=== PATIENT | female | born 1935 | race Caucasian/White ===

== ENCOUNTER → 2016-04-30 | Outpatient (CLI) | payer MEDICARE, BC, OTHER ==
--- NOTE | 2016-04-30 10:22 | REP ---
Chest PA and lateral views: There are no comparison studies. There is a 5.3 cm mass projected over the right lung inferiorly. I would recommend follow-up CT for further evaluation of this finding. The left lung is clear. Cardiac size is normal. The right hilus appears enlarged. The left hilus as are. The mediastinum and bony thorax unremarkable. Impression: There is a 5.3 cm mass projected over the right lung inferiorly. The right hilus is enlarged. I would recommend CT for follow-up. Signed by Brandon Cui MD 04/30/2016 10:13 A
== END ==
LOC: M ADAMS 09:51
PROVIDERS: ATTEND Physician Assistant
DX: R91.8 Other nonspecific abnormal finding of lung field (principal); R05 Cough
CPT/HCPCS: 71020; G0463

== ENCOUNTER → 2016-05-08 | Outpatient (REF) | payer MEDICARE, OTHER ==
[~2016-05-08] MED LIST: ALEV220T26 PO; AMBI5TAB PO; BUPR100T3 PO; CALC600T10 PO; DRIS50002 PO; LEVO75TA4 PO; OCUVTAB PO; RANI150T PO; XARE20TA PO
[2016-05-08 18:06] LABS: ANION GAP 8 MEQ/L (8-16); BLOOD UREA NITROGEN 13 MG/DL (7-18); CARBON DIOXIDE LEVEL 26 MEQ/L (21-32); CHLORIDE LEVEL 105 MEQ/L (98-107); CREATININE FOR GFR 0.88 MG/DL (0.55-1.02); GLOMERULAR FILTRATION RATE > 60.0 (>32); GLUCOSE, FASTING 116 MG/DL (83-110); POTASSIUM SERUM 4.9 MEQ/L (3.5-5.1); SODIUM LEVEL 139 MEQ/L (136-145)
== END ==
LOC: M SFHCADAM 09:25
PROVIDERS: ATTEND Family Medicine
DX: R91.8 Other nonspecific abnormal finding of lung field (principal)

== ENCOUNTER → 2016-05-12 | Outpatient (CLI) | payer MEDICARE, BC, OTHER ==
[~2016-05-12] MED LIST changes: -ALEV220T26 PO; -AMBI5TAB PO; -BUPR100T3 PO; -CALC600T10 PO; -DRIS50002 PO; +ISOVUE-370 76% 100ML VIAL (Q9967) As Ordered ONE; -LEVO75TA4 PO; -OCUVTAB PO; -RANI150T PO; -XARE20TA PO
--- NOTE | 2016-05-12 09:20 | REP ---
CT CHEST WITH CONTRAST: 05/12/2016. COMPARISON: x-ray 04/30/2016. CLINICAL HISTORY: Abnormal chest x-ray, right lower lobe mass. TECHNIQUE: 75 ml as Isovue 370 given with scanning through the chest in both coronal and sagittal reconstructions. FINDINGS: In the lateral basal segment of the right lower lobe abutting the pleura is a lobulated solid mass 5.5 x 5.2 x 3.8 cm medial basal segment. Also abutting the pleura is another mass 5.5 x 4 x 2.8 cm. Some hypodense areas within this mass which may reflect some necrosis. There is only one or two small calcifications evident. There is no pleural effusion. I see no other lung masses. There are a few peripheral bullae evident and there is bilateral cylindrical bronchiectasis. There is hilar, subcarinal, precarinal, AP window and prevascular space adenopathy. The left hilum does not appear to have adenopathy. The largest nodes are 18 mm in the right hilum, 23 mm subcarinal, 23 mm precarinal, 13 mm in the AP window, 13 mm in prevascular space, and other sub-centimeter nodes throughout the mediastinum. No axillary or supraclavicular mass. There are a few scattered bullae in the chest with hyperinflation. The aorta is without aneurysm or dissection and has atherosclerotic calcifications arch and descending portion. The main right and left pulmonary arteries and mediastinum are without filling defects. Bone windows show the sternum, manubrium, clavicles, humeral heads and scapula without destructive lesion. There are degenerative changes of the AC and glenohumeral joints. Visualized ribs are without fracture or destructive lesion. Spine shows some degenerative disc changes without acute compression deformity. In the upper abdomen, multiple small cysts scattered in both lobes of the liver, the largest in the lateral segment on the left up to 14 mm. No solid hepatic mass or biliary dilatation. No ascites. That portion of gallbladder and pancreas included were unremarkable. No adrenal mass is identified. Upper poles kidneys intact. Upper poles of kidneys intact. That portion of the pancreas seen was intact. No hiatal hernia. IMPRESSION: 1. There are two masses in the right lower lobe, one in the lateral basal segment 5.5 cm subpleural and the other in the medial basal segment also posteriorly lower lobe on the right with maximum diameter of 5.5 x 4 cm. No effusions. No satellite nodules. Some underlying cylindrical bronchiectasis and right hilar, subcarinal, precarinal, AP window and prevascular space pathologic sized adenopathy. No visible bony metastatic disease or other significant finding. Upper abdomen intact. Signed by Shalom Willson MD 05/12/2016 10:20 A
== END ==
LOC: M RAD 07:18
PROVIDERS: ATTEND Family Medicine
DX: R91.8 Other nonspecific abnormal finding of lung field (principal); J47.9 Bronchiectasis, uncomplicated
CPT/HCPCS: 71260; Q9967

== ENCOUNTER 2016-05-24 12:24 | Emergency (ER) | payer MEDICARE, BC, OTHER ==
[2016-05-24] MEDS ORDERED: ONDANSETRON 4MG/2ML VIAL (J2405) As Ordered ONE ×2 (14:06→15:33)
[2016-05-24 14:32] LABS: MEAN CORPUSCULAR HGB CONC 34.5 g/dl (32.0-36.5); MEAN CORPUSCULAR VOLUME 89.9 fl (80.0-96.0); WHITE BLOOD COUNT 9.5 K/mm3 (4.0-10.0)
[2016-05-24 14:33] LABS: LYMPH % 7.9 % (24.0-44.0); NEUTROPHILS % 84.8 % (36.0-66.0); PLATELET COUNT, AUTOMATED 365 k/mm3 (150-450); RED CELL DISTRIBUTION WIDTH 12.5 % (11.5-14.5)
[2016-05-24 14:34] LABS: BASO % 0.2 % (0.0-1.0); DIFF SLIDE NUMBER 150; EOS # 0.1 K/mm3 (0.0-0.50); EOS % 1.2 % (0.0-3.0); LARGE UNSTAINED CELL # 0.1 K/mm3 (0.0-0.4); LARGE UNSTAINED CELL % 0.6 % (0.0-4.0); LYMPH # 0.8 K/mm3 (1.5-4.5); MONO # 0.5 K/mm3 (0.0-0.8); MONO % 5.2 % (0.0-5.0); NEUTROPHILS # 8.1 K/mm3 (1.8-7.7)
[2016-05-24 14:36] LABS: CONTROL LINE MONO INT CTR LINE PRESENT
[2016-05-24 14:44] LABS: ALBUMIN 3.3 GM/DL (3.2-5.2); ALBUMIN/GLOBULIN RATIO 0.89 (1.00-1.93); ALKALINE PHOSPHATASE 94 U/L (45-117); ALT/SGPT 14 U/L (12-78); ANION GAP 10 MEQ/L (8-16); AST/SGOT 18 U/L (15-37); BILIRUBIN,TOTAL 0.6 MG/DL (0.2-1.0); BLOOD UREA NITROGEN 20 MG/DL (7-18); CALCIUM LEVEL 9.1 MG/DL (8.8-10.2); CARBON DIOXIDE LEVEL 25 MEQ/L (21-32); CHLORIDE LEVEL 102 MEQ/L (98-107); CREATININE FOR GFR 0.71 MG/DL (0.55-1.02); GLOMERULAR FILTRATION RATE > 60.0 (>32); GLUCOSE, FASTING 107 MG/DL (83-110); POTASSIUM SERUM 4.2 MEQ/L (3.5-5.1); SODIUM LEVEL 137 MEQ/L (136-145)
--- NOTE | 2016-05-24 14:49 | REP ---
Clinical: Chest pain and cough. Technique: PA and lateral. Comparison: 04/30/2016. Findings: 5 cm right lower lobe mass lesion and bilateral hilar adenopathy (right greater than left) is again appreciated. Underlying chronic interstitial changes noted. No effusion. No pneumothorax. Cardiac silhouette is normal. Skeletal structures demonstrate age-related changes. Impression: 5 cm right lower lobe mass and hilar adenopathy. Signed by Bhavesh Dillard MD 05/24/2016 02:40 P
[2016-05-24] MEDS ORDERED: MORPHINE 4 MG/ML 1ML SYRINGE As Ordered ONE (15:33)
[2016-05-24] MEDS ORDERED: ISOVUE-370 76% 100ML VIAL (Q9967) As Ordered ONE (15:35)
--- NOTE | 2016-05-24 16:53 | REP ---
Clinical: Acute chest pain. Comparison: 05/12/2016. Technique: Axial contrast enhanced images from the thoracic inlet to the upper abdomen using 100 ml Isovue 370 intravenous contrast material with coronal and sagittal re-formations. Findings: Satisfactory enhancement of the pulmonary vasculature is achieved and no filling defects are identified to suggest pulmonary embolus. Marked mediastinal and right hilar adenopathy with conglomerate lymph nodes at the level of the subcarinal space measuring greater than 4.5 cm AP diameter appears to have increased since the prior examination. Heterogeneous multilobulated right lower lobe neoplasm is essentially unchanged. Diffuse interstitial thickening involving the right lower lobe and right perihilar region may reflect associated lymphangitic metastatic disease. Chronic interstitial changes including scattered bullae and bronchiectasis noted bilaterally. Heart and pericardium are stable. Atherosclerotic changes to the coronary arteries and thoracic aorta noted without aneurysm. No obvious pericardial effusion. Limited evaluation of the upper abdomen demonstrates innumerable hepatic hypodensities which are otherwise nonspecific and similar to prior examination. The bilateral adrenal glands are grossly unremarkable. Osseous structures demonstrate degenerative changes. Impression: No evidence for pulmonary embolus. Severe mediastinal and right hilar adenopathy with multinodular right lower lobe lung mass. Chronic emphysematous and interstitial changes with bronchiectasis. Nonspecific hepatic hypodensities. Signed by Bhavesh Dillard MD 05/24/2016 04:45 P
[2016-05-24] MEDS ORDERED: AUGMENTIN 875 MG TAB As Ordered ONE (17:54)
--- NOTE | 2016-05-24 18:02 | EDDOCDS ---
Physician Documentation [facility] Name: Kasia Sandoval Age: 81 yrs Sex: Female : 1935 Arrival Date: 05/24/2016 Time: 12:24 Bed I4 / M4 Private MD: Warren Marx MD Disposition: 05/24/16 17:48 Discharged to Home/Self Care. Impression: Acute sinusitis, Other disorders of lung - Right Lower Lobe Lung Mass on CT and CXR, Bronchiectasis, Atherosclerosis - Coronary arteries and thoracic aorta on CT, Nausea and vomiting, Emphysema - Chronic. - Condition is Stable. - Discharge Instructions: Sinusitis, Adult, Bronchiectasis. - Prescriptions for Augmentin 875- 125 mg Oral Tablet - take 1 tablet by ORAL route every 12 hours for 10 days; 20 tablet. ZOFRAN ODT 4 mg - dissolve 1 tablet by ORAL route 4 times per day As needed do not chew, do not swallow whole; 10 tablet. - Medication Reconciliation, Local Pharmacy Hours form. - Follow up: Warren Marx; When: 1 - 2 days; Reason: Recheck today's complaints, Continuance of care. Follow up: Emergency Department; Reason: Worsening of conditions. Follow up: Keo Villavicencio; When: Call to arrange an appointment; Reason: Further diagnostic work-up, Recheck today's complaints, Continuance of care. Follow up: Nat Marin; When: Call to arrange an appointment; Reason: Further diagnostic work-up, Recheck today's complaints, Continuance of care. - Problem is new. - Symptoms have improved. Historical: - Allergies: Levaquin (Hives); - Home Meds: 1. levothyroxine 75 mcg Oral cap 1 cap once daily (Last dose: 05/24/2016 09:00) 2. bupropion HCl 100 mg Oral TbER 1 tab once daily (Last dose: 05/24/2016 09:00) 3. Vitamin D Oral 50,000 unit every other week 4. Ambien 5 mg Oral tab 1 tab once daily (Last dose: 05/23/2016) - PMHx: Hypothyroidism; - PSHx: none; - Social history: Smoking status: Patient states former smoker of tobacco. No barriers to communication noted, The patient speaks fluent [place], Speaks appropriately for age. - Family history: Not pertinent. - : The pt / caregiver states he / she is not on anticoagulants. Home medication list is obtained from the patient. - Exposure Risk Screening:: None identified. Vital Signs: 05/24 12:26 BP 142 / 73; Pulse 99; Resp 18 S; Temp 97.8(O); Pulse Ox 98% on R/A; Weight 65.77 kg / gr2 145 lbs (R); Height 5 ft. 6 in. (167.64 cm) (R); Pain 5/10; 15:30 BP 160 / 88 LA (man/); Pulse 98; Resp 18; Temp 97.8(O); Pulse Ox 98% on R/A; ld5 17:04 Pulse 102; Pulse Ox 97% on R/A; mb9 17:33 BP 167 / 82; Pulse 126; Resp 18; Temp 98.3(O); Pulse Ox 95% on R/A; Pain 0/10; nb2 12:26 Body Mass Index 23.40 (65.77 kg, 167.64 cm) gr2 MDM: 12:56 [facility] Payment Agreement was scanned into [employer] and attached to record. [id number] 13:45 Financial registration complete. ks16 13:46 Obtain sample by nasopharyngeal swab ordered. ef1 13:47 Monoscreen Ordered. EDMS 13:47 BNP Ordered. EDMS 13:47 CBC with Diff Ordered. EDMS 13:47 Complete Comphrensive Metabolic Ordered. EDMS 13:47 Cardiac Injury Profile Ordered. EDMS 13:47 Troponin Ordered. EDMS 13:47 Strep Screen-in lab Ordered. EDMS 13:48 -Influenza A&B Rapid Antigen - Nose Ordered. EDMS 13:48 Chest, 2 View (pa\E\lat) Ordered. EDMS 13:48 ECG WITH READING ER PHYS+CARDIAG ordered. EDMS 13:49 IV Saline Lock ordered. ef1 13:49 Ondansetron 4 mg IVP once ordered. ef1 14:03 NS 0.9% 500 ml IV at bolus once ordered. ef1 14:19 Pulse ox continuous ordered. ef1 14:23 GATS(NEG STREP SCREEN) ED ONLY Ordered. EDMS 14:51 BNP Reviewed. ef1 14:51 CBC with Diff Reviewed. ef1 14:51 Complete Comphrensive Metabolic Reviewed. ef1 14:51 Strep Screen-in lab Reviewed. ef1 14:51 -Influenza A&B Rapid Antigen - Nose Reviewed. ef1 14:51 Monoscreen Reviewed. ef1 14:51 Cardiac Injury Profile Reviewed. ef1 14:51 Troponin Reviewed. ef1 14:53 Recheck Vital Signs, perform reassessment and enter into [employer] ordered. ef1 14:54 CT Chest Angio R/O PE Ordered. EDMS 15:31 morphine 4 mg IVP once ordered. ef1 15:32 Ondansetron 2 mg IVP once ordered. ef1 17:44 Amoxicillin-Clavulanate 875 mg 1 tabs PO once ordered. ef1 Administered Medications: 14:17 Drug: Ondansetron 4 mg [ondansetron HCl 2 mg/mL intravenous solution (2 mL)] Route: mb9 IVP; Site: right antecubital; 14:17 Drug: NS 0.9% 500 ml [sodium chloride 0.9 % intravenous solution] Route: IV; Rate: mb9 bolus; Site: right antecubital; 15:31 Follow up: IV Status: Completed infusion; IV Intake: 500ml ld5 15:42 Drug: Ondansetron 2 mg [ondansetron HCl 2 mg/mL intravenous solution (1 mL)] Route: ld5 IVP; Site: right antecubital; 15:43 Drug: morphine 4 mg [morphine 4 mg/mL intravenous cartridge (1 mL)] Route: IVP; Site: ld5 right antecubital; 17:59 Drug: Amoxicillin-Clavulanate 1 tabs [amoxicillin 875 mg-potassium clavulanate 125 mg dls tablet (1 tabs)] Route: PO; Signatures: Dispatcher [employer] EDMS Cathie Cm, RN RN dls Kelle Lockhart PA-C PA-C ef1 Larissa Chavez RN RN dsf Melissa Morales, Reg Reg ks16 Kiana Almanzar RN ld5 Iam Thompson RN mb9 The chart was reviewed and I authenticate all verbal orders and agree with the evaluation and treatment provided.Attachments: 12:56 [facility] Payment Agreement [email or web address]
--- NOTE | 2016-05-24 18:02 | EDDOCDS ---
Nurse's Notes [facility] Name: Kasia Sandoval Age: 81 yrs Sex: Female : 1935 Arrival Date: 05/24/2016 Time: 12:24 Bed I4 / M4 Private MD: Warren Marx MD Diagnosis: Acute sinusitis;Other disorders of lung-Right Lower Lobe Lung Mass on CT and CXR;Bronchiectasis;Atherosclerosis-Coronary arteries and thoracic aorta on CT;Nausea and vomiting;Emphysema-Chronic Presentation: 05/24 12:33 Presenting complaint: Patient states: sick for a week. pt reports not eating or dsf drinking. pt c/o nausea, and CHISHOLM. pt denies abdominal pain. Adult Sepsis Screening: The patient does not have new or worsening altered mentation. Patient's respiratory rate is less than 22. Systolic blood pressure is greater than 100. Patient has a qSOFA score of 0- Negative Sepsis Screen. Suicide/Homicide risk assessment- the patient denies having any suicidal and/or homicidal ideations and does not present with any other emotional, behavioral or mental health complaints. Status: Patient is not a field service coordinator or dependent. Transition of care: patient was not received from another setting of care. 12:33 Acuity: ILDA Level 3 dsf 12:33 Method Of Arrival: Walkin/Carried/Asstd dsf Triage Assessment: 12:35 General: Appears in no apparent distress, Behavior is appropriate for age, cooperative. dsf Pain: Location: forehead Pain currently is 4 out of 10 on a pain scale. Quality of pain is described as aching. GI: Reports nausea. Historical: - Allergies: Levaquin (Hives); - Home Meds: 1. levothyroxine 75 mcg Oral cap 1 cap once daily (Last dose: 05/24/2016 09:00) 2. bupropion HCl 100 mg Oral TbER 1 tab once daily (Last dose: 05/24/2016 09:00) 3. Vitamin D Oral 50,000 unit every other week 4. Ambien 5 mg Oral tab 1 tab once daily (Last dose: 05/23/2016) - PMHx: Hypothyroidism; - PSHx: none; - Social history: Smoking status: Patient states former smoker of tobacco. No barriers to communication noted, The patient speaks fluent Danish, Speaks appropriately for age. - Family history: Not pertinent. - : The pt / caregiver states he / she is not on anticoagulants. Home medication list is obtained from the patient. - Exposure Risk Screening:: None identified. Screenin:00 Screening information is obtained from the patient. Fall risk: No risks identified. dls Assistance ADL's: requires no assistance with activities of daily living. Abuse/DV Screen: The patient / caregiver reports he/she is: not in a situation that causes fear, pain or injury. Nutritional screening: No deficits noted. Advance Directives: Currently, there is no health care proxy. There is no active DNR order. There is no living will. There is no Power of [employer]. Advance directive information has not previously been placed in an [facility] medical record. home support is adequate. Assessment: 14:18 General: Appears uncomfortable, Behavior is appropriate for age, cooperative. Pain: mb9 Location: abdomen Pain currently is 0 out of 10 on a pain scale. Aggravated by coughing and deep inspiration. Respiratory: Airway is patent Respiratory effort is even, unlabored, Breath sounds are clear bilaterally. 15:30 General: Pt laying quietly in bed. BP noted to be higher than ER arrival. Pt reports ld5 headache but states it is unchanged since arrival. Provider made aware of vitals. 15:45 General: Behavior is anxious, cooperative, Pt medicated per orders. SO at bedside. Will ld5 continue to monitor. 17:04 General: Appears in no apparent distress, Behavior is appropriate for age, cooperative. mb9 Respiratory: Airway is patent Respiratory effort is even, unlabored. Vital Signs: 12:26 BP 142 / 73; Pulse 99; Resp 18 S; Temp 97.8(O); Pulse Ox 98% on R/A; Weight 65.77 kg gr2 (R); Height 5 ft. 6 in. (167.64 cm) (R); Pain 5/10; 15:30 BP 160 / 88 LA (man/); Pulse 98; Resp 18; Temp 97.8(O); Pulse Ox 98% on R/A; ld5 17:04 Pulse 102; Pulse Ox 97% on R/A; mb9 17:33 BP 167 / 82; Pulse 126; Resp 18; Temp 98.3(O); Pulse Ox 95% on R/A; Pain 0/10; nb2 12:26 Body Mass Index 23.40 (65.77 kg, 167.64 cm) gr2 Vitals: 12:26 Log In Time: May 24, 2016 at 12:26. gr2 ED Course: 12:26 Patient visited by Codi Boucher. gr2 12:26 Warren Marx is Private Physician. gr2 12:26 Patient moved to Waiting gr2 12:27 Patient visited by Codi Boucher. gr2 12:27 Patient moved to Pre RCE gr2 12:33 Triage Initiated dsf 12:56 [facility] Payment Agreement was scanned into [employer] and attached to record. ks16 13:12 Patient moved to Triage 3 kr3 13:45 Kelle Lockhart PA-C is PHCP. ef1 13:45 Hilda Flanagan MD is Attending Physician. ef1 13:45 Patient visited by Kelle Lockhart PA-C. ef1 13:52 Patient moved to I4 / M4 ct3 13:59 Accompanied by Family Member, Patient has correct armband on for positive ct3 identification. Placed in gown. Bed in low position. Call light in reach. Side rails up X 1. Cardiac monitoring not applicable on this patient. 13:59 EKG done. (by ED staff). Reviewed by Kelle Lockhart PA-C. ct3 14:01 Patient visited by Sara Rodas PCA. ct3 14:17 Troponin Sent. mb9 14:17 Cardiac Injury Profile Sent. mb9 14:17 Complete Comphrensive Metabolic Sent. mb9 14:17 CBC with Diff Sent. mb9 14:17 BNP Sent. mb9 14:18 Monoscreen Sent. mb9 14:19 Patient visited by Kelle Lockhart PA-C. ef1 14:23 Inserted saline lock: 18 gauge in right antecubital area and blood collected. The mb9 patient tolerated the procedure well. 14:50 Patient visited by Kelle Lockhart PA-C. ef1 14:58 Chest, 2 View (pa\E\lat) Returned. EDMS 15:21 Patient visited by Kelle Lockhart PA-C. ef1 15:45 Patient visited by Kiana Almanzar RN. ld5 16:10 Patient visited by Kelle Lockhart PA-C. ef1 16:33 GATS(NEG STREP SCREEN) ED ONLY Sent. mb9 16:42 Patient visited by Kelle Lockhart PA-C. ef1 17:09 Patient visited by Kelle Lockhart PA-C. ef1 17:31 CT Chest Angio R/O PE Returned. EDMS 17:34 Patient visited by Brittany Esquivel. nb2 17:45 Warren Marx is Referral Physician. ef1 17:45 Keo Villavicencio is Referral Physician. ef1 17:45 Nat Marin is Referral Physician. ef1 17:59 Discontinued IV lock intact, bleeding controlled, pressure dressing applied, No dls redness/swelling at site. No procedures done that require assistance. 18:00 The patient / caregiver is instructed regarding the plan of care and ED course. dls Administered Medications: 14:17 Drug: Ondansetron 4 mg [ondansetron HCl 2 mg/mL intravenous solution (2 mL)] Route: mb9 IVP; Site: right antecubital; 14:17 Drug: NS 0.9% 500 ml [sodium chloride 0.9 % intravenous solution] Route: IV; Rate: mb9 bolus; Site: right antecubital; 15:31 Follow up: IV Status: Completed infusion; IV Intake: 500ml ld5 15:42 Drug: Ondansetron 2 mg [ondansetron HCl 2 mg/mL intravenous solution (1 mL)] Route: ld5 IVP; Site: right antecubital; 15:43 Drug: morphine 4 mg [morphine 4 mg/mL intravenous cartridge (1 mL)] Route: IVP; Site: ld5 right antecubital; 17:59 Drug: Amoxicillin-Clavulanate 1 tabs [amoxicillin 875 mg-potassium clavulanate 125 mg dls tablet (1 tabs)] Route: PO; Intake: 15:31 IV: 500.00ml; Total: 500.00ml. ld5 Order Results: Lab Order: Strep Screen-in lab; SPEC'M 05/24/16 13:51 Test: STREP SCREEN by ICA; Value: STREP SCREEN RESULT NEGATIVE; Status: F Lab Order: -Influenza A&B Rapid Antigen - Nose; SPEC'M 05/24/16 13:51 Test: INFLUENZA A RAPID SCR by ICA; Value: INFLUENZA A RESULTS NEGATIVE; Status: F Test: INFLUENZA A RAPID SCR by ICA; Value: Comments:; Status: F Test: INFLUENZA B RAPID SCR by ICA; Value: INFLUENZA B RESULTS NEGATIVE; Status: F Test Note: ; The Influenza test is a direct rapid immunoassay for the qualitative detection of Influenza viral antigen. Cell culture (Viral Culture) testing should be considered to confirm NEGATIVE results and to assist in detecting other viruses that can provide similar clinical symptoms. Please contact the lab within 24 hours ([phone]) if confirmatory testing is desired. Lab Order: Monoscreen; SPEC'M 05/24/16 14:14 Test: MONO SCRN; Value: NEGATIVE; Range: NEGATIVE; Status: F Lab Order: BNP; SPEC'M 05/24/16 14:14 Test: BRAIN NATRIURETIC PEPTIDE; Value: 112; Range: <100; Abnormal: Above high normal; Units: PG/ML; Status: F Lab Order: CBC with Diff; SPEC'M 05/24/16 14:14 Test: WHITE BLOOD COUNT; Value: 9.5; Range: 4.0-10.0; Units: K/mm3; Status: F Test: RED BLOOD COUNT; Value: 3.96; Range: 4.00-5.40; Abnormal: Below low normal; Units: M/mm3; Status: F Test: HEMOGLOBIN; Value: 12.3; Range: 12.0-16.0; Units: g/dl; Status: F Test: HEMATOCRIT; Value: 35.6; Range: 36.0-47.0; Abnormal: Below low normal; Units: %; Status: F Test: MEAN CORPUSCULAR VOLUME; Value: 89.9; Range: 80.0-96.0; Units: fl; Status: F Test: MEAN CORPUSCULAR HEMOGLOBIN; Value: 31.0; Range: 27.0-33.0; Units: pg; Status: F Test: MEAN CORPUSCULAR HGB CONC; Value: 34.5; Range: 32.0-36.5; Units: g/dl; Status: F Test: RED CELL DISTRIBUTION WIDTH; Value: 12.5; Range: 11.5-14.5; Units: %; Status: F Test: PLATELET COUNT, AUTOMATED; Value: 365; Range: 150-450; Units: k/mm3; Status: F Test: NEUTROPHILS %; Value: 84.8; Range: 36.0-66.0; Abnormal: Above high normal; Units: %; Status: F Test: LYMPH %; Value: 7.9; Range: 24.0-44.0; Abnormal: Below low normal; Units: %; Status: F Test: MONO %; Value: 5.2; Range: 0.0-5.0; Abnormal: Above high normal; Units: %; Status: F Test: EOS %; Value: 1.2; Range: 0.0-3.0; Units: %; Status: F Test: BASO %; Value: 0.2; Range: 0.0-1.0; Units: %; Status: F Test: LARGE UNSTAINED CELL %; Value: 0.6; Range: 0.0-4.0; Units: %; Status: F Test: NEUTROPHILS #; Value: 8.1; Range: 1.8-7.7; Abnormal: Above high normal; Units: K/mm3; Status: F Test: LYMPH #; Value: 0.8; Range: 1.5-4.5; Abnormal: Below low normal; Units: K/mm3; Status: F Test: MONO #; Value: 0.5; Range: 0.0-0.8; Units: K/mm3; Status: F Test: EOS #; Value: 0.1; Range: 0.0-0.50; Units: K/mm3; Status: F Test: BASO #; Value: 0.0; Range: 0.0-0.2; Units: K/mm3; Status: F Test: LARGE UNSTAINED CELL #; Value: 0.1; Range: 0.0-0.4; Units: K/mm3; Status: F Lab Order: Complete Comphrensive Metabolic; SPEC'M 05/24/16 14:14 Test: GLUCOSE, FASTING; Value: 107; Range: 83-110; Units: MG/DL; Status: F Test: BLOOD UREA NITROGEN; Value: 20; Range: 7-18; Abnormal: Above high normal; Units: MG/DL; Status: F Test: CREATININE FOR GFR; Value: 0.71; Range: 0.55-1.02; Units: MG/DL; Status: F Test: SODIUM LEVEL; Range: 136-145; Units: MEQ/L; Status: I Test: POTASSIUM SERUM; Range: 3.5-5.1; Units: MEQ/L; Status: I Test: CHLORIDE LEVEL; Range: 98-107; Units: MEQ/L; Status: I Test: CARBON DIOXIDE LEVEL; Range: 21-32; Units: MEQ/L; Status: I Test: ANION GAP; Range: 8-16; Units: MEQ/L; Status: I Test: CALCIUM LEVEL; Range: 8.8-10.2; Units: MG/DL; Status: I Test: AST/SGOT; Range: 15-37; Units: U/L; Status: I Test: ALT/SGPT; Range: 12-78; Units: U/L; Status: I Test: ALKALINE PHOSPHATASE; Range: 45-117; Units: U/L; Status: I Test: BILIRUBIN,TOTAL; Range: 0.2-1.0; Units: MG/DL; Status: I Test: TOTAL PROTEIN; Range: 6.4-8.2; Units: GM/DL; Status: I Test: ALBUMIN; Range: 3.2-5.2; Units: GM/DL; Status: I Test: ALBUMIN/GLOBULIN RATIO; Range: 1.00-1.93; Status: I Test: GLOMERULAR FILTRATION RATE; Value: > 60.0; Range: >32; Status: F Test: SODIUM LEVEL; Value: 137; Range: 136-145; Units: MEQ/L; Status: F Test: POTASSIUM SERUM; Value: 4.2; Range: 3.5-5.1; Units: MEQ/L; Status: F Test: CHLORIDE LEVEL; Value: 102; Range: 98-107; Units: MEQ/L; Status: F Test: CARBON DIOXIDE LEVEL; Value: 25; Range: 21-32; Units: MEQ/L; Status: F Test: ANION GAP; Value: 10; Range: 8-16; Units: MEQ/L; Status: F Test: CALCIUM LEVEL; Value: 9.1; Range: 8.8-10.2; Units: MG/DL; Status: F Test: AST/SGOT; Value: 18; Range: 15-37; Units: U/L; Status: F Test: ALT/SGPT; Value: 14; Range: 12-78; Units: U/L; Status: F Test: ALKALINE PHOSPHATASE; Value: 94; Range: 45-117; Units: U/L; Status: F Test: BILIRUBIN,TOTAL; Value: 0.6; Range: 0.2-1.0; Units: MG/DL; Status: F Test: TOTAL PROTEIN; Value: 7.0; Range: 6.4-8.2; Units: GM/DL; Status: F Test: ALBUMIN; Value: 3.3; Range: 3.2-5.2; Units: GM/DL; Status: F Test: ALBUMIN/GLOBULIN RATIO; Value: 0.89; Range: 1.00-1.93; Abnormal: Below low normal; Status: F Test Note: ; Units are mL/min/1.73 m2 Chronic Kidney Disease Staging per NKF: Stage I & II GFR >=60 Normal to Mildly Decreased Stage III GFR 30-59 Moderately Decreased Stage IV GFR 15-29 Severely Decreased Stage V GFR <15 Very Little GFR Left ESRD GFR <15 on CLINICAL TRIALS ASSISTANT Lab Order: Cardiac Injury Profile; SPEC'M 05/24/16 14:14 Test: CPK CREATINE PHOSPHOKINASE; Value: 35; Range: 26-192; Units: U/L; Status: F Test: CK-MB VALUE MASS; Value: 1.0; Range: 0.0-3.6; Units: NG/ML; Status: F Test: MB/CK RELATIVE INDEX; Value: 2.85; Range: < OR =4; Status: F Test Note: ; DIAGNOSIS CRITERIA MMB ng/ml Relative Index (RI) NON-AMI < or = 5 N/A LANZA ZONE > 5 < or = 4 AMI > 5 > 4 Lab Order: Troponin; SPEC'M 05/24/16 14:14 Test: TROPONIN I; Value: < 0.02; Range: < 0.10; Units: NG/ML; Status: F Test Note: ; Troponin I Reference Interval for [employer] LOCI: 99th Percentile= 0.00-0.045 ng/ml Risk Stratification: <= 0.10 ng/ml Decreased Risk for Adverse Clinical Events. 0.10-1.50 ng/ml Increased Risk for Adverse Clinical Events. Evaluation of additional criterion and/or repeat testing in 2-6 hours is suggested to rule out myocardial damage. >= 1.50 ng/ml Indicative of Myocardial Injury. Radiology Order: Chest, 2 View (pa\E\lat) Test: Chest, 2 View (pa\E\lat) REASON FOR EXAMINATION: Cough;Chest Pain; Clinical: Chest pain and cough.; ; Technique: PA and lateral.; ; Comparison: 04/30/2016.; ; Findings:; 5 cm right lower lobe mass lesion and bilateral hilar adenopathy (right greater; than left) is again appreciated. Underlying chronic interstitial changes noted.; No effusion. No pneumothorax. Cardiac silhouette is normal. Skeletal; structures demonstrate age-related changes.; ; Impression:; 5 cm right lower lobe mass and hilar adenopathy.; ; ; Signed by; Bhavesh Dillard MD 05/24/2016 02:40 P; Radiology Order: CT Chest Angio R/O PE Test: CT Chest Angio R/O PE REASON FOR EXAMINATION: Chest Pain; Clinical: Acute chest pain.; ; Comparison: 05/12/2016.; ; Technique: Axial contrast enhanced images from the thoracic inlet to the upper; abdomen using 100 ml Isovue 370 intravenous contrast material with coronal and; sagittal re-formations.; ; Findings:; Satisfactory enhancement of the pulmonary vasculature is achieved and no filling; defects are identified to suggest pulmonary embolus.; ; Marked mediastinal and right hilar adenopathy with conglomerate lymph nodes at; the level of the subcarinal space measuring greater than 4.5 cm AP diameter; appears to have increased since the prior examination. Heterogeneous; multilobulated right lower lobe neoplasm is essentially unchanged. 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 Chronic interstitial; changes including scattered bullae and bronchiectasis noted bilaterally. Heart; and pericardium are stable. Atherosclerotic changes to the coronary arteries and; thoracic aorta noted without aneurysm. No obvious pericardial effusion.; ; Limited evaluation of the upper abdomen demonstrates innumerable hepatic; hypodensities which are otherwise nonspecific and similar to prior examination.; The bilateral adrenal glands are grossly unremarkable. Osseous structures; demonstrate degenerative changes.; ; ; Impression:; No evidence for pulmonary embolus.; Severe mediastinal and right hilar adenopathy with multinodular right lower lobe; lung mass.; Chronic emphysematous and interstitial changes with bronchiectasis.; Nonspecific hepatic hypodensities.; ; ; Signed by; Bhavesh Dillard MD 05/24/2016 04:45 P; Outcome: 17:48 Discharge ordered by Provider. ef1 17:59 Discharge Assessment: Patient awake, alert and oriented x 3. No cognitive and/or dls functional deficits noted. Patient verbalized understanding of disposition instructions. patient administered narcotics - no. The following High Risk Discharge criteria are identified: None. Discharged to home ambulatory, with significant other. Condition: stable. Discharge instructions given to patient, Instructed on discharge instructions, follow up and referral plans. medication usage, Demonstrated understanding of instructions, medications, Pt was receptive of discharge instructions/ teaching. Prescriptions given X 2. CT Study completed. Property sent home with patient. 18:01 Patient left the ED. dls Signatures: Dispatcher [employer] EDMS Cathie Cm, RN RN dls Megan Hamilton,RN RN kr3 Kelle Lockhart, PA-C PA-C ef1 Kiana AlmanzarRN RN ld5 Sara Rodas, EXECUTIVE OFFICER EXECUTIVE OFFICER ct3 Larissa ChavezRN RN dsf Codi Boucher gr2 Iam ThompsonRN RN mb9 Melissa Morales, Reg Reg ks16 Brittany Esquivel2 MTDRobert
--- NOTE | 2016-05-24 19:49 | ECGEPIP ---
Stationary ECG Study [facility] ED Test Date: 2016-05-24 Pat Name: TAWNY CARDOZA Department: Room: - Gender: F Pest Technician: ct : 1935 Requested By: Kelle Lockhart PA-C Order Number: [id number] Reading MD: Janice Garcia Measurements Intervals [place] Rate: 122 P: 57 HI: 161 QRS: 23 QRSD: 85 T: 60 QT: 306 QTc: 437 Interpretive Statements SINUS TACHYCARDIA WITH FREQUENT VENTRICULAR PREMATURE COMPLEXES POSSIBLE RIGHT VENTRICULAR CONDUCTION DELAY ABNORMAL RHYTHM ECG NO PRIOR FOR COMPARISON Electronically Signed On 05-24-2016 19:49:11 EST by Janice Garcia
--- NOTE | 2016-05-26 19:02 | EDDOCDS ---
Physician Documentation [facility] Name: Kasia Sandoval Age: 81 yrs Sex: Female : 1935 Arrival Date: 05/24/2016 Time: 12:24 Bed I4 / M4 Private MD: Warren Marx MD Disposition: 05/24/16 17:48 Discharged to Home/Self Care. Impression: Acute sinusitis, Other disorders of lung - Right Lower Lobe Lung Mass on CT and CXR, Bronchiectasis, Atherosclerosis - Coronary arteries and thoracic aorta on CT, Nausea and vomiting, Emphysema - Chronic. - Condition is Stable. - Discharge Instructions: Sinusitis, Adult, Bronchiectasis. - Prescriptions for Augmentin 875- 125 mg Oral Tablet - take 1 tablet by ORAL route every 12 hours for 10 days; 20 tablet. ZOFRAN ODT 4 mg - dissolve 1 tablet by ORAL route 4 times per day As needed do not chew, do not swallow whole; 10 tablet. - Medication Reconciliation, Local Pharmacy Hours form. - Follow up: Warren Marx; When: 1 - 2 days; Reason: Recheck today's complaints, Continuance of care. Follow up: Emergency Department; Reason: Worsening of conditions. Follow up: Keo Villavicencio; When: Call to arrange an appointment; Reason: Further diagnostic work-up, Recheck today's complaints, Continuance of care. Follow up: Nat Marin; When: Call to arrange an appointment; Reason: Further diagnostic work-up, Recheck today's complaints, Continuance of care. - Problem is new. - Symptoms have improved. Historical: - Allergies: Levaquin (Hives); - Home Meds: 1. levothyroxine 75 mcg Oral cap 1 cap once daily (Last dose: 05/24/2016 09:00) 2. bupropion HCl 100 mg Oral TbER 1 tab once daily (Last dose: 05/24/2016 09:00) 3. Vitamin D Oral 50,000 unit every other week 4. Ambien 5 mg Oral tab 1 tab once daily (Last dose: 05/23/2016) - PMHx: Hypothyroidism; - PSHx: none; - Social history: Smoking status: Patient states former smoker of tobacco. No barriers to communication noted, The patient speaks fluent Bermudian, Speaks appropriately for age. - Family history: Not pertinent. - : The pt / caregiver states he / she is not on anticoagulants. Home medication list is obtained from the patient. - Exposure Risk Screening:: None identified. Vital Signs: 05/24 12:26 BP 142 / 73; Pulse 99; Resp 18 S; Temp 97.8(O); Pulse Ox 98% on R/A; Weight 65.77 kg / gr2 145 lbs (R); Height 5 ft. 6 in. (167.64 cm) (R); Pain 5/10; 15:30 BP 160 / 88 LA (man/); Pulse 98; Resp 18; Temp 97.8(O); Pulse Ox 98% on R/A; ld5 17:04 Pulse 102; Pulse Ox 97% on R/A; mb9 17:33 BP 167 / 82; Pulse 126; Resp 18; Temp 98.3(O); Pulse Ox 95% on R/A; Pain 0/10; nb2 12:26 Body Mass Index 23.40 (65.77 kg, 167.64 cm) gr2 MDM: 12:56 [facility] Payment Agreement was scanned into [employer] and attached to record. ks16 13:45 Financial registration complete. ks16 13:46 Obtain sample by nasopharyngeal swab ordered. ef1 13:47 Monoscreen Ordered. EDMS 13:47 BNP Ordered. EDMS 13:47 CBC with Diff Ordered. EDMS 13:47 Complete Comphrensive Metabolic Ordered. EDMS 13:47 Cardiac Injury Profile Ordered. EDMS 13:47 Troponin Ordered. EDMS 13:47 Strep Screen-in lab Ordered. EDMS 13:48 -Influenza A&B Rapid Antigen - Nose Ordered. EDMS 13:48 Chest, 2 View (pa\E\lat) Ordered. EDMS 13:48 ECG WITH READING ER PHYS+CARDIAG ordered. EDMS 13:49 IV Saline Lock ordered. ef1 13:49 Ondansetron 4 mg IVP once ordered. ef1 14:03 NS 0.9% 500 ml IV at bolus once ordered. ef1 14:19 Pulse ox continuous ordered. ef1 14:23 GATS(NEG STREP SCREEN) ED ONLY Ordered. EDMS 14:51 BNP Reviewed. ef1 14:51 CBC with Diff Reviewed. ef1 14:51 Complete Comphrensive Metabolic Reviewed. ef1 14:51 Strep Screen-in lab Reviewed. ef1 14:51 -Influenza A&B Rapid Antigen - Nose Reviewed. ef1 14:51 Monoscreen Reviewed. ef1 14:51 Cardiac Injury Profile Reviewed. ef1 14:51 Troponin Reviewed. ef1 14:53 Recheck Vital Signs, perform reassessment and enter into [employer] ordered. ef1 14:54 CT Chest Angio R/O PE Ordered. EDMS 15:31 morphine 4 mg IVP once ordered. ef1 15:32 Ondansetron 2 mg IVP once ordered. ef1 17:44 Amoxicillin-Clavulanate 875 mg 1 tabs PO once ordered. ef1 20:25 T-Sheet-- Draft Copy was scanned into [employer] and attached to record. klr 05/26 11:17 ECG/EKG was scanned into [employer] and attached to record. lg 11:18 Radiology Report was scanned into [employer] and attached to record. lg Administered Medications: 05/24 14:17 Drug: Ondansetron 4 mg [ondansetron HCl 2 mg/mL intravenous solution (2 mL)] Route: mb9 IVP; Site: right antecubital; 14:17 Drug: NS 0.9% 500 ml [sodium chloride 0.9 % intravenous solution] Route: IV; Rate: mb9 bolus; Site: right antecubital; 15:31 Follow up: IV Status: Completed infusion; IV Intake: 500ml ld5 15:42 Drug: Ondansetron 2 mg [ondansetron HCl 2 mg/mL intravenous solution (1 mL)] Route: ld5 IVP; Site: right antecubital; 15:43 Drug: morphine 4 mg [morphine 4 mg/mL intravenous cartridge (1 mL)] Route: IVP; Site: ld5 right antecubital; 17:59 Drug: Amoxicillin-Clavulanate 1 tabs [amoxicillin 875 mg-potassium clavulanate 125 mg dls tablet (1 tabs)] Route: PO; Signatures: Dispatcher MedHost EDMS Cathie Cm, HONEY MÉNDEZ dls Willie Grier, Reg Reg lg Kelle Lockhart, PABogdanC PABogdanC ef1 Larissa Chavez RN RN dsf Sorenson, Kimberly, Reg Reg ks16 Carolyn Alcala Laura RN ld5 Iam Thompson RN mb9 The chart was reviewed and I authenticate all verbal orders and agree with the evaluation and treatment provided.Attachments: 12:56 [facility] Payment Agreement ks16 20:25 T-Sheet-- Draft Copy r 05/26 11:17 ECG/EKG lg Chart Complete MTDD
--- NOTE | 2016-05-26 19:02 | EDDOCDS ---
Nurse's Notes [facility] Name: Tawny Sandoval Age: 81 yrs Sex: Female : 1935 Arrival Date: 05/24/2016 Time: 12:24 Bed I4 / M4 Private MD: Warren Marx MD Diagnosis: Acute sinusitis;Other disorders of lung-Right Lower Lobe Lung Mass on CT and CXR;Bronchiectasis;Atherosclerosis-Coronary arteries and thoracic aorta on CT;Nausea and vomiting;Emphysema-Chronic Presentation: 05/24 12:33 Presenting complaint: Patient states: sick for a week. pt reports not eating or dsf drinking. pt c/o nausea, and CHISHOLM. pt denies abdominal pain. Adult Sepsis Screening: The patient does not have new or worsening altered mentation. Patient's respiratory rate is less than 22. Systolic blood pressure is greater than 100. Patient has a qSOFA score of 0- Negative Sepsis Screen. Suicide/Homicide risk assessment- the patient denies having any suicidal and/or homicidal ideations and does not present with any other emotional, behavioral or mental health complaints. 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 Transition of care: patient was not received from another setting of care. 12:33 Acuity: ILDA Level 3 dsf 12:33 Method Of Arrival: Walkin/Carried/Asstd dsf Triage Assessment: 12:35 General: Appears in no apparent distress, Behavior is appropriate for age, cooperative. dsf Pain: Location: forehead Pain currently is 4 out of 10 on a pain scale. Quality of pain is described as aching. GI: Reports nausea. Historical: - Allergies: Levaquin (Hives); - Home Meds: 1. levothyroxine 75 mcg Oral cap 1 cap once daily (Last dose: 05/24/2016 09:00) 2. bupropion HCl 100 mg Oral TbER 1 tab once daily (Last dose: 05/24/2016 09:00) 3. Vitamin D Oral 50,000 unit every other week 4. Ambien 5 mg Oral tab 1 tab once daily (Last dose: 05/23/2016) - PMHx: Hypothyroidism; - PSHx: none; - Social history: Smoking status: Patient states former smoker of tobacco. No barriers to communication noted, The patient speaks fluent Mongolian, Speaks appropriately for age. - Family history: Not pertinent. - : The pt / caregiver states he / she is not on anticoagulants. Home medication list is obtained from the patient. - Exposure Risk Screening:: None identified. Screenin:00 Screening information is obtained from the patient. Fall risk: No risks identified. dls Assistance ADL's: requires no assistance with activities of daily living. Abuse/DV Screen: The patient / caregiver reports he/she is: not in a situation that causes fear, pain or injury. Nutritional screening: No deficits noted. Advance Directives: Currently, there is no health care proxy. There is no active DNR order. There is no living will. There is no Power of Cops. Advance directive information has not previously been placed in an [facility] medical record. home support is adequate. Assessment: 14:18 General: Appears uncomfortable, Behavior is appropriate for age, cooperative. Pain: mb9 Location: abdomen Pain currently is 0 out of 10 on a pain scale. Aggravated by coughing and deep inspiration. Respiratory: Airway is patent Respiratory effort is even, unlabored, Breath sounds are clear bilaterally. 15:30 General: Pt laying quietly in bed. BP noted to be higher than ER arrival. Pt reports ld5 headache but states it is unchanged since arrival. Provider made aware of vitals. 15:45 General: Behavior is anxious, cooperative, Pt medicated per orders. SO at bedside. Will ld5 continue to monitor. 17:04 General: Appears in no apparent distress, Behavior is appropriate for age, cooperative. mb9 Respiratory: Airway is patent Respiratory effort is even, unlabored. Vital Signs: 12:26 BP 142 / 73; Pulse 99; Resp 18 S; Temp 97.8(O); Pulse Ox 98% on R/A; Weight 65.77 kg gr2 (R); Height 5 ft. 6 in. (167.64 cm) (R); Pain 5/10; 15:30 BP 160 / 88 LA (man/); Pulse 98; Resp 18; Temp 97.8(O); Pulse Ox 98% on R/A; ld5 17:04 Pulse 102; Pulse Ox 97% on R/A; mb9 17:33 BP 167 / 82; Pulse 126; Resp 18; Temp 98.3(O); Pulse Ox 95% on R/A; Pain 0/10; nb2 12:26 Body Mass Index 23.40 (65.77 kg, 167.64 cm) gr2 Vitals: 12:26 Log In Time: May 24, 2016 at 12:26. gr2 ED Course: 12:26 Patient visited by Codi Boucher. gr2 12:26 Warren Marx is Private Physician. gr2 12:26 Patient moved to Waiting gr2 12:27 Patient visited by Codi Boucher. gr2 12:27 Patient moved to Pre RCE gr2 12:33 Triage Initiated dsf 12:56 [facility] Payment Agreement was scanned into [email or web address] and attached to record. ks16 13:12 Patient moved to Triage 3 kr3 13:45 Kelle Lockhart PA-C is PHCP. ef1 13:45 Hilda Flanagan MD is Attending Physician. ef1 13:45 Patient visited by Kelle Lockhart PA-C. ef1 13:52 Patient moved to I4 / M4 ct3 13:59 Accompanied by Family Member, Patient has correct armband on for positive ct3 identification. Placed in gown. Bed in low position. Call light in reach. Side rails up X 1. Cardiac monitoring not applicable on this patient. 13:59 EKG done. (by ED staff). Reviewed by Kelle Lockhart PA-C. ct3 14:01 Patient visited by Sara Rodas PCA. ct3 14:17 Troponin Sent. mb9 14:17 Cardiac Injury Profile Sent. mb9 14:17 Complete Comphrensive Metabolic Sent. mb9 14:17 CBC with Diff Sent. mb9 14:17 BNP Sent. mb9 14:18 Monoscreen Sent. mb9 14:19 Patient visited by Kelle Lockhart PA-C. ef1 14:23 Inserted saline lock: 18 gauge in right antecubital area and blood collected. The mb9 patient tolerated the procedure well. 14:50 Patient visited by Kelle Lockhart PA-C. ef1 14:58 Chest, 2 View (pa\E\lat) Returned. EDMS 15:21 Patient visited by Kelle Lockhart PA-C. ef1 15:45 Patient visited by Kiana Almanzar RN. ld5 16:10 Patient visited by Kelle Lockhart PA-C. ef1 16:33 GATS(NEG STREP SCREEN) ED ONLY Sent. mb9 16:42 Patient visited by Kelle Lockhart PA-C. ef1 17:09 Patient visited by Kelle Lockhart PA-C. ef1 17:31 CT Chest Angio R/O PE Returned. EDMS 17:34 Patient visited by Brittany Esquivel. nb2 17:45 Warren Marx is Referral Physician. ef1 17:45 Keo Villavicencio is Referral Physician. ef1 17:45 Nat Marin is Referral Physician. ef1 17:59 Discontinued IV lock intact, bleeding controlled, pressure dressing applied, No dls redness/swelling at site. No procedures done that require assistance. 18:00 The patient / caregiver is instructed regarding the plan of care and ED course. dls 20:06 EKG-ADULT Returned. EDMS 20:25 T-Sheet-- Draft Copy was scanned into [email or web address] and attached to record. klr 05/26 11:17 ECG/EKG was scanned into [email or web address] and attached to record. lg 11:18 Radiology Report was scanned into [email or web address] and attached to record. lg Administered Medications: 05/24 14:17 Drug: Ondansetron 4 mg [ondansetron HCl 2 mg/mL intravenous solution (2 mL)] Route: mb9 IVP; Site: right antecubital; 14:17 Drug: NS 0.9% 500 ml [sodium chloride 0.9 % intravenous solution] Route: IV; Rate: mb9 bolus; Site: right antecubital; 15:31 Follow up: IV Status: Completed infusion; IV Intake: 500ml ld5 15:42 Drug: Ondansetron 2 mg [ondansetron HCl 2 mg/mL intravenous solution (1 mL)] Route: ld5 IVP; Site: right antecubital; 15:43 Drug: morphine 4 mg [morphine 4 mg/mL intravenous cartridge (1 mL)] Route: IVP; Site: ld5 right antecubital; 17:59 Drug: Amoxicillin-Clavulanate 1 tabs [amoxicillin 875 mg-potassium clavulanate 125 mg dls tablet (1 tabs)] Route: PO; Intake: 15:31 IV: 500.00ml; Total: 500.00ml. ld5 Order Results: Lab Order: Strep Screen-in lab; SPEC'M 05/24/16 13:51 Test: STREP SCREEN by ICA; Value: STREP SCREEN RESULT NEGATIVE; Status: F Lab Order: -Influenza A&B Rapid Antigen - Nose; SPEC'M 05/24/16 13:51 Test: INFLUENZA A RAPID SCR by ICA; Value: INFLUENZA A RESULTS NEGATIVE; Status: F Test: INFLUENZA A RAPID SCR by ICA; Value: Comments:; Status: F Test: INFLUENZA B RAPID SCR by ICA; Value: INFLUENZA B RESULTS NEGATIVE; Status: F Test Note: ; The Influenza test is a direct rapid immunoassay for the qualitative detection of Influenza viral antigen. Cell culture (Viral Culture) testing should be considered to confirm NEGATIVE results and to assist in detecting other viruses that can provide similar clinical symptoms. Please contact the lab within 24 hours ([phone]) if confirmatory testing is desired. Lab Order: Monoscreen; SPEC'M 05/24/16 14:14 Test: MONO SCRN; Value: NEGATIVE; Range: NEGATIVE; Status: F Lab Order: BNP; SPEC'M 05/24/16 14:14 Test: BRAIN NATRIURETIC PEPTIDE; Value: 112; Range: <100; Abnormal: Above high normal; Units: PG/ML; Status: F Lab Order: CBC with Diff; SPEC'M 05/24/16 14:14 Test: WHITE BLOOD COUNT; Value: 9.5; Range: 4.0-10.0; Units: K/mm3; Status: F Test: RED BLOOD COUNT; Value: 3.96; Range: 4.00-5.40; Abnormal: Below low normal; Units: M/mm3; Status: F Test: HEMOGLOBIN; Value: 12.3; Range: 12.0-16.0; Units: g/dl; Status: F Test: HEMATOCRIT; Value: 35.6; Range: 36.0-47.0; Abnormal: Below low normal; Units: %; Status: F Test: MEAN CORPUSCULAR VOLUME; Value: 89.9; Range: 80.0-96.0; Units: fl; Status: F Test: MEAN CORPUSCULAR HEMOGLOBIN; Value: 31.0; Range: 27.0-33.0; Units: pg; Status: F Test: MEAN CORPUSCULAR HGB CONC; Value: 34.5; Range: 32.0-36.5; Units: g/dl; Status: F Test: RED CELL DISTRIBUTION WIDTH; Value: 12.5; Range: 11.5-14.5; Units: %; Status: F Test: PLATELET COUNT, AUTOMATED; Value: 365; Range: 150-450; Units: k/mm3; Status: F Test: NEUTROPHILS %; Value: 84.8; Range: 36.0-66.0; Abnormal: Above high normal; Units: %; Status: F Test: LYMPH %; Value: 7.9; Range: 24.0-44.0; Abnormal: Below low normal; Units: %; Status: F Test: MONO %; Value: 5.2; Range: 0.0-5.0; Abnormal: Above high normal; Units: %; Status: F Test: EOS %; Value: 1.2; Range: 0.0-3.0; Units: %; Status: F Test: BASO %; Value: 0.2; Range: 0.0-1.0; Units: %; Status: F Test: LARGE UNSTAINED CELL %; Value: 0.6; Range: 0.0-4.0; Units: %; Status: F Test: NEUTROPHILS #; Value: 8.1; Range: 1.8-7.7; Abnormal: Above high normal; Units: K/mm3; Status: F Test: LYMPH #; Value: 0.8; Range: 1.5-4.5; Abnormal: Below low normal; Units: K/mm3; Status: F Test: MONO #; Value: 0.5; Range: 0.0-0.8; Units: K/mm3; Status: F Test: EOS #; Value: 0.1; Range: 0.0-0.50; Units: K/mm3; Status: F Test: BASO #; Value: 0.0; Range: 0.0-0.2; Units: K/mm3; Status: F Test: LARGE UNSTAINED CELL #; Value: 0.1; Range: 0.0-0.4; Units: K/mm3; Status: F Lab Order: Complete Comphrensive Metabolic; SPEC'M 05/24/16 14:14 Test: GLUCOSE, FASTING; Value: 107; Range: 83-110; Units: MG/DL; Status: F Test: BLOOD UREA NITROGEN; Value: 20; Range: 7-18; Abnormal: Above high normal; Units: MG/DL; Status: F Test: CREATININE FOR GFR; Value: 0.71; Range: 0.55-1.02; Units: MG/DL; Status: F Test: SODIUM LEVEL; Range: 136-145; Units: MEQ/L; Status: I Test: POTASSIUM SERUM; Range: 3.5-5.1; Units: MEQ/L; Status: I Test: CHLORIDE LEVEL; Range: 98-107; Units: MEQ/L; Status: I Test: CARBON DIOXIDE LEVEL; Range: 21-32; Units: MEQ/L; Status: I Test: ANION GAP; Range: 8-16; Units: MEQ/L; Status: I Test: CALCIUM LEVEL; Range: 8.8-10.2; Units: MG/DL; Status: I Test: AST/SGOT; Range: 15-37; Units: U/L; Status: I Test: ALT/SGPT; Range: 12-78; Units: U/L; Status: I Test: ALKALINE PHOSPHATASE; Range: 45-117; Units: U/L; Status: I Test: BILIRUBIN,TOTAL; Range: 0.2-1.0; Units: MG/DL; Status: I Test: TOTAL PROTEIN; Range: 6.4-8.2; Units: GM/DL; Status: I Test: ALBUMIN; Range: 3.2-5.2; Units: GM/DL; Status: I Test: ALBUMIN/GLOBULIN RATIO; Range: 1.00-1.93; Status: I Test: GLOMERULAR FILTRATION RATE; Value: > 60.0; Range: >32; Status: F Test: SODIUM LEVEL; Value: 137; Range: 136-145; Units: MEQ/L; Status: F Test: POTASSIUM SERUM; Value: 4.2; Range: 3.5-5.1; Units: MEQ/L; Status: F Test: CHLORIDE LEVEL; Value: 102; Range: 98-107; Units: MEQ/L; Status: F Test: CARBON DIOXIDE LEVEL; Value: 25; Range: 21-32; Units: MEQ/L; Status: F Test: ANION GAP; Value: 10; Range: 8-16; Units: MEQ/L; Status: F Test: CALCIUM LEVEL; Value: 9.1; Range: 8.8-10.2; Units: MG/DL; Status: F Test: AST/SGOT; Value: 18; Range: 15-37; Units: U/L; Status: F Test: ALT/SGPT; Value: 14; Range: 12-78; Units: U/L; Status: F Test: ALKALINE PHOSPHATASE; Value: 94; Range: 45-117; Units: U/L; Status: F Test: BILIRUBIN,TOTAL; Value: 0.6; Range: 0.2-1.0; Units: MG/DL; Status: F Test: TOTAL PROTEIN; Value: 7.0; Range: 6.4-8.2; Units: GM/DL; Status: F Test: ALBUMIN; Value: 3.3; Range: 3.2-5.2; Units: GM/DL; Status: F Test: ALBUMIN/GLOBULIN RATIO; Value: 0.89; Range: 1.00-1.93; Abnormal: Below low normal; Status: F Test Note: ; Units are mL/min/1.73 m2 Chronic Kidney Disease Staging per NKF: Stage I & II GFR >=60 Normal to Mildly Decreased Stage III GFR 30-59 Moderately Decreased Stage IV GFR 15-29 Severely Decreased Stage V GFR <15 Very Little GFR Left ESRD GFR <15 on TURNER MACHINE Lab Order: Cardiac Injury Profile; SPEC'05/24/16 14:14 Test: CPK CREATINE PHOSPHOKINASE; Value: 35; Range: 26-192; Units: U/L; Status: F Test: CK-MB VALUE MASS; Value: 1.0; Range: 0.0-3.6; Units: NG/ML; Status: F Test: MB/CK RELATIVE INDEX; Value: 2.85; Range: < OR =4; Status: F Test Note: ; DIAGNOSIS CRITERIA MMB ng/ml Relative Index (RI) NON-AMI < or = 5 N/A LANZA ZONE > 5 < or = 4 AMI > 5 > 4 Lab Order: Troponin; SPEC'M 05/24/16 14:14 Test: TROPONIN I; Value: < 0.02; Range: < 0.10; Units: NG/ML; Status: F Test Note: ; Troponin I Reference Interval for [employer] LOCI: 99th Percentile= 0.00-0.045 ng/ml Risk Stratification: <= 0.10 ng/ml Decreased Risk for Adverse Clinical Events. 0.10-1.50 ng/ml Increased Risk for Adverse Clinical Events. Evaluation of additional criterion and/or repeat testing in 2-6 hours is suggested to rule out myocardial damage. >= 1.50 ng/ml Indicative of Myocardial Injury. Lab Order: GATS(NEG STREP SCREEN) ED ONLY; SPEC'M 05/24/16 13:51 Test: GATS CULTURE (NEG STREP SCR); Value: GATS RESULT NEGATIVE FOR STREP PYOGENES (GROUP A); Status: F Test: GATS CULTURE (NEG STREP SCR); Value: <EXTERNAL COMMENT eCWMed> FULL REPORT IN LAB NOTES (eCW and Medent).; Status: F Radiology Order: Chest, 2 View (pa\E\lat) Test: Chest, 2 View (pa\E\lat) REASON FOR EXAMINATION: Cough;Chest Pain; Clinical: Chest pain and cough.; ; Technique: PA and lateral.; ; Comparison: 04/30/2016.; ; Findings:; 5 cm right lower lobe mass lesion and bilateral hilar adenopathy (right greater; than left) is again appreciated. Underlying chronic interstitial changes noted.; No effusion. No pneumothorax. Cardiac silhouette is normal. Skeletal; structures demonstrate age-related changes.; ; Impression:; 5 cm right lower lobe mass and hilar adenopathy.; ; ; Signed by; Bhavesh Dillard MD 05/24/2016 02:40 P; Radiology Order: EKG-ADULT Test: EKG-ADULT REASON FOR EXAMINATION: Chest Pain; Stationary ECG Study; [facility] - ED; ; Test Date: 2016-05-24; Pat Name: TAWNY SANDOVAL Department:; Room: -; Gender: F Eyelet Maker: ct; : 1935 Requested By: Kelle Lockhart PA-C; Order Number: [id number] Reading MD: Janice Garcia; Measurements; Intervals [place]; Rate: 122 P: 57; TN: 161 QRS: 23; QRSD: 85 T: 60; QT: 306; QTc: 437; Interpretive Statements; SINUS TACHYCARDIA WITH FREQUENT VENTRICULAR PREMATURE COMPLEXES; POSSIBLE RIGHT VENTRICULAR CONDUCTION DELAY; ABNORMAL RHYTHM ECG; NO PRIOR FOR COMPARISON; Electronically Signed On 05-24-2016 19:49:11 EST by Janice Garcia; Radiology Order: CT Chest Angio R/O PE Test: CT Chest Angio R/O PE REASON FOR EXAMINATION: Chest Pain; Clinical: Acute chest pain.; ; Comparison: 05/12/2016.; ; Technique: Axial contrast enhanced images from the thoracic inlet to the upper; abdomen using 100 ml Isovue 370 intravenous contrast material with coronal and; sagittal re-formations.; ; Findings:; Satisfactory enhancement of the pulmonary vasculature is achieved and no filling; defects are identified to suggest pulmonary embolus.; ; Marked mediastinal and right hilar adenopathy with conglomerate lymph nodes at; the level of the subcarinal space measuring greater than 4.5 cm AP diameter; appears to have increased since the prior examination. Heterogeneous; multilobulated right lower lobe neoplasm is essentially unchanged. 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 Chronic interstitial; changes including scattered bullae and bronchiectasis noted bilaterally. Heart; and pericardium are stable. Atherosclerotic changes to the coronary arteries and; thoracic aorta noted without aneurysm. No obvious pericardial effusion.; ; Limited evaluation of the upper abdomen demonstrates innumerable hepatic; hypodensities which are otherwise nonspecific and similar to prior examination.; The bilateral adrenal glands are grossly unremarkable. Osseous structures; demonstrate degenerative changes.; ; ; Impression:; No evidence for pulmonary embolus.; Severe mediastinal and right hilar adenopathy with multinodular right lower lobe; lung mass.; Chronic emphysematous and interstitial changes with bronchiectasis.; Nonspecific hepatic hypodensities.; ; ; Signed by; Bhavesh Dillard MD 05/24/2016 04:45 P; Outcome: 17:48 Discharge ordered by Provider. ef1 17:59 Discharge Assessment: Patient awake, alert and oriented x 3. No cognitive and/or dls functional deficits noted. Patient verbalized understanding of disposition instructions. patient administered narcotics - no. The following High Risk Discharge criteria are identified: None. Discharged to home ambulatory, with significant other. Condition: stable. Discharge instructions given to patient, Instructed on discharge instructions, follow up and referral plans. medication usage, Demonstrated understanding of instructions, medications, Pt was receptive of discharge instructions/ teaching. Prescriptions given X 2. CT Study completed. Property sent home with patient. 18:01 Patient left the ED. dls Signatures: Dispatcher [employer] EDMS Cathie Cm, RN RN dls Willie Grier, Reg Reg lg Megan Hamilton,RN RN kr3 Kelle Lockhart, PA-C PA-C ef1 Kiana AlmanzarRN RN ld5 Rodas, Sara, COTTON BROKER COTTON BROKER ct3 Larissa ChavezRN RN dsf Codi Boucher gr2 Iam ThompsonRN RN mb9 Melissa Morales, Reg Reg ks16 Carolyn Alcala Nicole nb2 Chart Complete MTDD
--- NOTE | 2016-05-26 19:02 | EDDOCDS ---
Physician Documentation [facility] Name: Kasia Snadoval Age: 81 yrs Sex: Female : 1935 Arrival Date: 05/24/2016 Time: 12:24 Bed I4 / M4 Private MD: Warren Marx MD Disposition: 05/24/16 17:48 Discharged to Home/Self Care. Impression: Acute sinusitis, Other disorders of lung - Right Lower Lobe Lung Mass on CT and CXR, Bronchiectasis, Atherosclerosis - Coronary arteries and thoracic aorta on CT, Nausea and vomiting, Emphysema - Chronic. - Condition is Stable. - Discharge Instructions: Sinusitis, Adult, Bronchiectasis. - Prescriptions for Augmentin 875- 125 mg Oral Tablet - take 1 tablet by ORAL route every 12 hours for 10 days; 20 tablet. ZOFRAN ODT 4 mg - dissolve 1 tablet by ORAL route 4 times per day As needed do not chew, do not swallow whole; 10 tablet. - Medication Reconciliation, Local Pharmacy Hours form. - Follow up: Warren Marx; When: 1 - 2 days; Reason: Recheck today's complaints, Continuance of care. Follow up: Emergency Department; Reason: Worsening of conditions. Follow up: Keo Villavicencio; When: Call to arrange an appointment; Reason: Further diagnostic work-up, Recheck today's complaints, Continuance of care. Follow up: Nat Marin; When: Call to arrange an appointment; Reason: Further diagnostic work-up, Recheck today's complaints, Continuance of care. - Problem is new. - Symptoms have improved. Historical: - Allergies: Levaquin (Hives); - Home Meds: 1. levothyroxine 75 mcg Oral cap 1 cap once daily (Last dose: 05/24/2016 09:00) 2. bupropion HCl 100 mg Oral TbER 1 tab once daily (Last dose: 05/24/2016 09:00) 3. Vitamin D Oral 50,000 unit every other week 4. Ambien 5 mg Oral tab 1 tab once daily (Last dose: 05/23/2016) - PMHx: Hypothyroidism; - PSHx: none; - Social history: Smoking status: Patient states former smoker of tobacco. No barriers to communication noted, The patient speaks fluent Omani, Speaks appropriately for age. - Family history: Not pertinent. - : The pt / caregiver states he / she is not on anticoagulants. Home medication list is obtained from the patient. - Exposure Risk Screening:: None identified. Vital Signs: 05/24 12:26 BP 142 / 73; Pulse 99; Resp 18 S; Temp 97.8(O); Pulse Ox 98% on R/A; Weight 65.77 kg / gr2 145 lbs (R); Height 5 ft. 6 in. (167.64 cm) (R); Pain 5/10; 15:30 BP 160 / 88 LA (man/); Pulse 98; Resp 18; Temp 97.8(O); Pulse Ox 98% on R/A; ld5 17:04 Pulse 102; Pulse Ox 97% on R/A; mb9 17:33 BP 167 / 82; Pulse 126; Resp 18; Temp 98.3(O); Pulse Ox 95% on R/A; Pain 0/10; nb2 12:26 Body Mass Index 23.40 (65.77 kg, 167.64 cm) gr2 MDM: 12:56 [facility] Payment Agreement was scanned into [employer] and attached to record. ks16 13:45 Financial registration complete. ks16 13:46 Obtain sample by nasopharyngeal swab ordered. ef1 13:47 Monoscreen Ordered. EDMS 13:47 BNP Ordered. EDMS 13:47 CBC with Diff Ordered. EDMS 13:47 Complete Comphrensive Metabolic Ordered. EDMS 13:47 Cardiac Injury Profile Ordered. EDMS 13:47 Troponin Ordered. EDMS 13:47 Strep Screen-in lab Ordered. EDMS 13:48 -Influenza A&B Rapid Antigen - Nose Ordered. EDMS 13:48 Chest, 2 View (pa\E\lat) Ordered. EDMS 13:48 ECG WITH READING ER PHYS+CARDIAG ordered. EDMS 13:49 IV Saline Lock ordered. ef1 13:49 Ondansetron 4 mg IVP once ordered. ef1 14:03 NS 0.9% 500 ml IV at bolus once ordered. ef1 14:19 Pulse ox continuous ordered. ef1 14:23 GATS(NEG STREP SCREEN) ED ONLY Ordered. EDMS 14:51 BNP Reviewed. ef1 14:51 CBC with Diff Reviewed. ef1 14:51 Complete Comphrensive Metabolic Reviewed. ef1 14:51 Strep Screen-in lab Reviewed. ef1 14:51 -Influenza A&B Rapid Antigen - Nose Reviewed. ef1 14:51 Monoscreen Reviewed. ef1 14:51 Cardiac Injury Profile Reviewed. ef1 14:51 Troponin Reviewed. ef1 14:53 Recheck Vital Signs, perform reassessment and enter into [employer] ordered. ef1 14:54 CT Chest Angio R/O PE Ordered. EDMS 15:31 morphine 4 mg IVP once ordered. ef1 15:32 Ondansetron 2 mg IVP once ordered. ef1 17:44 Amoxicillin-Clavulanate 875 mg 1 tabs PO once ordered. ef1 20:25 T-Sheet-- Draft Copy was scanned into [employer] and attached to record. klr 05/26 11:17 ECG/EKG was scanned into [employer] and attached to record. lg 11:18 Radiology Report was scanned into [employer] and attached to record. lg Administered Medications: 05/24 14:17 Drug: Ondansetron 4 mg [ondansetron HCl 2 mg/mL intravenous solution (2 mL)] Route: mb9 IVP; Site: right antecubital; 14:17 Drug: NS 0.9% 500 ml [sodium chloride 0.9 % intravenous solution] Route: IV; Rate: mb9 bolus; Site: right antecubital; 15:31 Follow up: IV Status: Completed infusion; IV Intake: 500ml ld5 15:42 Drug: Ondansetron 2 mg [ondansetron HCl 2 mg/mL intravenous solution (1 mL)] Route: ld5 IVP; Site: right antecubital; 15:43 Drug: morphine 4 mg [morphine 4 mg/mL intravenous cartridge (1 mL)] Route: IVP; Site: ld5 right antecubital; 17:59 Drug: Amoxicillin-Clavulanate 1 tabs [amoxicillin 875 mg-potassium clavulanate 125 mg dls tablet (1 tabs)] Route: PO; Signatures: Dispatcher [employer] EDMS Cathie Cm, HONEY MÉNDEZ dls Willie Grier, Reg Reg lg Kelle Lockhart, PABogdanC PABogdanC ef1 Larissa Chavez RN RN dsf Sorenson, Kimberly, Reg Reg ks16 Carolyn Alcala Laura RN ld5 Iam Thompson RN mb9 The chart was reviewed and I authenticate all verbal orders and agree with the evaluation and treatment provided.Attachments: 12:56 [facility] Payment Agreement ks16 20:25 T-Sheet-- Draft Copy r 05/26 11:17 ECG/EKG lg Chart Complete MTDD
== END 2016-05-24 18:01 | disposition home or self-care (01) ==
LOC: M ED 12:24
DX: J01.90 Acute sinusitis, unspecified (principal); J43.9 Emphysema, unspecified; J47.9 Bronchiectasis, uncomplicated; I70.90 Unspecified atherosclerosis; R91.8 Other nonspecific abnormal finding of lung field; E03.9 Hypothyroidism, unspecified; Z79.899 Other long term (current) drug therapy; Z88.1 Allergy status to other antibiotic agents; Z87.891 Personal history of nicotine dependence

== ENCOUNTER 2016-05-26 11:20 | Inpatient (IN) | payer MEDICARE, BC, OTHER ==
[~2016-05-26] VITALS: Ht 167.6 cm; Wt 61.5 kg
[2016-05-26] MEDS ORDERED: METOPROLOL 5 MG/5 ML VIAL As Ordered ONE (11:52)
[2016-05-26 12:05] LABS: BASO % 0.1 % (0.0-1.0); EOS # 0.1 K/mm3 (0.0-0.50); EOS % 0.8 % (0.0-3.0); LARGE UNSTAINED CELL # 0.1 K/mm3 (0.0-0.4); LARGE UNSTAINED CELL % 0.9 % (0.0-4.0); LYMPH # 0.9 K/mm3 (1.5-4.5); LYMPH % 6.1 % (24.0-44.0); MEAN CORPUSCULAR HEMOGLOBIN 30.8 pg (27.0-33.0); MEAN CORPUSCULAR HGB CONC 33.8 g/dl (32.0-36.5); MEAN CORPUSCULAR VOLUME 91.2 fl (80.0-96.0); MONO # 0.7 K/mm3 (0.0-0.8); MONO % 5.5 % (0.0-5.0); NEUTROPHILS % 86.6 % (36.0-66.0); PLATELET COUNT, AUTOMATED 463 k/mm3 (150-450); RED CELL DISTRIBUTION WIDTH 12.6 % (11.5-14.5); WHITE BLOOD COUNT 12.7 K/mm3 (4.0-10.0)
[2016-05-26] MEDS ORDERED: ONDANSETRON 4MG/2ML VIAL (J2405) As Ordered ONE (12:09)
[2016-05-26] MEDS ORDERED: DRIS50002 PO (12:10)
[2016-05-26] MEDS ORDERED: ALEV220T26 PO (12:10)
[2016-05-26] MEDS ORDERED: OCUVTAB PO (12:10)
[2016-05-26] MEDS ORDERED: RANI150T PO (12:10)
[2016-05-26] MEDS ORDERED: BUPR100T3 PO (12:10)
[2016-05-26] MEDS ORDERED: LEVO75TA4 PO (12:10)
[2016-05-26] MEDS ORDERED: CALC600T10 PO (12:10)
[2016-05-26] MEDS ORDERED: AMBI5TAB PO (12:10)
--- NOTE | 2016-05-26 12:13 | REP ---
Clinical: Tachycardia. Technique: Portable examination. Comparison: 05/24/2016. Findings: Hilar adenopathy and right lower lobe mass with associated right lower lobe infiltrates similar to prior examination. Mediastinum and cardiac silhouette stable with mild cardiomegaly again suggested. No pneumothorax. Skeletal structures intact. Impression: Hilar adenopathy and right lower lobe mass with right lower lobe consolidation. Signed by Bhavesh Dillard MD 05/26/2016 12:05 P
[2016-05-26 12:28] LABS: ANION GAP 11 MEQ/L (8-16); BLOOD UREA NITROGEN 29 MG/DL (7-18); CALCIUM LEVEL 9.7 MG/DL (8.8-10.2); CARBON DIOXIDE LEVEL 25 MEQ/L (21-32); CHLORIDE LEVEL 99 MEQ/L (98-107); CREATININE FOR GFR 0.78 MG/DL (0.55-1.02); GLOMERULAR FILTRATION RATE > 60.0 (>32); GLUCOSE, FASTING 141 MG/DL (83-110); MAGNESIUM LEVEL 2.1 MG/DL (1.8-2.4); POTASSIUM SERUM 4.1 MEQ/L (3.5-5.1); SODIUM LEVEL 135 MEQ/L (136-145); T UPTAKE 37 % (30-39); THYROXINE (T4) 9.2 UG/DL (4.5-12.0)
[2016-05-26] MEDS ORDERED: METOPROLOL TART 25 MG TABLET As Ordered ONE (12:35)
[2016-05-26] MEDS ORDERED: cefTRIAXone SOD 1 GM VIAL (J0696) As Ordered ONE (12:46)
--- NOTE | 2016-05-26 14:21 | HPEPDOC ---
Medical History and Physical Date of Admission 05/26/16 History and Physical PRIMARY CARE PROVIDER: Dr. Roland ATTENDING: Speedy Renteria MD CHIEF COMPLAINT: Cough/generalized weakness HISTORY OF PRESENT ILLNESS: This is a 52-year-old female past history of hypothyroidism, GERD, anxiety or presents complaining of shortness of breath, cough, generalized weakness. Patient presented to the ED on May 24, found to have a lung mass and postobstructive pneumonia, given Augmentin however the patient has not started antibiotics yet. Patient wanted to go home at the time and follow-up for this lung mass. The patient presents now with generalized weakness, shortness of breath, productive cough, that is blood-tinged. Patient was also found to be in atrial flutter with a heart rate in the 170s. She's received a few doses of metoprolol in the ED. PAST MEDICAL HISTORY:As per HPI PAST SURGICAL HISTORY:Tubal Ligation SOCIAL HISTORY: History of 1 pack per day 58 years however quit a few years ago , drinks 2-3 times a week, last drink 2 weeks ago, no illicit drug use. Lives with . FAMILY HISTORY: Both parents with TB ALLERGIES: Please see below. REVIEW OF SYSTEMS: HEENT: Denies sore throat/headache CARDIOVASCULAR: Denies chest pain/palpitations RESPIRATORY: + shortness of breath/cough GASTROINTESTINAL: denies nausea/vomiting GENITOURINARY: Denies dysuria/urinary urgency. MUSCULOSKELETAL: Denies myalgias/arthralgias NEUROLOGICAL: Denies any focal weakness Rest of ROS negative. HOME MEDICATIONS: Please see below. PHYSICAL EXAMINATION: VITAL SIGNS: (see Below) Vitals: (see below) General: No acute distress, laying comfortably in bed. HEENT: Moist mucous membranes. Neck: No JVD. Left supraclavicular 1/2cm tender lymphadenopathy. Cardiac: RRR, No murmurs Pulm: Coarse crackle rightr base. Minimal exp. wheezing. No rhonchi Abd: NT/ND + BS Ext: No edema or cyanosis LABORATORY DATA: See below. IMAGING: CXR 05/26/16 Impression: Hilar adenopathy and right lower lobe mass with right lower lobe consolidation. CTA Chest 05/24/16 Impression: No evidence for pulmonary embolus. Severe mediastinal and right hilar adenopathy with multinodular right lower lobe lung mass. Chronic emphysematous and interstitial changes with bronchiectasis. Nonspecific hepatic hypodensities. CT Chest 05/12/16 IMPRESSION: 1. There are two masses in the right lower lobe, one in the lateral basal segment 5.5 cm subpleural and the other in the medial basal segment also posteriorly lower lobe on the right with maximum diameter of 5.5 x 4 cm. No effusions. No satellite nodules. Some underlying cylindrical bronchiectasis and right hilar, subcarinal, precarinal, AP window and prevascular space pathologic sized adenopathy. No visible bony metastatic disease or other significant finding. Upper abdomen intact. MICROBIOLOGY: Please see below. ASSESSMENT/PLAN: 1. New onset atrial flutter with rapid ventricular response- may be related to underlying lung function. status post metoprolol in the ED; given underlying COPD will start patient on cardizem po and IV. We'll also start Lovenox pending insurance coverage of novel anticoagulant. Trend cardiac enzymes, check TSH, echocardiogram. 2. Postobstructive pneumonia- we'll start patient on vancomycin and Zosyn pending cultures. IV fluids. 3. Large lung mass- all need an inpatient versus outpatient biopsy after patient 's heart rate is more stable. 4. Hypothyroidism- continue levothyroxine 5. Anxiety- continue bupropion 6. History of diverticulosis and diverticulitis DVT prophy: Enoxaparin DNR/DNI Pt will be followed by Dr. Benny Mandujano's group starting 05/27/16 at 7am. Vital Signs BP 112/79, HR 164, RR 16, O2 sat 98% RA, Afebrile. Laboratory Data Labs 24H Laboratory Tests 2 05/26/16 11:43: Anion Gap 11, B-Type Natriuretic Peptide 431H, White Blood Count 12.7H, Red Blood Count 4.16, Hemoglobin 12.8, Hematocrit 37.9, Mean Corpuscular Volume 91.2 , Mean Corpuscular Hemoglobin 30.8, Mean Corpuscular Hemoglobin Concent 33.8, Red Cell Distribution Width 12.6, Platelet Count 463H, Neutrophils (%) (Auto) 86.6H, Lymphocytes (%) (Auto) 6.1L, Monocytes (%) (Auto) 5.5H, Eosinophils (%) ( Auto) 0.8, Basophils (%) (Auto) 0.1, Neutrophils # (Auto) 11.0H, Lymphocytes # ( Auto) 0.9L, Monocytes # (Auto) 0.7, Eosinophils # (Auto) 0.1, Basophils # (Auto ) 0.0, Blood Urea Nitrogen 29H, Creatinine 0.78, Sodium Level 135L, Potassium Level 4.1, Chloride Level 99, Carbon Dioxide Level 25, Calcium Level 9.7, Total Creatine Kinase 28, Creatine Kinase MB 1.0, Creatine Kinase MB Relative Index 3.57, Free Thyroxine Index 3.4, Glomerular Filtration Rate > 60.0, Lactic Acid ( Sepsis) 2.1*H, Large Unclassified Cells # 0.1, Large Unclassified Cells % 0.9, Magnesium Level 2.1, Thyroid Stimulating Hormone (TSH) 1.640, Thyroxine (T4) 9.2 , Triiodothyronine (T3) Uptake 37, Troponin I 0.02 CBC/BMP Laboratory Tests 05/26/16 11:43 Calcium Level 9.7, Total Creatine Kinase 28, Red Blood Count 4.16, Mean Corpuscular Volume 91.2, Mean Corpuscular Hemoglobin 30.8, Mean Corpuscular Hemoglobin Concent 33.8, Red Cell Distribution Width 12.6, Neutrophils (%) (Auto ) 86.6 H, Lymphocytes (%) (Auto) 6.1 L, Monocytes (%) (Auto) 5.5 H, Eosinophils (%) (Auto) 0.8, Basophils (%) (Auto) 0.1, Neutrophils # (Auto) 11.0 H, Lymphocytes # (Auto) 0.9 L, Monocytes # (Auto) 0.7, Eosinophils # (Auto) 0.1, Basophils # (Auto) 0.0 Microbiology Microbiology 05/26/16 Blood Culture, Received Pending 05/26/16 Blood Culture, Received Pending 05/26/16 Respiratory Virus Panel (PCR) (ISELA) - Final, Complete Home Medications Scheduled (Bupropion HCl Sr) 100 Mg Tab 100 MG PO DAILY Calcium (Calcium) 600 Mg Tab 600 MG PO DAILY Levothyroxine Sodium (Synthroid) 75 Mcg Tab 75 MCG PO QAM Multivitamins (Ocuvite) 1 Tab Tab 1 TAB PO Q2WK Ranitidine HCl (Ranitidine HCl) 150 Mg Tab 1 TAB PO BID Vitamin D (Drisdol) 50,000 Unit Cap 50,000 UNIT PO Q2WK EVERY OTHER THURSDAY Zolpidem Tartrate (Ambien) 5 Mg Tab 5 MG PO QHS Scheduled PRN Naproxen Sodium (Aleve) 220 Mg Tab 220 MG PO DAILY PRN PRN PAIN Allergies Coded Allergies: Quinolones (Unverified Allergy, Unknown, HIVES, 07/12/12) SPEEDY RENTERIA MD May 26, 2016 14:21
--- NOTE | 2016-05-26 15:46 | PHACANCOPD ---
PHARMACY VANCOMYCIN DOSING Pt Demographics Demographics Patient Age:81 , Weight: , Gender: female Adjusted Body Weight Date: 05/26/16, Adjusted Body Weight: [68.04] Kg Events Past 24 Hours Events Past 24 Hours: NO: Change in CrCl, Dialysis, Diuretic Therapy, Elevation in WBC, Fever, Other, Pending Diagnostics, Pending Procedures Vancomycin Vancomycin indication: POST-OBSTRUCTIVE PNA Vancomycin Target Ranges: 15-20 mcg/ml Vancomycin Load Y/N: Yes Load Dose Date Time Vancomycin Load Dose: 1.5g Date: 05/26/16 Time: 1600 Vancomycin Dose Date: 05/26/16. Current Vancomycin Dose: [1g q12h] Intermittent Dosing?: No Labs Labs Item Value Date Time White Blood Count 12.7 K/mm3 H 05/26/16 1143 Creatinine 0.78 MG/DL 05/26/16 1143 Micro Microbiology 05/26/16 Blood Culture, Received Pending 05/26/16 Blood Culture, Received Pending 05/26/16 Respiratory Virus Panel (PCR) (ISELA) - Final, Complete Creatinine Clearance Date:05/26/16. Creatinine Clearance: [54.61ml/min.]. Pending Labs Blood Culture Assessment and Plan Maintaining Current Dose?: Yes Reason for dose change: No Dose Change Pharmacist Note Pharmacist Note Date: 05/26/16. Pharmacist note: PT is an 81 year old female who is presenting with post-obstructive pna to be treated with vanco pending microbiology, target trough 15-20mcg/ml. Pt has not been treated with vancomycin at [facility] in the past. To achieve her target trough a loading dose of 1.5g was given at 6pm maintenance therapy will consist of 1g q12h. We will continue to monitor and adjust dose as needed. SAUL MURPHY PHARMAC[facility] May 26, 2016 15:46
[2016-05-26] MEDS ORDERED: VANCOMYCIN 1000 MG/20 ML VIAL (J3370) As Ordered ONE (16:47)
[2016-05-26] MEDS ORDERED: VANCOMYCIN HCL 500 MG in D5W MINI-BAG PLUS 100 ML IV ONE (17:00)
[2016-05-26 17:40] VITALS: BP 127/74
[2016-05-26] MEDS ORDERED: PIPERACILLIN/TAZOBACTAM SOD 3.375 GM in D5W MINI-BAG PLUS 50 ML IV SCH (18:00)
[2016-05-26] MEDS ORDERED: VANCOMYCIN HCL 500 MG/10 ML VIAL (J3370) As Ordered ONE (18:00)
--- NOTE | 2016-05-26 18:33 | EDDOCDS ---
Physician Documentation [facility] Name: Kasia Sandoval Age: 81 yrs Sex: Female : 1935 Arrival Date: 05/26/2016 Time: 11:20 Bed 2 Private MD: Warren Marx MD Disposition: 05/26/16 13:26 Hospitalization ordered by Speedy Renteria for Inpatient Admission. 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 - Bed requested for PCU. - Status is Inpatient Admission. jmk - Condition is Stable. - Problem is new. - Symptoms are unchanged. Historical: - Allergies: Levaquin (Hives); - Home Meds: 1. Ambien 5 mg Oral tab 1 tab once daily (Last dose: Unknown) 2. bupropion HCl 100 mg Oral TbER 1 tab once daily (Last dose: Unknown) 3. levothyroxine 75 mcg Oral cap 1 cap once daily (Last dose: Unknown) 4. Vitamin D Oral 90512 unit every other week (Last dose: Unknown) - PMHx: Hypothyroidism; - PSHx: Tubal ligation; - Social history: Smoking status: Patient states was never smoker of tobacco. No barriers to communication noted, Speaks appropriately for age. - Family history: Not pertinent. - : The pt / caregiver states he / she is not on anticoagulants. Home medication list is obtained from the patient. - Exposure Risk Screening:: None identified. Vital Signs: 05/26 11:22 BP 139 / 80 RA Sitting (auto/reg); Pulse 176; Resp 20; Temp 97.2(O); Pulse Ox 97% ; jrd Weight 68.04 kg / 150 lbs; Height 5 ft. 6 in. (167.64 cm) (R); Pain 6/10; 12:00 BP 135 / 94 (auto/); jmk 12:00 Pulse 175 MON; Pulse Ox 99% ; jmk 12:07 BP 127 / 85 (auto/); jmk 12:07 Pulse 170 MON; Pulse Ox 98% ; jmk 12:12 BP 103 / 73 (auto/); jmk 12:12 Pulse 168 MON; Pulse Ox 98% ; jmk 12:15 BP 112 / 79 (auto/); jmk 12:15 Pulse 165 MON; Pulse Ox 98% ; jmk 14:15 BP 111 / 81 (auto/); jmk 14:15 Pulse 165 MON; Pulse Ox 98% ; jmk 14:30 BP 141 / 63 (auto/); jmk 14:30 Pulse 122 MON; Pulse Ox 99% ; jmk 14:45 BP 140 / 66 (auto/); jmk 14:45 Pulse 112 MON; Pulse Ox 99% ; jmk 15:00 BP 140 / 65 (auto/); jmk 15:00 Pulse 123 MON; Pulse Ox 99% ; jmk 15:14 Pulse 134 MON; Pulse Ox 99% ; jmk 15:15 BP 151 / 74 (auto/); Resp 16; jmk 15:29 Pulse 135 MON; Pulse Ox 98% ; jmk 15:30 BP 148 / 96 (auto/); jmk 15:45 BP 150 / 108 (auto/); jmk 15:45 Pulse 134 MON; Pulse Ox 99% ; jmk 17:25 BP 127 / 74 (auto/); jmk 17:25 Pulse 165 MON; Resp 16; jmk 18:30 BP 127 / 74; Pulse 118; Resp 18; Temp 98.5; Pulse Ox 98% on 3 lpm NC; jmk 11:22 Body Mass Index 24.21 (68.04 kg, 167.64 cm) jrd MDM: 11:34 Stone Sawyer/Pulse Ox/q 30 min VS ordered. ml6 11:34 Oxygen at 2L/min via NC ordered. ml6 11:34 IV Saline Lock ordered. ml6 11:34 Undress patient appropriately for examination ordered. ml6 11:34 ECG WITH READING ER PHYS+CARDIAG ordered. EDMS 11:35 BMP Ordered. EDMS 11:35 CBC with Diff Ordered. EDMS 11:35 CIP Ordered. EDMS 11:35 Troponin Ordered. EDMS 11:35 Chest, 1 View Ordered. EDMS 11:39 -Blood Culture (Adults Only), peripheral from different site, or from device/port/PICC sd1 etc. if present ordered. 11:39 Lactic Acid (Hooper tube on ice) Ordered. EDMS 11:39 Misc. Nursing Order ordered. sd1 11:39 Metoprolol 5 mg IVP every 5 minutes; Hold for SBP < 100 or HR < 60. x3 ordered. sd1 11:39 -Blood Culture Ordered. EDMS 11:41 BNP Ordered. EDMS 11:41 BED REQUEST+ADM ordered. EDMS 11:53 RESPIRATORY PANEL Ordered. EDMS 11:54 -Blood Culture (Adults Only), peripheral from different site, or from device/port/PICC mt4 etc. if present complete. 11:54 Metoprolol (Tartrate) 25 mg PO once ordered. sd1 11:55 BLOOD CULTURES Ordered. EDMS 12:00 MAGNESIUM LEVEL Ordered. EDMS 12:00 THYROID PROFILE Ordered. EDMS 12:06 Financial registration complete. lg 12:09 Ondansetron 4 mg IVP once ordered. sd1 12:20 [facility] Payment Agreement was scanned into [employer] and attached to record. lg 12:35 BMP Reviewed. sd1 12:35 CBC with Diff Reviewed. sd1 12:35 BNP Reviewed. sd1 12:35 Troponin Reviewed. sd1 12:35 MAGNESIUM LEVEL Reviewed. sd1 12:35 Chest, 1 View Reviewed. sd1 12:36 cefTRIAXone 1 grams IVPB once over 30 mins; dilute in 50mL of NS or D5W ordered. sd1 12:48 BMP Reviewed. sd1 12:48 Lactic Acid (Hooper tube on ice) Reviewed. sd1 12:48 CIP Reviewed. sd1 12:48 Troponin Reviewed. sd1 12:48 MAGNESIUM LEVEL Reviewed. sd1 12:48 THYROID PROFILE Reviewed. sd1 12:48 NS 0.9% 1000 ml IV at 150 mL/hr continuous ordered. sd1 13:56 Admission Orders was scanned into [employer] and attached to record. mt4 14:12 Admission / Observation Status ordered. EDMS 14:12 ECHOCARD,DOPPLER/COLOR FLOW ordered. EDMS 14:12 REGULAR DIET ordered. EDMS 14:12 CARDIAC INJURY PROFILE Ordered. EDMS 14:12 TROPONIN Ordered. EDMS 14:13 VENOUS BLOOD GAS Ordered. EDMS 14:20 Admission / Observation Status ordered. EDMS 15:31 URINE STREP PNEUMONIAE ANTIGEN Ordered. EDMS 15:31 LEGIONELLA ANTIGEN URINE Ordered. EDMS 15:31 SPUTUM CULTURE AND GRAM STAIN Ordered. EDMS 15:46 T-Sheet-- Draft Copy was scanned into [employer] and attached to record. gb 17:40 Diltiazem 10 mg IVP once; administer over 2 minutes ordered. jmk 17:42 NS 0.9% 500 ml IV at bolus once ordered. jmk 17:42 NS 0.9% 500 ml IV at bolus once ordered. [facility] Administered Medications: 12:00 Drug: Metoprolol 5 mg [metoprolol 5 mg/5 mL intravenous solution (5 mL)] Route: IVP; [facility] Site: left antecubital; 12:02 Drug: Metoprolol 5 mg [metoprolol 5 mg/5 mL intravenous solution (5 mL)] Route: IVP; [facility] Site: left antecubital; 12:11 Drug: Ondansetron 4 mg Route: IVP; Site: left antecubital; [facility] 12:17 Drug: Metoprolol 5 mg [metoprolol 5 mg/5 mL intravenous solution (5 mL)] Route: IVP; [facility] Site: left antecubital; 12:40 Drug: Metoprolol (Tartrate) 25 mg Route: PO; [facility] 12:56 Drug: cefTRIAXone 1 grams Route: IVPB; Infused Over: 30 mins; Site: left antecubital; [facility] 13:00 Drug: NS 0.9% 1000 ml Route: IV; Rate: 150 mL/hr; Site: left antecubital; [facility] 14:22 Drug: NS 0.9% 500 ml Route: IV; Rate: bolus; Site: left antecubital; [facility] 17:40 Drug: Diltiazem 10 mg [diltiazem 5 mg/mL intravenous solution (2 mL)] Route: IVP; Site: [facility] left antecubital; 17:42 Drug: NS 0.9% 500 ml Route: IV; Rate: bolus; Site: left antecubital; [facility] Signatures: Dispatcher [employer] EDMN Janice Garcia MD MD sd1 Brian Hooker,RN RN k Reena Moise, Reg Reg gb Marvel, Willie, Reg Reg lg Moi, Cami mt4 Anibal Heredia, RN RN ml6 Derek Duque RN RN mts The chart was reviewed and I authenticate all verbal orders and agree with the evaluation and treatment provided.Corrections: (The following items were deleted from the chart) 12:00 11:39 MAGNESIUM LEVEL+LAB ordered. EDMN EDMS 12:00 11:39 THYROID PROFILE+LAB ordered. EDMN EDMS 12:46 12:20 Misc Fixing Carpenter Order ordered. sd1 mt4 16:28 14:12 LACTIC ACID LEVEL, LACTATE ordered. EDMS EDMS Attachments: 12:20 [place] Payment Agreement lg 13:56 Admission Orders mt4 15:46 T-Sheet-- Draft Copy gb MTDD
--- NOTE | 2016-05-26 18:33 | EDDOCDS ---
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 Adult Sepsis ml6 Screening: The patient does not have new or worsening altered mentation. Patient's respiratory rate is less than 22. Systolic blood pressure is greater than 100. Patient has a qSOFA score of 0- Negative Sepsis Screen. Suicide/Homicide risk assessment- the patient denies having any suicidal and/or homicidal ideations and does not present with any other emotional, behavioral or mental health complaints. Status: Patient is not a health services rn or dependent. Transition of care: patient was not received from another setting of care. Red Flag criteria, patient assessed and taken directly to a bed. 11:22 Method Of Arrival: Walkin/Carried/Asstd ml6 11:22 Acuity: ILDA Level 2 ml6 Triage Assessment: 11:47 General: Appears in no apparent distress, Behavior is appropriate for age, cooperative. ml6 Pain: Denies pain. Neurological: No deficits noted. Level of Consciousness is awake, alert, Oriented to person, place, time. Cardiovascular: No deficits noted. Capillary refill < 3 seconds is brisk in bilateral fingers toes. Respiratory: No deficits noted. Airway is patent Respiratory effort is even, unlabored, Respiratory pattern is regular, symmetrical, Breath sounds are clear bilaterally. GI: Reports nausea, vomiting. Historical: - Allergies: Levaquin (Hives); - Home Meds: 1. Ambien 5 mg Oral tab 1 tab once daily (Last dose: Unknown) 2. bupropion HCl 100 mg Oral TbER 1 tab once daily (Last dose: Unknown) 3. levothyroxine 75 mcg Oral cap 1 cap once daily (Last dose: Unknown) 4. Vitamin D Oral 86032 unit every other week (Last dose: Unknown) - PMHx: Hypothyroidism; - PSHx: Tubal ligation; - Social history: Smoking status: Patient states was never smoker of tobacco. No barriers to communication noted, Speaks appropriately for age. - Family history: Not pertinent. - : The pt / caregiver states he / she is not on anticoagulants. Home medication list is obtained from the patient. - Exposure Risk Screening:: None identified. Screenin:00 Screening information is obtained from the patient. Fall risk: No risks identified. jmk Assistance ADL's: requires no assistance with activities of daily living. Abuse/DV Screen: The patient / caregiver reports he/she is: not in a situation that causes fear, pain or injury. Nutritional screening: No deficits noted. Advance Directives: Currently, there is a health care proxy, spouse, adriana. There is an active DNR order There is a living will, There is an active Power of Can Sterilizer, spouse, adriana. home support is adequate. Assessment: 12:27 General: Appears skin warm and dry color sliglty pale. conversing lengthy sentences jmk without resp interruption. chest CTA, no work of breathing noted. denies pain. reports sensation of fatigue with slightly full sensation to chest. Monitor is aflutter with RVR. lopressor administered with complaint of slight nausea with process. medicated as per order. . Cardiovascular: Capillary refill < 3 seconds Clubbing of nail beds is absent Heart tones S1 S2 present Edema is absent. Rhythm is atrial flutter Chest pain is denied. Respiratory: Airway is patent Respiratory effort is even, unlabored, Respiratory pattern is regular, Breath sounds are clear bilaterally. GI: Abdomen is flat, non- distended Bowel sounds present X 4 quads. 15:05 General: Appears monitor is a flutter with rate of 118. without pain. nausea is jmk resolved. + overall fatigue. No observed resp distress. 17:42 General: Appears without pain. fatigue is major concern. Monitor is sfib. rate 133. sl jmk intact. Vancomycin infusing. Vital Signs: 11:22 BP 139 / 80 RA Sitting (auto/reg); Pulse 176; Resp 20; Temp 97.2(O); Pulse Ox 97% ; jrd Weight 68.04 kg; Height 5 ft. 6 in. (167.64 cm) (R); Pain 6/10; 12:00 BP 135 / 94 (auto/); jmk 12:00 Pulse 175 MON; Pulse Ox 99% ; jmk 12:07 BP 127 / 85 (auto/); jmk 12:07 Pulse 170 MON; Pulse Ox 98% ; jmk 12:12 BP 103 / 73 (auto/); jmk 12:12 Pulse 168 MON; Pulse Ox 98% ; jmk 12:15 BP 112 / 79 (auto/); jmk 12:15 Pulse 165 MON; Pulse Ox 98% ; jmk 14:15 BP 111 / 81 (auto/); jmk 14:15 Pulse 165 MON; Pulse Ox 98% ; jmk 14:30 BP 141 / 63 (auto/); jmk 14:30 Pulse 122 MON; Pulse Ox 99% ; jmk 14:45 BP 140 / 66 (auto/); jmk 14:45 Pulse 112 MON; Pulse Ox 99% ; jmk 15:00 BP 140 / 65 (auto/); jmk 15:00 Pulse 123 MON; Pulse Ox 99% ; jmk 15:14 Pulse 134 MON; Pulse Ox 99% ; jmk 15:15 BP 151 / 74 (auto/); Resp 16; jmk 15:29 Pulse 135 MON; Pulse Ox 98% ; jmk 15:30 BP 148 / 96 (auto/); jmk 15:45 BP 150 / 108 (auto/); jmk 15:45 Pulse 134 MON; Pulse Ox 99% ; jmk 17:25 BP 127 / 74 (auto/); jmk 17:25 Pulse 165 MON; Resp 16; jmk 18:30 BP 127 / 74; Pulse 118; Resp 18; Temp 98.5; Pulse Ox 98% on 3 lpm NC; jmk 11:22 Body Mass Index 24.21 (68.04 kg, 167.64 cm) [facility] Vitals: 11:22 Log In Time: May 26, 2016 at 11:02. jrd 11:22 RN notified that patient meets Red Flag criteria. jrd ED Course: 11:22 Patient visited by Warren Mayes PCA. jrd 11:22 Warren Marx is Private Physician. jrd 11:22 Patient moved to Waiting jrd 11:24 Patient visited by Warren Mayes PCA. jrd 11:27 Patient moved to 2 jrd 11:30 Janice Garcia MD is Attending Physician. sd1 11:30 Patient visited by Janice Garcia MD. sd1 11:36 EKG done. (by ED staff). Reviewed by Janice Garcia MD. jml1 11:37 Patient visited by Andrew Sargent. jml1 11:44 Triage Initiated ml6 11:47 BNP Sent. jmk 11:47 Lactic Acid (Hooper tube on ice) Sent. jmk 11:47 -Blood Culture Sent. jmk 11:47 BMP Sent. jmk 11:47 CBC with Diff Sent. jmk 11:47 Troponin Sent. jmk 11:47 CIP Sent. jmk 12:00 The patient / caregiver is instructed regarding the plan of care and ED course. Cardiac jmk monitor on. Pulse ox on. 12:00 Inserted saline lock: 20 gauge in left antecubital area. jmk 12:20 [facility] Payment Agreement was scanned into [employer] and attached to record. lg 12:26 THYROID PROFILE Sent. jmk 12:26 MAGNESIUM LEVEL Sent. jmk 12:27 Chest, 1 View Returned. EDMS 13:18 Patient visited by Andrew Sargent. jml1 13:25 Speedy Renteria is Hospitalizing Provider. sd1 13:56 Admission Orders was scanned into [employer] and attached to record. mt4 15:46 T-Sheet-- Draft Copy was scanned into [employer] and attached to record. gb 17:02 Patient visited by Warren Mayes PCA. jrsteffen 17:43 Patient visited by Brian Hooker,HONEY. liz Administered Medications: 12:00 Drug: Metoprolol 5 mg [metoprolol 5 mg/5 mL intravenous solution (5 mL)] Route: IVP; dionicio Site: left antecubital; 12:02 Drug: Metoprolol 5 mg [metoprolol 5 mg/5 mL intravenous solution (5 mL)] Route: IVP; liz Site: left antecubital; 12:11 Drug: Ondansetron 4 mg Route: IVP; Site: left antecubital; k 12:17 Drug: Metoprolol 5 mg [metoprolol 5 mg/5 mL intravenous solution (5 mL)] Route: IVP; liz Site: left antecubital; 12:40 Drug: Metoprolol (Tartrate) 25 mg Route: PO; jmk 12:56 Drug: cefTRIAXone 1 grams Route: IVPB; Infused Over: 30 mins; Site: left antecubital; k 13:00 Drug: NS 0.9% 1000 ml Route: IV; Rate: 150 mL/hr; Site: left antecubital; k 14:22 Drug: NS 0.9% 500 ml Route: IV; Rate: bolus; Site: left antecubital; k 17:40 Drug: Diltiazem 10 mg [diltiazem 5 mg/mL intravenous solution (2 mL)] Route: IVP; Site: [facility] left antecubital; 17:42 Drug: NS 0.9% 500 ml Route: IV; Rate: bolus; Site: left antecubital; [facility] Intake: 17:49 IV: 1000.00ml (NS); Total: 1000.00ml. k 18:31 IV: 250.00ml (NS); Total: 1250.00ml. [facility] Order Results: Lab Order: [facility]; SPEC'M 05/26/16 11:43 Test: GLUCOSE, FASTING; Value: 141; Range: 83-110; Abnormal: Above high normal; Units: MG/DL; Status: F Test: BLOOD UREA NITROGEN; Value: 29; Range: 7-18; Abnormal: Above high normal; Units: MG/DL; Status: F Test: CREATININE FOR GFR; Value: 0.78; Range: 0.55-1.02; Units: MG/DL; Status: F Test: GLOMERULAR FILTRATION RATE; Value: > 60.0; Range: >32; Status: F Test: SODIUM LEVEL; Value: 135; Range: 136-145; Abnormal: Below low normal; Units: MEQ/L; Status: F Test: POTASSIUM SERUM; Value: 4.1; Range: 3.5-5.1; Units: MEQ/L; Status: F Test: CHLORIDE LEVEL; Value: 99; Range: 98-107; Units: MEQ/L; Status: F Test: CARBON DIOXIDE LEVEL; Value: 25; Range: 21-32; Units: MEQ/L; Status: F Test: ANION GAP; Value: 11; Range: 8-16; Units: MEQ/L; Status: F Test: CALCIUM LEVEL; Value: 9.7; Range: 8.8-10.2; Units: MG/DL; Status: F Test Note: ; Units are mL/min/1.73 m2 Chronic Kidney Disease Staging per NKF: Stage I & II GFR >=60 Normal to Mildly Decreased Stage III GFR 30-59 Moderately Decreased Stage IV GFR 15-29 Severely Decreased Stage V GFR <15 Very Little GFR Left ESRD GFR <15 on HAND EXPANSION ENVELOPE MAKER Lab Order: CBC with Diff; [facility] 05/26/16 11:43 Test: WHITE BLOOD COUNT; Value: 12.7; Range: 4.0-10.0; Abnormal: Above high normal; Units: K/mm3; Status: F Test: RED BLOOD COUNT; Value: 4.16; Range: 4.00-5.40; Units: M/mm3; Status: F Test: HEMOGLOBIN; Value: 12.8; Range: 12.0-16.0; Units: g/dl; Status: F Test: HEMATOCRIT; Value: 37.9; Range: 36.0-47.0; Units: %; Status: F Test: MEAN CORPUSCULAR VOLUME; Value: 91.2; Range: 80.0-96.0; Units: fl; Status: F Test: MEAN CORPUSCULAR HEMOGLOBIN; Value: 30.8; Range: 27.0-33.0; Units: pg; Status: F Test: MEAN CORPUSCULAR HGB CONC; Value: 33.8; Range: 32.0-36.5; Units: g/dl; Status: F Test: RED CELL DISTRIBUTION WIDTH; Value: 12.6; Range: 11.5-14.5; Units: %; Status: F Test: PLATELET COUNT, AUTOMATED; Value: 463; Range: 150-450; Abnormal: Above high normal; Units: k/mm3; Status: F Test: NEUTROPHILS %; Value: 86.6; Range: 36.0-66.0; Abnormal: Above high normal; Units: %; Status: F Test: LYMPH %; Value: 6.1; Range: 24.0-44.0; Abnormal: Below low normal; Units: %; Status: F Test: MONO %; Value: 5.5; Range: 0.0-5.0; Abnormal: Above high normal; Units: %; Status: F Test: EOS %; Value: 0.8; Range: 0.0-3.0; Units: %; Status: F Test: BASO %; Value: 0.1; Range: 0.0-1.0; Units: %; Status: F Test: LARGE UNSTAINED CELL %; Value: 0.9; Range: 0.0-4.0; Units: %; Status: F Test: NEUTROPHILS #; Value: 11.0; Range: 1.8-7.7; Abnormal: Above high normal; Units: K/mm3; Status: F Test: LYMPH #; Value: 0.9; Range: 1.5-4.5; Abnormal: Below low normal; Units: K/mm3; Status: F Test: MONO #; Value: 0.7; Range: 0.0-0.8; Units: K/mm3; Status: F Test: EOS #; Value: 0.1; Range: 0.0-0.50; Units: K/mm3; Status: F Test: BASO #; Value: 0.0; Range: 0.0-0.2; Units: K/mm3; Status: F Test: LARGE UNSTAINED CELL #; Value: 0.1; Range: 0.0-0.4; Units: K/mm3; Status: F Lab Order: CIP; SPEC'M 05/26/16 11:43 Test: CPK CREATINE PHOSPHOKINASE; Value: 28; Range: 26-192; Units: U/L; Status: F Test: CK-MB VALUE MASS; Value: 1.0; Range: 0.0-3.6; Units: NG/ML; Status: F Test: MB/CK RELATIVE INDEX; Value: 3.57; Range: < OR =4; Status: F Test Note: ; DIAGNOSIS CRITERIA MMB ng/ml Relative Index (RI) NON-AMI < or = 5 N/A HOOPER ZONE > 5 < or = 4 AMI > 5 > 4 Lab Order: Troponin; SPEC'M 05/26/16 11:43 Test: TROPONIN I; Value: 0.02; Range: < 0.10; Units: NG/ML; Status: F Test Note: ; Troponin I Reference Interval for [employer] LOCI: 99th Percentile= 0.00-0.045 ng/ml Risk Stratification: <= 0.10 ng/ml Decreased Risk for Adverse Clinical Events. 0.10-1.50 ng/ml Increased Risk for Adverse Clinical Events. Evaluation of additional criterion and/or repeat testing in 2-6 hours is suggested to rule out myocardial damage. >= 1.50 ng/ml Indicative of Myocardial Injury. Lab Order: Lactic Acid (Hooper tube on ice); [facility] 05/26/16 11:43 Test: LACTIC ACID SEPSIS PROTOCOL; Value: 2.1; Range: 0.4-2.0; Abnormal: Above upper panic limits; Units: MMOL/L; Status: F Lab Order: BNP; [facility] 11:43 Test: BRAIN NATRIURETIC PEPTIDE; Value: 431; Range: <100; Abnormal: Above high normal; Units: PG/ML; Status: F Lab Order: RESPIRATORY PANEL; [facility] 05/26/16 12:03 Test: RESPIRATORY PANEL; Value: RP PANEL RESULT NEGATIVE by PCR; Status: F Test: RESPIRATORY PANEL; Value: Comments:; Status: F Test Note: ; This respiratory PCR panel detects Influenza A H1, H3 and 2009 H1 viruses, Influenza B virus, Respiratory syncytial virus, Human metapneumovirus, Parainfluenza virus 1, 2, 3 and 4, Adenovirus, Rhinovirus/Enterovirus, Coronavirus HKU1, NL63, OC43 and 229E, Bordetella pertussis, Mycoplasma pneumoniae and Chlamydia pneumoniae. Lab Order: MAGNESIUM LEVEL; [facility] 05/26/16 11:43 Test: MAGNESIUM LEVEL; Value: 2.1; Range: 1.8-2.4; Units: MG/DL; Status: F Lab Order: THYROID PROFILE; [facility] 05/26/16 11:43 Test: T UPTAKE; Value: 37; Range: 30-39; Units: %; Status: F Test: THYROXINE (T4); Value: 9.2; Range: 4.5-12.0; Units: UG/DL; Status: F Test: FREE THYROXINE INDEX; Value: 3.4; Range: 1.3-4.8; Units: %; Status: F Test: THYROID STIMULATING HORMONE; Value: 1.640; Range: 0.358-3.740; Units: uIU/ML; Status: F Radiology Order: Chest, 1 View Test: Chest, 1 View REASON FOR EXAMINATION: tachycardia; Clinical: Tachycardia.; ; Technique: Portable examination.; ; Comparison: 05/24/2016.; ; Findings:; Hilar adenopathy and right lower lobe mass with associated right lower lobe; infiltrates similar to prior examination. Mediastinum and cardiac silhouette; stable with mild cardiomegaly again suggested. No pneumothorax. Skeletal; structures intact.; ; Impression:; Hilar adenopathy and right lower lobe mass with right lower lobe consolidation.; ; ; Signed by; Bhavesh Dillard MD 05/26/2016 12:05 P; Outcome: 13:26 Decision to Hospitalize by Provider. sd1 18:28 Discharge Assessment: Patient awake, alert and oriented x 3. No cognitive and/or k functional deficits noted. Patient verbalized understanding of disposition instructions. patient administered narcotics - no. The following High Risk Discharge criteria are identified: None. Admitted to PCU accompanied by nurse, accompanied by tech, via stretcher, on monitor, with chart. Condition: improved. No special radiology studies were completed. Admission hand-off: Report called to jossy whitehead. Property :Personal belongings accompany Pt. 18:32 Patient left the ED. liz Signatures: Dispatcher [employer] EDMS Janice Garcia MD MD sd1 Brian Hooker,RN RN Reena Woodard, Reg Reg gb Willie Grier, Reg Reg lg Cami Prater mt4 Anibal Heredia, RN RN ml6 Andrew Sargent jml1 Warren Mayes, HELEN ASIC ENGINEER jrd Corrections: (The following items were deleted from the chart) 12:00 11:47 THYROID PROFILE+LAB sent. [facility] EDMO 12:00 11:47 MAGNESIUM LEVEL+LAB sent. [facility] EDMO MTDD
[2016-05-26] MEDS: VANCOMYCIN HCL 1,000 MG, VIAL MATE ADAPTER 1 EACH in D5W 250 ML IV SCH (18:55)
[2016-05-26 18:59] VITALS: BP 140/68
--- NOTE | 2016-05-26 20:14 | ECGEPIP ---
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
[2016-05-26 20:15] LABS: VENOUS BASE EXCESS -2.2 (-2.0-2.0); VENOUS O2 SATURATION 81.4 % (60.0-80.0); VENOUS PARTIAL PRESSURE CO2 39.8 mmHg (38.0-50.0); VENOUS PARTIAL PRESSURE O2 46.9 mmHg (30.0-50.0); VENOUS STANDARD HCO3 22.3 MEQ/L
[2016-05-26 21:00] VITALS: BP 140/58
[2016-05-26] MEDS: PIPERACILLIN/TAZOBACTAM SOD 3.375 GM in D5W MINI-BAG PLUS 50 ML IV SCH (21:01)
[2016-05-26 23:00] VITALS: BP 128/60
[2016-05-26] MEDS: zolPIDEM TARTRATE 5 MG TAB PO SCH (23:28)
[2016-05-27] VITALS (8 sets, daily range): BP systolic 130–178; BP diastolic 40–87
[2016-05-27] MEDS: PIPERACILLIN/TAZOBACTAM SOD 3.375 GM in D5W MINI-BAG PLUS 50 ML IV SCH ×4 (02:12→19:56)
[2016-05-27] MEDS: VANCOMYCIN HCL 1,000 MG, VIAL MATE ADAPTER 1 EACH in D5W 250 ML IV SCH ×2 (04:11→16:15)
[2016-05-27] MEDS: LEVOTHYROXINE 0.075 MG TAB (75 MCG) PO SCH (05:07)
[2016-05-27 05:34] LABS: BASO % 0.1 % (0.0-1.0); EOS # 0.1 K/mm3 (0.0-0.50); LARGE UNSTAINED CELL # 0.1 K/mm3 (0.0-0.4); LARGE UNSTAINED CELL % 0.9 % (0.0-4.0); LYMPH # 0.9 K/mm3 (1.5-4.5); MEAN CORPUSCULAR HEMOGLOBIN 30.5 pg (27.0-33.0); MEAN CORPUSCULAR VOLUME 89.7 fl (80.0-96.0); MONO # 0.7 K/mm3 (0.0-0.8); NEUTROPHILS # 9.3 K/mm3 (1.8-7.7); PLATELET COUNT, AUTOMATED 414 k/mm3 (150-450); RED CELL DISTRIBUTION WIDTH 12.5 % (11.5-14.5)
[2016-05-27 05:55] LABS: ALBUMIN 2.7 GM/DL (3.2-5.2); ALBUMIN/GLOBULIN RATIO 0.79 (1.00-1.93); ALKALINE PHOSPHATASE 81 U/L (45-117); ALT/SGPT 13 U/L (12-78); ANION GAP 10 MEQ/L (8-16); AST/SGOT 16 U/L (15-37); BILIRUBIN,TOTAL 0.8 MG/DL (0.2-1.0); BLOOD UREA NITROGEN 26 MG/DL (7-18); CALCIUM LEVEL 8.5 MG/DL (8.8-10.2); CARBON DIOXIDE LEVEL 25 MEQ/L (21-32); CHLORIDE LEVEL 101 MEQ/L (98-107); CREATININE FOR GFR 0.71 MG/DL (0.55-1.02); GLOMERULAR FILTRATION RATE > 60.0 (>32); GLUCOSE, FASTING 162 MG/DL (83-110); MAGNESIUM LEVEL 1.9 MG/DL (1.8-2.4); POTASSIUM SERUM 3.9 MEQ/L (3.5-5.1); SODIUM LEVEL 136 MEQ/L (136-145); TOTAL PROTEIN 6.1 GM/DL (6.4-8.2)
[2016-05-27] MEDS ORDERED: buPROPion (WELLBUTRIN SR) 100 MG SR TAB PO SCH (09:00)
--- NOTE | 2016-05-27 09:23 | IPNPDOC ---
Subjective Date Seen The patient was seen on 05/27/16. Subjective Chief Complaint/HPI The patient is a 81-year-old female admitted with a reason for visit of Atrial Flutter With Rapid Ventricular Resp. Events since last encounter She continues to feel nauseated and remains in a-flutter c RVR on telemetry. She 's required intermittent IV dosing of cardizem to maintain pulse <110 General: Reports: Normal Appetite, Denies: Chills, Fatigue, Malaise, Night Sweats ENT: Denies: Dysphagia, Ear Pain, Head Aches Skin: Denies: Breakdown, Lesions, Rash Cardiovascular: Denies: Chest Pain, Lt Headedness, Orthopnea, Palpitations, Paroxysmal Noc. Dyspnea Gastrointestinal: Reports: Nausea, Denies: Abdominal Pain, Constipation, Diarrhea, Vomiting Genitourinary: Denies: Dysuria, Frequency, Incontinence, Retention Neurological: Denies: Change in speech, Confusion, Numbness, Weakness Objective Physical Examination General Exam: Positive: Alert, No Acute Distress Eye Exam: Positive: Conjunctiva & lids normal, EOMI, PERRLA, Negative: Sclera icteric ENT Exam: Positive: Atraumatic, Mucous membr. moist/pink, Pharynx Normal Neck Exam: Positive: Supple, Negative: JVD Chest Exam: Positive: Clear to auscultation, Normal air movement Heart Exam: Positive: Irregular Rhythm, Tachycardic, Negative: Murmurs Telemetry: Positive: Atrial fibrillation Abdomen Exam: Positive: Normal bowel sounds, Soft, Negative: Hepatospenomegaly, Tenderness Extremity Exam: Positive: Normal pulses, Negative: Clubbing, Cyanosis, Edema Skin Exam: Positive: Nl turgor and temperature, Negative: Breakdown, Rash Assessment /Plan Problems (1) Atrial flutter with rapid ventricular response Status: Acute Discussed With: Other Discussed With: (Dr. Roa) Problem Specific Plan: Consult Specialist Problem Text: -Cardiac enzymes cycled, neg -Echo ordered -Oral diltiazem q6 c IV PRN HR>120 -TSH WNL -Consult cardiology- Dr. Roa -On subq heparin (2) Postobstructive pneumonia Status: Acute Problem Text: RVP neg On Zosyn/Vanco, narrow spectrum if cx become available Not requiring O2. Blood cx pending (3) Mass of lung Status: Acute Problem Text: Two masses noted in right lower lobe: one in the lateral basal segment 5.5 cm subpleural; other in medial basal segment also posteriorly lower of 5.5 x 4 cm These will both need to be bx; she has 60 yr h/o smoking. Yennifer consulted c Pulmonology who personally reviewed the CT from 05/12 and suggested that he undergo CT guided bx once stable and prior to initiation of coumadin. Will hold heparin once cardiac status stabilized. (4) Hypothyroid Status: Chronic Problem Text: Thyroid studies WNL upon admission. Continue synthroid (5) Anxiety Status: Chronic Problem Text: Controlled at home on Wellbutrin. Plan/VTE VTE Prophylaxis Ordered?: Yes (heparin) Plan Attending attestation: I saw and evaluated the patient, and I agree with the plan of care as discussed and documented by the resident. Celia Mandujano MD VS, I&O, 24H, [facility] Vital Signs/I&O Vital Signs Date Time Temp Pulse Resp B/P Pulse Ox O2 Delivery O2 Flow Rate FiO2 05/27/16 07:20 97.9 100 18 130/60 95 Room Air 05/27/16 04:00 2.0 I&O- Last 24 Hours up to 6 AM 05/27/16 05:59 Intake Total 1230 ml Output Total 400 ml Balance 830 ml Laboratory Data 24H LABS Laboratory Tests 2 05/26/16 11:43: Anion Gap 11, B-Type Natriuretic Peptide 431H, White Blood Count 12.7H, Red Blood Count 4.16, Hemoglobin 12.8, Hematocrit 37.9, Mean Corpuscular Volume 91.2 , Mean Corpuscular Hemoglobin 30.8, Mean Corpuscular Hemoglobin Concent 33.8, Red Cell Distribution Width 12.6, Platelet Count 463H, Neutrophils (%) (Auto) 86.6H, Lymphocytes (%) (Auto) 6.1L, Monocytes (%) (Auto) 5.5H, Eosinophils (%) ( Auto) 0.8, Basophils (%) (Auto) 0.1, Neutrophils # (Auto) 11.0H, Lymphocytes # ( Auto) 0.9L, Monocytes # (Auto) 0.7, Eosinophils # (Auto) 0.1, Basophils # (Auto ) 0.0, Blood Urea Nitrogen 29H, Creatinine 0.78, Sodium Level 135L, Potassium Level 4.1, Chloride Level 99, Carbon Dioxide Level 25, Calcium Level 9.7, Total Creatine Kinase 28, Creatine Kinase MB 1.0, Creatine Kinase MB Relative Index 3.57, Free Thyroxine Index 3.4, Glomerular Filtration Rate > 60.0, Lactic Acid ( Sepsis) 2.1*H, Large Unclassified Cells # 0.1, Large Unclassified Cells % 0.9, Magnesium Level 2.1, Thyroid Stimulating Hormone (TSH) 1.640, Thyroxine (T4) 9.2 , Triiodothyronine (T3) Uptake 37, Troponin I 0.02 05/26/16 16:15: Lactic Acid Level 1.9 05/26/16 19:56: Blood Gas Bicarbonate Standard 22.3, Blood Gas Puncture Site UNKNOWN, Venous Blood Base Excess -2.2L, Venous Blood pH 7.375, Venous Blood Partial Pressure CO2 39.8, Venous Blood Partial Pressure O2 46.9, Venous Blood Total Carbon Dioxide 24.0, Venous Blood HCO3 22.8L, Venous Blood Oxygen Saturation 81.4H 05/26/16 19:57: Total Creatine Kinase 27, Creatine Kinase MB 1.0, Creatine Kinase MB Relative Index 3.70, Troponin I 0.02 05/26/16 21:03: 05/27/16 05:10: Blood Urea Nitrogen 26H, Creatinine 0.71, Sodium Level 136, Potassium Level 3.9 , Chloride Level 101, Carbon Dioxide Level 25, Calcium Level 8.5L, Aspartate Amino Transf (AST/SGOT) 16, Alanine Aminotransferase (ALT/SGPT) 13, Total Creatine Kinase 26, Alkaline Phosphatase 81, Total Bilirubin 0.8, Total Protein 6.1L, Albumin 2.7L, Albumin/Globulin Ratio 0.79L, Anion Gap 10, White Blood Count 11.0H, Red Blood Count 3.68L, Hemoglobin 11.2L, Hematocrit 33.0L, Mean Corpuscular Volume 89.7, Mean Corpuscular Hemoglobin 30.5, Mean Corpuscular Hemoglobin Concent 34.0, Red Cell Distribution Width 12.5, Platelet Count 414, Neutrophils (%) (Auto) 85.0H, Lymphocytes (%) (Auto) 7.0L, Monocytes (%) (Auto) 6.0H, Eosinophils (%) (Auto) 1.0, Basophils (%) (Auto) 0.1, Neutrophils # (Auto ) 9.3H, Lymphocytes # (Auto) 0.9L, Monocytes # (Auto) 0.7, Eosinophils # (Auto) 0.1, Basophils # (Auto) 0.0, Creatine Kinase MB 1.0, Creatine Kinase MB Relative Index 3.84, Glomerular Filtration Rate > 60.0, Large Unclassified Cells # 0.1, Large Unclassified Cells % 0.9, Magnesium Level 1.9, Thyroid Stimulating Hormone (TSH) 0.953, Troponin I 0.03# CBC/BMP Laboratory Tests 05/26/16 11:43 Calcium Level 9.7, Total Creatine Kinase 28, Red Blood Count 4.16, Mean Corpuscular Volume 91.2, Mean Corpuscular Hemoglobin 30.8, Mean Corpuscular Hemoglobin Concent 33.8, Red Cell Distribution Width 12.6, Neutrophils (%) (Auto ) 86.6 H, Lymphocytes (%) (Auto) 6.1 L, Monocytes (%) (Auto) 5.5 H, Eosinophils (%) (Auto) 0.8, Basophils (%) (Auto) 0.1, Neutrophils # (Auto) 11.0 H, Lymphocytes # (Auto) 0.9 L, Monocytes # (Auto) 0.7, Eosinophils # (Auto) 0.1, Basophils # (Auto) 0.0 05/27/16 05:10 Calcium Level 8.5 L, Total Creatine Kinase 26, Red Blood Count 3.68 L, Mean Corpuscular Volume 89.7, Mean Corpuscular Hemoglobin 30.5, Mean Corpuscular Hemoglobin Concent 34.0, Red Cell Distribution Width 12.5, Neutrophils (%) (Auto ) 85.0 H, Lymphocytes (%) (Auto) 7.0 L, Monocytes (%) (Auto) 6.0 H, Eosinophils (%) (Auto) 1.0, Basophils (%) (Auto) 0.1, Neutrophils # (Auto) 9.3 H, Lymphocytes # (Auto) 0.9 L, Monocytes # (Auto) 0.7, Eosinophils # (Auto) 0.1, Basophils # (Auto) 0.0, Aspartate Amino Transf (AST/SGOT) 16, Alanine Aminotransferase (ALT/SGPT) 13, Alkaline Phosphatase 81, Total Bilirubin 0.8, Total Protein 6.1 L, Albumin 2.7 L Microbiology Microbiology 05/26/16 Blood Culture, Received Pending 05/26/16 Blood Culture, Received Pending 05/26/16 Respiratory Virus Panel (PCR) (ISELA) - Final, Complete THEA SWAN DO May 27, 2016 09:23 CELIA MANDUJANO MD Jun 01, 2016 12:11
[2016-05-27] MEDS: ONDANSETRON 4 MG TAB (S0181) PO PRN (12:55)
[2016-05-27] MEDS ORDERED: diltiaZEM 125 MG in NS 100 ML IV SCH (15:00)
[2016-05-27] MEDS ORDERED: AMIODARONE HCL 150 MG in APPROPRIATE DILUENT 1 EA IV STA (15:52)
[2016-05-27] MEDS ORDERED: AMIODARONE HCL 150 MG in APPROPRIATE DILUENT 1 EA IV ONE (19:30)
[2016-05-27] MEDS: zolPIDEM TARTRATE 5 MG TAB PO SCH (20:32)
[2016-05-27] MEDS ORDERED: HEPARIN SOD (PORCINE) 5000 UNITS/ML VIAL SQ SCH (21:00)
--- NOTE | 2016-05-27 22:04 | CR ---
DATE OF CONSULTATION: 05/27/2016 REFERRING PROVIDER: Dr. Benny Mandujano REASON FOR CONSULT: Atrial flutter. HISTORY OF PRESENT ILLNESS: 81-year-old woman with a history of hypothyroidism, gastroesophageal reflux disease, anxiety, was brought to the hospital yesterday because the had noticed that patient's blood pressure and pulse has been high. She was found to be in atrial flutter with a rapid ventricular rate. Upon arrival at the emergency room, her vital signs revealed blood pressure of 139/80 with a pulse of 176, respirations 20, and her temperature ws 97.2 degree Fahrenheit with oxygen saturation of 97%. She weighed 68.4 kg, and she is 5 feet 6 inches. Mrs. Kasia Sandoval's problems started about 6 weeks with recurrent upper respiratory tract infection, and she had a recent chest x-ray and that revealed a right lung mass with hilar adenopathy and consolidation. The immediate plan was to proceed with biopsy and according to the family, patient has been very nervous about that and her blood pressure has been running high. Mrs. Kasia Sandoval was sitting up in bed in no acute distress at rest and her was at bed side. She denies any complaint of chest pain and she does not feel the rapid heart beat. In the past, according to the family, she was having pain upon coughing. She was having hemoptysis. She denies any fever or chills. She has no nausea, vomiting, diarrhea, melena or hematemesis but she has not been eating. She has no focal manifestation. There is no acute bleeding reported. She has no pedal edema. She has a past medical history as mentioned above positive for hypothyroidism, gastroesophageal reflux disease, anxiety and she was recently diagnosed last month with a lung mass and she is being treated for postoperative pneumonia. She denies any history of hypertension. She denies any prior history of hypertension, hyperlipidemia, diabetes mellitus, kidney disease, thyroid disorders, liver disease. She denies any history of coronary artery disease, myocardial infarction, congestive heart failure, significant valvular heart disease, cerebrovascular accident (CVA), cardiomyopathy, sudden cardiac . PAST SURGICAL HISTORY: Positive for tubal ligation. FAMILY HISTORY: Noncontributory. SOCIAL HISTORY: Patient lives with her , and she has a long history of smoking, about one pack per day for over 60 years. She denies any ETOH abuse or illicit drugs. ALLERGIES: She has allergy to LEVAQUIN/QUINOLONES. ADVANCED DIRECTIVES: Patient is a FULL CODE. PHYSICAL EXAMINATION: Patient is alert and oriented and appears to be anxious. She is not in any distress. Her last vital signs today reveal a blood pressure of 132/52 with a pulse on telemetry that is about 120 beats per minute. Maximum temperature is 98.5 degree Fahrenheit and her oxygen saturation is 94-99% on 2 liter nasal cannula. 05/26/2016 she had a fluid balance of 420 mL. HEAD: Examination of the head is normocephalic, atraumatic. NECK: Supple, no jugular venous distention or carotid bruits. LUNGS: Reveal dry crackles at the level of the mid and right base. HEART: The heart is irregularly irregular heart sounds without gallops. The PMI is not displaced. There is no rub. I could not appreciate any murmurs. ABDOMEN: Is unremarkable. EXTREMITIES: No pitting edema. PERIPHERAL PULSES: Dorsalis pedis are +2 and equal. NEUROLOGIC: Examination is negative for focal deficit. LABORATORY DATA: CBC done today revealed a WBC of 11.0, hemoglobin 11.2, hematocrit 33.0 and platelet is 414. BMP revealed a sodium of 136, potassium 3.9, chloride 101, CO2 25, BUN 26, creatinine 0.7, glomerular filtration rate (GFR) more than 60. Fasting glucose 162, calcium 8.5. Serum magnesium is 1.9. Liver enzyme reveals a total bilirubin of 0.8, AST 16, ALT 13, alkaline phosphatase 81. Total protein 6.1, albumin 2.7. TSH is 0.95. Serum BNP is 435. Serum troponin is 0.02 and 0.03. ABG on admission revealed a pH of 7.37, PCO2 39,8, and PO2 46.9 with a bicarbonate of 22.3. Electrocardiogram on admission revealed atrial flutter at 174 beats per minute, nonspecific ST-T abnormalities and underlying right bundle branch block. Chest x-ray on 05/26/2016 revealed hilar adenopathy and right lower lobe mass with right lower lobe consolidation. IMPRESSION: 1. Atrial flutter, newly diagnosed with rapid ventricular rate. 2. Hypertension, also newly diagnosed. 3. History of hypothyroidism. 4. History of gastroesophageal reflux disease. 5. Anxiety. 6. Large right lung mass with postoperative pneumonia. Mrs. Kasia Sandoval has been receiving doses of Cardizem and case was discussed earlier today with the staff and she was given a dose of amiodarone. Her medications were reviewed this evening, and I will continue the same but I will increase the Cardizem. It probably will take a few days in order to control her heart rate, particularly in view of her anxiety and her underlying pneumonia. Atrial flutter also can be difficult to control. I will monitor along with you. While in the hospital, she will have an echocardiogram to assess her left ventricular systolic function then further recommendations will be given. She will benefit from chronic anticoagulation therapy and this was discussed with her. She may be started on Eliquis at 5 mg by mouth twice a day or Xarelto 20 mg by mouth daily. It was pleasure to participate in the care of Mrs. Kasia Sandoval for her underlying cardiac condition. I will continue to monitor along with you while in the hospital and as outpatient as needed. Please do not hesitate to all if any questions.
--- NOTE | 2016-05-27 22:48 | ECHO ---
DATE OF PROCEDURE: 05/27/2016 REFERRING PHYSICIAN: Speedy Renteria MD PATIENT LOCATION: Room ED-C41. REASON FOR ECHOCARDIOGRAM: Unspecified heart failure. 2D MEASUREMENTS: IVS: 1.3 cm LV: 3.2 cm LVPW: 1.3 cm LA: 4.1 cm Aorta: 3.0 cm DOPPLER MEASUREMENTS: Peak velocity across the aortic valve: 1.2 m/s Peak velocity across the LVOT: 0.71 m/s Mitral E: 1.0. Maximum tricuspid valve velocity: 2.8 m/s 2D COMMENTS: 1. Normal left ventricular size, wall thickness and normal global left ventricular systolic function in limited views. The patient was markedly tachycardic during the echocardiogram, therefore, left ventricular ejection fraction (LVEF) was not well appreciated. 2. Mildly enlarged left atrium. The right atrium and the right ventricle appear to be normal. 3. Normal aortic root. 4. Trace to small pericardial effusion noted, no evidence of cardiac tamponade. 5. Mildly calcified aortic valve with normal leaflet excursion. Mildly calcified mitral annulus with normal anterior mitral valve leaflet motion. Normal tricuspid valve. The pulmonic valve and proximal pulmonary artery branches also appeared to be normal. 7. Subjectively, the inferior vena cava appeared to be enlarged, central venous pressure might be elevated. DOPPLER: It detects trace aortic regurgitation, mild mitral regurgitation and moderate tricuspid regurgitation. The calculated pulmonary artery systolic pressure varies between 30 to 40 mmHg. Assessment of the left ventricular diastolic function was limited in view of the underlying atrial fibrilation/flutter. IMPRESSION: 1. Probably normal global left ventricular systolic function. There was mild concentric left ventricular hypertrophy. 2. Aortic valve sclerosis with trace aortic regurgitation, but no aortic stenosis. 3. Mildly enlarged left atrium with mitral annulus calcification and mild mitral regurgitation. 4. Moderate tricuspid regurgitation with mild pulmonary hypertension. 5. There were findings consistent with elevated central venous pressure. MTDD
[2016-05-28] VITALS (7 sets, daily range): BP systolic 118–152; BP diastolic 62–78
[2016-05-28] MEDS: PIPERACILLIN/TAZOBACTAM SOD 3.375 GM in D5W MINI-BAG PLUS 50 ML IV SCH ×4 (00:43→18:10)
[2016-05-28] MEDS: VANCOMYCIN HCL 1,000 MG, VIAL MATE ADAPTER 1 EACH in D5W 250 ML IV SCH ×2 (04:08→15:09)
[2016-05-28 06:06] LABS: BASO % 0.2 % (0.0-1.0); EOS # 0.1 K/mm3 (0.0-0.50); EOS % 0.8 % (0.0-3.0); LARGE UNSTAINED CELL # 0.1 K/mm3 (0.0-0.4); LARGE UNSTAINED CELL % 0.7 % (0.0-4.0); LYMPH # 0.7 K/mm3 (1.5-4.5); LYMPH % 5.3 % (24.0-44.0); MEAN CORPUSCULAR HEMOGLOBIN 30.6 pg (27.0-33.0); MEAN CORPUSCULAR HGB CONC 34.3 g/dl (32.0-36.5); MEAN CORPUSCULAR VOLUME 89.2 fl (80.0-96.0); MONO # 0.7 K/mm3 (0.0-0.8); MONO % 5.7 % (0.0-5.0); NEUTROPHILS % 87.4 % (36.0-66.0); PLATELET COUNT, AUTOMATED 442 k/mm3 (150-450); RED CELL DISTRIBUTION WIDTH 12.5 % (11.5-14.5); WHITE BLOOD COUNT 11.5 K/mm3 (4.0-10.0)
[2016-05-28] MEDS: LEVOTHYROXINE 0.075 MG TAB (75 MCG) PO SCH (06:25)
[2016-05-28 06:28] LABS: ALBUMIN 2.7 GM/DL (3.2-5.2); ALBUMIN/GLOBULIN RATIO 0.84 (1.00-1.93); ALKALINE PHOSPHATASE 75 U/L (45-117); ALT/SGPT 13 U/L (12-78); ANION GAP 9 MEQ/L (8-16); AST/SGOT 16 U/L (15-37); BILIRUBIN,TOTAL 0.6 MG/DL (0.2-1.0); BLOOD UREA NITROGEN 22 MG/DL (7-18); CALCIUM LEVEL 8.5 MG/DL (8.8-10.2); CARBON DIOXIDE LEVEL 25 MEQ/L (21-32); CHLORIDE LEVEL 100 MEQ/L (98-107); GLOMERULAR FILTRATION RATE > 60.0 (>32); GLUCOSE, FASTING 138 MG/DL (83-110); MAGNESIUM LEVEL 1.9 MG/DL (1.8-2.4); POTASSIUM SERUM 3.2 MEQ/L (3.5-5.1); SODIUM LEVEL 134 MEQ/L (136-145); TOTAL PROTEIN 5.9 GM/DL (6.4-8.2)
[2016-05-28] MEDS ORDERED: POTASSIUM CHLORIDE 10 MEQ SR TABLET PO ONE (07:30)
--- NOTE | 2016-05-28 07:36 | IPNPDOC ---
Subjective Date Seen The patient was seen on 05/28/16. Subjective Chief Complaint/HPI The patient is a 81-year-old female admitted with a reason for visit of Atrial Flutter With Rapid Ventricular Resp. Events since last encounter Kasia was seen by Dr. Roa yesterday afternoon. Her cardizem dose was further increased to 60mg QID. Blood pressures have been acceptable, but her HRs have been in the 110s-130s. She remains in flutter on telemetry. Nausea has resolved , however, she does continue to report anxiety regarding her recently identified lung masses. General: Reports: Normal Appetite, Denies: Chills, Fatigue, Malaise, Night Sweats Constitutional: Denies: Chills, Fever, Night Sweats Pulmonary: Denies: Cough, Dyspnea Cardiovascular: Denies: Chest Pain, Lt Headedness, Orthopnea, Palpitations, Paroxysmal Noc. Dyspnea Gastrointestinal: Reports: Nausea, Denies: Abdominal Pain, Constipation, Diarrhea, Vomiting Genitourinary: Denies: Dysuria, Frequency, Incontinence, Retention Neurological: Denies: Change in speech, Confusion, Numbness, Weakness Psych: Reports: Anxiety, Denies: Depression, Thoughts of Self Harm Objective Physical Examination General Exam: Positive: Alert, No Acute Distress Eye Exam: Positive: Conjunctiva & lids normal, EOMI, PERRLA, Negative: Sclera icteric ENT Exam: Positive: Atraumatic, Mucous membr. moist/pink, Pharynx Normal Neck Exam: Positive: Supple, Negative: JVD Chest Exam: Positive: Clear to auscultation, Normal air movement Heart Exam: Positive: Irregular Rhythm, Tachycardic, Negative: Murmurs Telemetry: Positive: Atrial fibrillation Abdomen Exam: Positive: Normal bowel sounds, Soft, Negative: Hepatospenomegaly, Tenderness Extremity Exam: Positive: Normal pulses, Negative: Clubbing, Cyanosis, Edema Skin Exam: Positive: Nl turgor and temperature, Negative: Breakdown, Rash Assessment /Plan Problems (1) Atrial flutter with rapid ventricular response Status: Acute Discussed With: Other Discussed With: (Dr. Roa) Problem Specific Plan: Consult Specialist Problem Text: -Dr. Roa following, adjusting cardiac meds. Cardizem has been increased. She did receive a dose of amiodarone yesterday afternoon. HRs in the 110s-130s, slightly better than 140s upon admission. -Cardiac enzymes cycled, neg -Echo ordered -Oral diltiazem q6 c IV PRN HR>120 -TSH WNL -On subq heparin for anticoagulation, awaiting lung nodule bx. Will be placed on NOAC s/p bx. (2) Postobstructive pneumonia Status: Acute Problem Text: 05/08 recently dx lung masses. RVP neg On D3 Zosyn/Vanco, narrow spectrum if cx become available Not requiring O2. Blood cx NG @24h Afebrile (3) Mass of lung Status: Acute Problem Text: Two masses noted in right lower lobe: one in the lateral basal segment 5.5 cm subpleural; other in medial basal segment also posteriorly lower of 5.5 x 4 cm These will both need to be bx; she has 60 yr h/o smoking. Yennifer consulted c Pulmonology who personally reviewed the CT from 05/12 and suggested that he undergo CT guided bx once stable and prior to initiation of coumadin. Will hold heparin once cardiac status stabilized to allow for bx. (4) Hypothyroid Status: Chronic Problem Text: Thyroid studies WNL upon admission. Continue synthroid (5) Anxiety Status: Chronic Problem Text: Controlled at home on Wellbutrin. Lorazepam was added as needed, but she has not required any PRN doses. Plan/VTE VTE Prophylaxis Ordered?: Yes (heparin) Plan Diet: Continue Current Activity: Encourage Ambulation Attending attestation: I saw and evaluated the patient, and I agree with the plan of care as discussed and documented by the resident. Celia Mandujano MD VS, I&O, 24H, [facility] Vital Signs/I&O Vital Signs Date Time Temp Pulse Resp B/P Pulse Ox O2 Delivery O2 Flow Rate FiO2 05/28/16 04:00 98.1 125 20 152/62 95 Room Air 05/27/16 08:00 2.0 I&O- Last 24 Hours up to 6 AM 05/28/16 06:00 Intake Total 1370 ml Output Total 275 ml Balance 1095 ml Laboratory Data 24H LABS Laboratory Tests 2 05/28/16 05:34: Blood Urea Nitrogen 22H, Creatinine 0.60, Sodium Level 134L, Potassium Level 3.2L, Chloride Level 100, Carbon Dioxide Level 25, Calcium Level 8.5L, Aspartate Amino Transf (AST/SGOT) 16, Alanine Aminotransferase (ALT/SGPT) 13, Alkaline Phosphatase 75, Total Bilirubin 0.6, Total Protein 5.9L, Albumin 2.7L, Albumin/Globulin Ratio 0.84L, Anion Gap 9, White Blood Count 11.5H, Red Blood Count 3.66L, Hemoglobin 11.2L, Hematocrit 32.6L, Mean Corpuscular Volume 89.2, Mean Corpuscular Hemoglobin 30.6, Mean Corpuscular Hemoglobin Concent 34.3, Red Cell Distribution Width 12.5, Platelet Count 442, Neutrophils (%) (Auto) 87.4H, Lymphocytes (%) (Auto) 5.3L, Monocytes (%) (Auto) 5.7H, Eosinophils (%) (Auto) 0.8, Basophils (%) (Auto) 0.2, Neutrophils # (Auto) 10.0H, Lymphocytes # (Auto) 0.7L, Monocytes # (Auto) 0.7, Eosinophils # (Auto) 0.1, Basophils # (Auto) 0.0, Glomerular Filtration Rate > 60.0, Large Unclassified Cells # 0.1, Large Unclassified Cells % 0.7, Magnesium Level 1.9 CBC/BMP Laboratory Tests 05/28/16 05:34 Calcium Level 8.5 L, Aspartate Amino Transf (AST/SGOT) 16, Alanine Aminotransferase (ALT/SGPT) 13, Alkaline Phosphatase 75, Total Bilirubin 0.6, Total Protein 5.9 L, Albumin 2.7 L, Red Blood Count 3.66 L, Mean Corpuscular Volume 89.2, Mean Corpuscular Hemoglobin 30.6, Mean Corpuscular Hemoglobin Concent 34.3, Red Cell Distribution Width 12.5, Neutrophils (%) (Auto) 87.4 H, Lymphocytes (%) (Auto) 5.3 L, Monocytes (%) (Auto) 5.7 H, Eosinophils (%) (Auto ) 0.8, Basophils (%) (Auto) 0.2, Neutrophils # (Auto) 10.0 H, Lymphocytes # ( Auto) 0.7 L, Monocytes # (Auto) 0.7, Eosinophils # (Auto) 0.1, Basophils # (Auto ) 0.0 Microbiology Microbiology 05/26/16 Blood Culture - Preliminary, Resulted No growth after 24 hours . All specim... 05/26/16 Blood Culture - Preliminary, Resulted No growth after 24 hours . All specim... 05/26/16 Respiratory Virus Panel (PCR) (ISELA) - Final, Complete THEA SWAN DO May 28, 2016 07:36 CELIA MANDUJANO MD Jun 01, 2016 11:43
[2016-05-28] MEDS: buPROPion (WELLBUTRIN SR) 100 MG SR TAB PO SCH (08:15)
[2016-05-28] MEDS ORDERED: HEPARIN SOD (PORCINE) 5000 UNITS/ML VIAL SQ SCH (09:00)
[2016-05-28] MEDS ORDERED: SLF 3 ML SYR IV PRN (12:15)
[2016-05-28] MEDS: SLF 3 ML SYR IV SCH ×2 (15:09→20:06)
[2016-05-28] MEDS: HEPARIN SOD (PORCINE) 5000 UNITS/ML VIAL SQ SCH ×2 (15:09→20:06)
--- NOTE | 2016-05-28 19:33 | EDDOCDS ---
Nurse's Notes [facility] Name: Kasia Sandoval Age: 81 yrs Sex: Female : 1935 Arrival Date: 05/26/2016 Time: 11:20 Bed 2 Private MD: Warren Marx MD Diagnosis: Unspecified atrial flutter;Other disorders of lung-right lung mass with hilar adenopathy and consolidation Presentation: 05/26 11:22 Presenting complaint: Patient states: states increased SOB with exertion. Adult Sepsis ml6 Screening: The patient does not have new or worsening altered mentation. Patient's respiratory rate is less than 22. Systolic blood pressure is greater than 100. Patient has a qSOFA score of 0- Negative Sepsis Screen. Suicide/Homicide risk assessment- the patient denies having any suicidal and/or homicidal ideations and does not present with any other emotional, behavioral or mental health complaints. 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 Transition of care: patient was not received from another setting of care. Red Flag criteria, patient assessed and taken directly to a bed. 11:22 Method Of Arrival: Walkin/Carried/Asstd ml6 11:22 Acuity: ILDA Level 2 ml6 Triage Assessment: 11:47 General: Appears in no apparent distress, Behavior is appropriate for age, cooperative. ml6 Pain: Denies pain. Neurological: No deficits noted. Level of Consciousness is awake, alert, Oriented to person, place, time. Cardiovascular: No deficits noted. Capillary refill < 3 seconds is brisk in bilateral fingers toes. Respiratory: No deficits noted. Airway is patent Respiratory effort is even, unlabored, Respiratory pattern is regular, symmetrical, Breath sounds are clear bilaterally. GI: Reports nausea, vomiting. Historical: - Allergies: Levaquin (Hives); - Home Meds: 1. Ambien 5 mg Oral tab 1 tab once daily (Last dose: Unknown) 2. bupropion HCl 100 mg Oral TbER 1 tab once daily (Last dose: Unknown) 3. levothyroxine 75 mcg Oral cap 1 cap once daily (Last dose: Unknown) 4. Vitamin D Oral 95710 unit every other week (Last dose: Unknown) - PMHx: Hypothyroidism; - PSHx: Tubal ligation; - Social history: Smoking status: Patient states was never smoker of tobacco. No barriers to communication noted, Speaks appropriately for age. - Family history: Not pertinent. - : The pt / caregiver states he / she is not on anticoagulants. Home medication list is obtained from the patient. - Exposure Risk Screening:: None identified. Screenin:00 Screening information is obtained from the patient. Fall risk: No risks identified. jmk Assistance ADL's: requires no assistance with activities of daily living. Abuse/DV Screen: The patient / caregiver reports he/she is: not in a situation that causes fear, pain or injury. Nutritional screening: No deficits noted. Advance Directives: Currently, there is a health care proxy, spouse, adriana. There is an active DNR order There is a living will, There is an active Power of Data Storage Specialist, spouse, adriana. home support is adequate. Assessment: 12:27 General: Appears skin warm and dry color sliglty pale. conversing lengthy sentences jmk without resp interruption. chest CTA, no work of breathing noted. denies pain. reports sensation of fatigue with slightly full sensation to chest. Monitor is aflutter with RVR. lopressor administered with complaint of slight nausea with process. medicated as per order. . Cardiovascular: Capillary refill < 3 seconds Clubbing of nail beds is absent Heart tones S1 S2 present Edema is absent. Rhythm is atrial flutter Chest pain is denied. Respiratory: Airway is patent Respiratory effort is even, unlabored, Respiratory pattern is regular, Breath sounds are clear bilaterally. GI: Abdomen is flat, non- distended Bowel sounds present X 4 quads. 15:05 General: Appears monitor is a flutter with rate of 118. without pain. nausea is jmk resolved. + overall fatigue. No observed resp distress. 17:42 General: Appears without pain. fatigue is major concern. Monitor is sfib. rate 133. sl jmk intact. Vancomycin infusing. Vital Signs: 11:22 BP 139 / 80 RA Sitting (auto/reg); Pulse 176; Resp 20; Temp 97.2(O); Pulse Ox 97% ; jrd Weight 68.04 kg; Height 5 ft. 6 in. (167.64 cm) (R); Pain 6/10; 12:00 BP 135 / 94 (auto/); jmk 12:00 Pulse 175 MON; Pulse Ox 99% ; jmk 12:07 BP 127 / 85 (auto/); jmk 12:07 Pulse 170 MON; Pulse Ox 98% ; jmk 12:12 BP 103 / 73 (auto/); jmk 12:12 Pulse 168 MON; Pulse Ox 98% ; jmk 12:15 BP 112 / 79 (auto/); jmk 12:15 Pulse 165 MON; Pulse Ox 98% ; jmk 14:15 BP 111 / 81 (auto/); jmk 14:15 Pulse 165 MON; Pulse Ox 98% ; jmk 14:30 BP 141 / 63 (auto/); jmk 14:30 Pulse 122 MON; Pulse Ox 99% ; jmk 14:45 BP 140 / 66 (auto/); jmk 14:45 Pulse 112 MON; Pulse Ox 99% ; jmk 15:00 BP 140 / 65 (auto/); jmk 15:00 Pulse 123 MON; Pulse Ox 99% ; jmk 15:14 Pulse 134 MON; Pulse Ox 99% ; jmk 15:15 BP 151 / 74 (auto/); Resp 16; jmk 15:29 Pulse 135 MON; Pulse Ox 98% ; jmk 15:30 BP 148 / 96 (auto/); jmk 15:45 BP 150 / 108 (auto/); jmk 15:45 Pulse 134 MON; Pulse Ox 99% ; jmk 17:25 BP 127 / 74 (auto/); jmk 17:25 Pulse 165 MON; Resp 16; jmk 18:30 BP 127 / 74; Pulse 118; Resp 18; Temp 98.5; Pulse Ox 98% on 3 lpm NC; jmk 11:22 Body Mass Index 24.21 (68.04 kg, 167.64 cm) [facility] Vitals: 11:22 Log In Time: May 26, 2016 at 11:02. jrd 11:22 RN notified that patient meets Red Flag criteria. jrd ED Course: 11:22 Patient visited by Warren Mayes PCA. jrd 11:22 Warren Marx is Private Physician. jrd 11:22 Patient moved to Waiting jrd 11:24 Patient visited by Warren Mayes PCA. jrd 11:27 Patient moved to 2 jrd 11:30 Janice Garcia MD is Attending Physician. sd1 11:30 Patient visited by Janice Garcia MD. sd1 11:36 EKG done. (by ED staff). Reviewed by Janice Garcia MD. jml1 11:37 Patient visited by Andrew Sargent. jml1 11:44 Triage Initiated ml6 11:47 BNP Sent. jmk 11:47 Lactic Acid (Hooper tube on ice) Sent. jmk 11:47 -Blood Culture Sent. jmk 11:47 BMP Sent. jmk 11:47 CBC with Diff Sent. jmk 11:47 Troponin Sent. jmk 11:47 CIP Sent. jmk 12:00 The patient / caregiver is instructed regarding the plan of care and ED course. Cardiac jmk monitor on. Pulse ox on. 12:00 Inserted saline lock: 20 gauge in left antecubital area. jmk 12:20 [facility] Payment Agreement was scanned into [employer] and attached to record. lg 12:26 THYROID PROFILE Sent. jmk 12:26 MAGNESIUM LEVEL Sent. jmk 12:27 Chest, 1 View Returned. EDMS 13:18 Patient visited by Andrew Sargent. jml1 13:25 Speedy Renteria is Hospitalizing Provider. sd1 13:56 Admission Orders was scanned into [employer] and attached to record. mt4 15:46 T-Sheet-- Draft Copy was scanned into [employer] and attached to record. gb 17:02 Patient visited by Warren Mayes PCA. jrsteffen 17:43 Patient visited by Brian Hooker,HONEY. liz Administered Medications: 12:00 Drug: Metoprolol 5 mg [metoprolol 5 mg/5 mL intravenous solution (5 mL)] Route: IVP; dionicio Site: left antecubital; 12:02 Drug: Metoprolol 5 mg [metoprolol 5 mg/5 mL intravenous solution (5 mL)] Route: IVP; liz Site: left antecubital; 12:11 Drug: Ondansetron 4 mg Route: IVP; Site: left antecubital; k 12:17 Drug: Metoprolol 5 mg [metoprolol 5 mg/5 mL intravenous solution (5 mL)] Route: IVP; liz Site: left antecubital; 12:40 Drug: Metoprolol (Tartrate) 25 mg Route: PO; jmk 12:56 Drug: cefTRIAXone 1 grams Route: IVPB; Infused Over: 30 mins; Site: left antecubital; k 13:00 Drug: NS 0.9% 1000 ml Route: IV; Rate: 150 mL/hr; Site: left antecubital; k 14:22 Drug: NS 0.9% 500 ml Route: IV; Rate: bolus; Site: left antecubital; k 17:40 Drug: Diltiazem 10 mg [diltiazem 5 mg/mL intravenous solution (2 mL)] Route: IVP; Site: [facility] left antecubital; 17:42 Drug: NS 0.9% 500 ml Route: IV; Rate: bolus; Site: left antecubital; [facility] Intake: 17:49 IV: 1000.00ml (NS); Total: 1000.00ml. k 18:31 IV: 250.00ml (NS); Total: 1250.00ml. [facility] Order Results: Lab Order: [facility]; SPEC'M 05/26/16 11:43 Test: GLUCOSE, FASTING; Value: 141; Range: 83-110; Abnormal: Above high normal; Units: MG/DL; Status: F Test: BLOOD UREA NITROGEN; Value: 29; Range: 7-18; Abnormal: Above high normal; Units: MG/DL; Status: F Test: CREATININE FOR GFR; Value: 0.78; Range: 0.55-1.02; Units: MG/DL; Status: F Test: GLOMERULAR FILTRATION RATE; Value: > 60.0; Range: >32; Status: F Test: SODIUM LEVEL; Value: 135; Range: 136-145; Abnormal: Below low normal; Units: MEQ/L; Status: F Test: POTASSIUM SERUM; Value: 4.1; Range: 3.5-5.1; Units: MEQ/L; Status: F Test: CHLORIDE LEVEL; Value: 99; Range: 98-107; Units: MEQ/L; Status: F Test: CARBON DIOXIDE LEVEL; Value: 25; Range: 21-32; Units: MEQ/L; Status: F Test: ANION GAP; Value: 11; Range: 8-16; Units: MEQ/L; Status: F Test: CALCIUM LEVEL; Value: 9.7; Range: 8.8-10.2; Units: MG/DL; Status: F Test Note: ; Units are mL/min/1.73 m2 Chronic Kidney Disease Staging per NKF: Stage I & II GFR >=60 Normal to Mildly Decreased Stage III GFR 30-59 Moderately Decreased Stage IV GFR 15-29 Severely Decreased Stage V GFR <15 Very Little GFR Left ESRD GFR <15 on CAST IRON DIPPER Lab Order: CBC with Diff; [facility] 05/26/16 11:43 Test: WHITE BLOOD COUNT; Value: 12.7; Range: 4.0-10.0; Abnormal: Above high normal; Units: K/mm3; Status: F Test: RED BLOOD COUNT; Value: 4.16; Range: 4.00-5.40; Units: M/mm3; Status: F Test: HEMOGLOBIN; Value: 12.8; Range: 12.0-16.0; Units: g/dl; Status: F Test: HEMATOCRIT; Value: 37.9; Range: 36.0-47.0; Units: %; Status: F Test: MEAN CORPUSCULAR VOLUME; Value: 91.2; Range: 80.0-96.0; Units: fl; Status: F Test: MEAN CORPUSCULAR HEMOGLOBIN; Value: 30.8; Range: 27.0-33.0; Units: pg; Status: F Test: MEAN CORPUSCULAR HGB CONC; Value: 33.8; Range: 32.0-36.5; Units: g/dl; Status: F Test: RED CELL DISTRIBUTION WIDTH; Value: 12.6; Range: 11.5-14.5; Units: %; Status: F Test: PLATELET COUNT, AUTOMATED; Value: 463; Range: 150-450; Abnormal: Above high normal; Units: k/mm3; Status: F Test: NEUTROPHILS %; Value: 86.6; Range: 36.0-66.0; Abnormal: Above high normal; Units: %; Status: F Test: LYMPH %; Value: 6.1; Range: 24.0-44.0; Abnormal: Below low normal; Units: %; Status: F Test: MONO %; Value: 5.5; Range: 0.0-5.0; Abnormal: Above high normal; Units: %; Status: F Test: EOS %; Value: 0.8; Range: 0.0-3.0; Units: %; Status: F Test: BASO %; Value: 0.1; Range: 0.0-1.0; Units: %; Status: F Test: LARGE UNSTAINED CELL %; Value: 0.9; Range: 0.0-4.0; Units: %; Status: F Test: NEUTROPHILS #; Value: 11.0; Range: 1.8-7.7; Abnormal: Above high normal; Units: K/mm3; Status: F Test: LYMPH #; Value: 0.9; Range: 1.5-4.5; Abnormal: Below low normal; Units: K/mm3; Status: F Test: MONO #; Value: 0.7; Range: 0.0-0.8; Units: K/mm3; Status: F Test: EOS #; Value: 0.1; Range: 0.0-0.50; Units: K/mm3; Status: F Test: BASO #; Value: 0.0; Range: 0.0-0.2; Units: K/mm3; Status: F Test: LARGE UNSTAINED CELL #; Value: 0.1; Range: 0.0-0.4; Units: K/mm3; Status: F Lab Order: CIP; SPEC'M 05/26/16 11:43 Test: CPK CREATINE PHOSPHOKINASE; Value: 28; Range: 26-192; Units: U/L; Status: F Test: CK-MB VALUE MASS; Value: 1.0; Range: 0.0-3.6; Units: NG/ML; Status: F Test: MB/CK RELATIVE INDEX; Value: 3.57; Range: < OR =4; Status: F Test Note: ; DIAGNOSIS CRITERIA MMB ng/ml Relative Index (RI) NON-AMI < or = 5 N/A HOOPER ZONE > 5 < or = 4 AMI > 5 > 4 Lab Order: Troponin; SPEC'M 05/26/16 11:43 Test: TROPONIN I; Value: 0.02; Range: < 0.10; Units: NG/ML; Status: F Test Note: ; Troponin I Reference Interval for Thumbs Up LOCI: 99th Percentile= 0.00-0.045 ng/ml Risk Stratification: <= 0.10 ng/ml Decreased Risk for Adverse Clinical Events. 0.10-1.50 ng/ml Increased Risk for Adverse Clinical Events. Evaluation of additional criterion and/or repeat testing in 2-6 hours is suggested to rule out myocardial damage. >= 1.50 ng/ml Indicative of Myocardial Injury. Lab Order: Lactic Acid (Hooper tube on ice); [facility] 05/26/16 11:43 Test: LACTIC ACID SEPSIS PROTOCOL; Value: 2.1; Range: 0.4-2.0; Abnormal: Above upper panic limits; Units: MMOL/L; Status: F Lab Order: BNP; [facility] 11:43 Test: BRAIN NATRIURETIC PEPTIDE; Value: 431; Range: <100; Abnormal: Above high normal; Units: PG/ML; Status: F Lab Order: RESPIRATORY PANEL; [facility] 05/26/16 12:03 Test: RESPIRATORY PANEL; Value: RP PANEL RESULT NEGATIVE by PCR; Status: F Test: RESPIRATORY PANEL; Value: Comments:; Status: F Test Note: ; This respiratory PCR panel detects Influenza A H1, H3 and 2009 H1 viruses, Influenza B virus, Respiratory syncytial virus, Human metapneumovirus, Parainfluenza virus 1, 2, 3 and 4, Adenovirus, Rhinovirus/Enterovirus, Coronavirus HKU1, NL63, OC43 and 229E, Bordetella pertussis, Mycoplasma pneumoniae and Chlamydia pneumoniae. Lab Order: MAGNESIUM LEVEL; [facility] 05/26/16 11:43 Test: MAGNESIUM LEVEL; Value: 2.1; Range: 1.8-2.4; Units: MG/DL; Status: F Lab Order: THYROID PROFILE; [facility] 05/26/16 11:43 Test: T UPTAKE; Value: 37; Range: 30-39; Units: %; Status: F Test: THYROXINE (T4); Value: 9.2; Range: 4.5-12.0; Units: UG/DL; Status: F Test: FREE THYROXINE INDEX; Value: 3.4; Range: 1.3-4.8; Units: %; Status: F Test: THYROID STIMULATING HORMONE; Value: 1.640; Range: 0.358-3.740; Units: uIU/ML; Status: F Radiology Order: Chest, 1 View Test: Chest, 1 View REASON FOR EXAMINATION: tachycardia; Clinical: Tachycardia.; ; Technique: Portable examination.; ; Comparison: 05/24/2016.; ; Findings:; Hilar adenopathy and right lower lobe mass with associated right lower lobe; infiltrates similar to prior examination. Mediastinum and cardiac silhouette; stable with mild cardiomegaly again suggested. No pneumothorax. Skeletal; structures intact.; ; Impression:; Hilar adenopathy and right lower lobe mass with right lower lobe consolidation.; ; ; Signed by; Bhavesh Dillard MD 05/26/2016 12:05 P; Outcome: 13:26 Decision to Hospitalize by Provider. sd1 18:28 Discharge Assessment: Patient awake, alert and oriented x 3. No cognitive and/or k functional deficits noted. Patient verbalized understanding of disposition instructions. patient administered narcotics - no. The following High Risk Discharge criteria are identified: None. Admitted to PCU accompanied by nurse, accompanied by tech, via stretcher, on monitor, with chart. Condition: improved. No special radiology studies were completed. Admission hand-off: Report called to jossy whitehead. Property :Personal belongings accompany Pt. 18:32 Patient left the ED. adriel Signatures: Dispatcher [employer] EDMS Janice Garcia MD MD sd1 Brian Hooker,RN RN Reena Woodard, Reg Reg gb Willie Grier, Reg Reg lg Cami Prater mt4 Anibal Heredia, RN RN ml6 Andrew Sargent jml1 Warren Mayes, HELEN MUD MIXER OPERATOR jrd Corrections: (The following items were deleted from the chart) 12:00 11:47 THYROID PROFILE+LAB sent. [facility] ED[place] 12:00 11:47 MAGNESIUM LEVEL+LAB sent. [facility] ED[facility] Chart Complete MTDD
--- NOTE | 2016-05-28 19:33 | EDDOCDS ---
Physician Documentation [facility] Name: Kasia Sandoval Age: 81 yrs Sex: Female : 1935 Arrival Date: 05/26/2016 Time: 11:20 Bed 2 Private MD: Warren Marx MD Disposition: 05/26/16 13:26 Hospitalization ordered by Speedy Renteria for Inpatient Admission. 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 - Bed requested for PCU. - Status is Inpatient Admission. jmk - Condition is Stable. - Problem is new. - Symptoms are unchanged. Historical: - Allergies: Levaquin (Hives); - Home Meds: 1. Ambien 5 mg Oral tab 1 tab once daily (Last dose: Unknown) 2. bupropion HCl 100 mg Oral TbER 1 tab once daily (Last dose: Unknown) 3. levothyroxine 75 mcg Oral cap 1 cap once daily (Last dose: Unknown) 4. Vitamin D Oral 17375 unit every other week (Last dose: Unknown) - PMHx: Hypothyroidism; - PSHx: Tubal ligation; - Social history: Smoking status: Patient states was never smoker of tobacco. No barriers to communication noted, Speaks appropriately for age. - Family history: Not pertinent. - : The pt / caregiver states he / she is not on anticoagulants. Home medication list is obtained from the patient. - Exposure Risk Screening:: None identified. Vital Signs: 05/26 11:22 BP 139 / 80 RA Sitting (auto/reg); Pulse 176; Resp 20; Temp 97.2(O); Pulse Ox 97% ; jrd Weight 68.04 kg / 150 lbs; Height 5 ft. 6 in. (167.64 cm) (R); Pain 6/10; 12:00 BP 135 / 94 (auto/); jmk 12:00 Pulse 175 MON; Pulse Ox 99% ; jmk 12:07 BP 127 / 85 (auto/); jmk 12:07 Pulse 170 MON; Pulse Ox 98% ; jmk 12:12 BP 103 / 73 (auto/); jmk 12:12 Pulse 168 MON; Pulse Ox 98% ; jmk 12:15 BP 112 / 79 (auto/); jmk 12:15 Pulse 165 MON; Pulse Ox 98% ; jmk 14:15 BP 111 / 81 (auto/); jmk 14:15 Pulse 165 MON; Pulse Ox 98% ; jmk 14:30 BP 141 / 63 (auto/); jmk 14:30 Pulse 122 MON; Pulse Ox 99% ; jmk 14:45 BP 140 / 66 (auto/); jmk 14:45 Pulse 112 MON; Pulse Ox 99% ; jmk 15:00 BP 140 / 65 (auto/); jmk 15:00 Pulse 123 MON; Pulse Ox 99% ; jmk 15:14 Pulse 134 MON; Pulse Ox 99% ; jmk 15:15 BP 151 / 74 (auto/); Resp 16; jmk 15:29 Pulse 135 MON; Pulse Ox 98% ; jmk 15:30 BP 148 / 96 (auto/); jmk 15:45 BP 150 / 108 (auto/); jmk 15:45 Pulse 134 MON; Pulse Ox 99% ; jmk 17:25 BP 127 / 74 (auto/); jmk 17:25 Pulse 165 MON; Resp 16; jmk 18:30 BP 127 / 74; Pulse 118; Resp 18; Temp 98.5; Pulse Ox 98% on 3 lpm NC; jmk 11:22 Body Mass Index 24.21 (68.04 kg, 167.64 cm) jrd MDM: 11:34 Rn Transplant/Pulse Ox/q 30 min VS ordered. ml6 11:34 Oxygen at 2L/min via NC ordered. ml6 11:34 IV Saline Lock ordered. ml6 11:34 Undress patient appropriately for examination ordered. ml6 11:34 ECG WITH READING ER PHYS+CARDIAG ordered. EDMS 11:35 BMP Ordered. EDMS 11:35 CBC with Diff Ordered. EDMS 11:35 CIP Ordered. EDMS 11:35 Troponin Ordered. EDMS 11:35 Chest, 1 View Ordered. EDMS 11:39 -Blood Culture (Adults Only), peripheral from different site, or from device/port/PICC sd1 etc. if present ordered. 11:39 Lactic Acid (Hooper tube on ice) Ordered. EDMS 11:39 Misc. Nursing Order ordered. sd1 11:39 Metoprolol 5 mg IVP every 5 minutes; Hold for SBP < 100 or HR < 60. x3 ordered. sd1 11:39 -Blood Culture Ordered. EDMS 11:41 BNP Ordered. EDMS 11:41 BED REQUEST+ADM ordered. EDMS 11:53 RESPIRATORY PANEL Ordered. EDMS 11:54 -Blood Culture (Adults Only), peripheral from different site, or from device/port/PICC mt4 etc. if present complete. 11:54 Metoprolol (Tartrate) 25 mg PO once ordered. sd1 11:55 BLOOD CULTURES Ordered. EDMS 12:00 MAGNESIUM LEVEL Ordered. EDMS 12:00 THYROID PROFILE Ordered. EDMS 12:06 Financial registration complete. lg 12:09 Ondansetron 4 mg IVP once ordered. sd1 12:20 [facility] Payment Agreement was scanned into [employer] and attached to record. lg 12:35 BMP Reviewed. sd1 12:35 CBC with Diff Reviewed. sd1 12:35 BNP Reviewed. sd1 12:35 Troponin Reviewed. sd1 12:35 MAGNESIUM LEVEL Reviewed. sd1 12:35 Chest, 1 View Reviewed. sd1 12:36 cefTRIAXone 1 grams IVPB once over 30 mins; dilute in 50mL of NS or D5W ordered. sd1 12:48 BMP Reviewed. sd1 12:48 Lactic Acid (Hooper tube on ice) Reviewed. sd1 12:48 CIP Reviewed. sd1 12:48 Troponin Reviewed. sd1 12:48 MAGNESIUM LEVEL Reviewed. sd1 12:48 THYROID PROFILE Reviewed. sd1 12:48 NS 0.9% 1000 ml IV at 150 mL/hr continuous ordered. sd1 13:56 Admission Orders was scanned into [employer] and attached to record. mt4 14:12 Admission / Observation Status ordered. EDMS 14:12 ECHOCARD,DOPPLER/COLOR FLOW ordered. EDMS 14:12 REGULAR DIET ordered. EDMS 14:12 CARDIAC INJURY PROFILE Ordered. EDMS 14:12 TROPONIN Ordered. EDMS 14:13 VENOUS BLOOD GAS Ordered. EDMS 14:20 Admission / Observation Status ordered. EDMS 15:31 URINE STREP PNEUMONIAE ANTIGEN Ordered. EDMS 15:31 LEGIONELLA ANTIGEN URINE Ordered. EDMS 15:31 SPUTUM CULTURE AND GRAM STAIN Ordered. EDMS 15:46 T-Sheet-- Draft Copy was scanned into [employer] and attached to record. gb 17:40 Diltiazem 10 mg IVP once; administer over 2 minutes ordered. jmk 17:42 NS 0.9% 500 ml IV at bolus once ordered. jmk 17:42 NS 0.9% 500 ml IV at bolus once ordered. [facility] Administered Medications: 12:00 Drug: Metoprolol 5 mg [metoprolol 5 mg/5 mL intravenous solution (5 mL)] Route: IVP; [facility] Site: left antecubital; 12:02 Drug: Metoprolol 5 mg [metoprolol 5 mg/5 mL intravenous solution (5 mL)] Route: IVP; [facility] Site: left antecubital; 12:11 Drug: Ondansetron 4 mg Route: IVP; Site: left antecubital; [facility] 12:17 Drug: Metoprolol 5 mg [metoprolol 5 mg/5 mL intravenous solution (5 mL)] Route: IVP; [facility] Site: left antecubital; 12:40 Drug: Metoprolol (Tartrate) 25 mg Route: PO; [facility] 12:56 Drug: cefTRIAXone 1 grams Route: IVPB; Infused Over: 30 mins; Site: left antecubital; [facility] 13:00 Drug: NS 0.9% 1000 ml Route: IV; Rate: 150 mL/hr; Site: left antecubital; [facility] 14:22 Drug: NS 0.9% 500 ml Route: IV; Rate: bolus; Site: left antecubital; [facility] 17:40 Drug: Diltiazem 10 mg [diltiazem 5 mg/mL intravenous solution (2 mL)] Route: IVP; Site: [facility] left antecubital; 17:42 Drug: NS 0.9% 500 ml Route: IV; Rate: bolus; Site: left antecubital; [facility] Signatures: Dispatcher [employer] EDGA Janice Garcia MD MD sd1 Brian Hooker,RN RN k Reena Moise, Reg Reg gb Marvel, Willie, Reg Reg lg Moi, Cami mt4 Anibal Heredia, RN RN ml6 Derek Duque RN RN mts The chart was reviewed and I authenticate all verbal orders and agree with the evaluation and treatment provided.Corrections: (The following items were deleted from the chart) 12:00 11:39 MAGNESIUM LEVEL+LAB ordered. EDGA EDMS 12:00 11:39 THYROID PROFILE+LAB ordered. EDGA EDMS 12:46 12:20 Misc Job Captain Order ordered. sd1 mt4 16:28 14:12 LACTIC ACID LEVEL, LACTATE ordered. EDMS EDMS Attachments: 12:20 [facility] Payment Agreement lg 13:56 Admission Orders mt4 15:46 T-Sheet-- Draft Copy gb Chart Complete MTDD
--- NOTE | 2016-05-28 19:33 | EDDOCDS ---
Physician Documentation [facility] Name: Kasia Sandoval Age: 81 yrs Sex: Female : 1935 Arrival Date: 05/26/2016 Time: 11:20 Bed 2 Private MD: Warren Marx MD Disposition: 05/26/16 13:26 Hospitalization ordered by Speedy Renteria for Inpatient Admission. 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 - Bed requested for PCU. - Status is Inpatient Admission. jmk - Condition is Stable. - Problem is new. - Symptoms are unchanged. Historical: - Allergies: Levaquin (Hives); - Home Meds: 1. Ambien 5 mg Oral tab 1 tab once daily (Last dose: Unknown) 2. bupropion HCl 100 mg Oral TbER 1 tab once daily (Last dose: Unknown) 3. levothyroxine 75 mcg Oral cap 1 cap once daily (Last dose: Unknown) 4. Vitamin D Oral 46522 unit every other week (Last dose: Unknown) - PMHx: Hypothyroidism; - PSHx: Tubal ligation; - Social history: Smoking status: Patient states was never smoker of tobacco. No barriers to communication noted, Speaks appropriately for age. - Family history: Not pertinent. - : The pt / caregiver states he / she is not on anticoagulants. Home medication list is obtained from the patient. - Exposure Risk Screening:: None identified. Vital Signs: 05/26 11:22 BP 139 / 80 RA Sitting (auto/reg); Pulse 176; Resp 20; Temp 97.2(O); Pulse Ox 97% ; jrd Weight 68.04 kg / 150 lbs; Height 5 ft. 6 in. (167.64 cm) (R); Pain 6/10; 12:00 BP 135 / 94 (auto/); jmk 12:00 Pulse 175 MON; Pulse Ox 99% ; jmk 12:07 BP 127 / 85 (auto/); jmk 12:07 Pulse 170 MON; Pulse Ox 98% ; jmk 12:12 BP 103 / 73 (auto/); jmk 12:12 Pulse 168 MON; Pulse Ox 98% ; jmk 12:15 BP 112 / 79 (auto/); jmk 12:15 Pulse 165 MON; Pulse Ox 98% ; jmk 14:15 BP 111 / 81 (auto/); jmk 14:15 Pulse 165 MON; Pulse Ox 98% ; jmk 14:30 BP 141 / 63 (auto/); jmk 14:30 Pulse 122 MON; Pulse Ox 99% ; jmk 14:45 BP 140 / 66 (auto/); jmk 14:45 Pulse 112 MON; Pulse Ox 99% ; jmk 15:00 BP 140 / 65 (auto/); jmk 15:00 Pulse 123 MON; Pulse Ox 99% ; jmk 15:14 Pulse 134 MON; Pulse Ox 99% ; jmk 15:15 BP 151 / 74 (auto/); Resp 16; jmk 15:29 Pulse 135 MON; Pulse Ox 98% ; jmk 15:30 BP 148 / 96 (auto/); jmk 15:45 BP 150 / 108 (auto/); jmk 15:45 Pulse 134 MON; Pulse Ox 99% ; jmk 17:25 BP 127 / 74 (auto/); jmk 17:25 Pulse 165 MON; Resp 16; jmk 18:30 BP 127 / 74; Pulse 118; Resp 18; Temp 98.5; Pulse Ox 98% on 3 lpm NC; jmk 11:22 Body Mass Index 24.21 (68.04 kg, 167.64 cm) jrd MDM: 11:34 Mechanical Integrity Engineer/Pulse Ox/q 30 min VS ordered. ml6 11:34 Oxygen at 2L/min via NC ordered. ml6 11:34 IV Saline Lock ordered. ml6 11:34 Undress patient appropriately for examination ordered. ml6 11:34 ECG WITH READING ER PHYS+CARDIAG ordered. EDMS 11:35 BMP Ordered. EDMS 11:35 CBC with Diff Ordered. EDMS 11:35 CIP Ordered. EDMS 11:35 Troponin Ordered. EDMS 11:35 Chest, 1 View Ordered. EDMS 11:39 -Blood Culture (Adults Only), peripheral from different site, or from device/port/PICC sd1 etc. if present ordered. 11:39 Lactic Acid (Hooper tube on ice) Ordered. EDMS 11:39 Misc. Nursing Order ordered. sd1 11:39 Metoprolol 5 mg IVP every 5 minutes; Hold for SBP < 100 or HR < 60. x3 ordered. sd1 11:39 -Blood Culture Ordered. EDMS 11:41 BNP Ordered. EDMS 11:41 BED REQUEST+ADM ordered. EDMS 11:53 RESPIRATORY PANEL Ordered. EDMS 11:54 -Blood Culture (Adults Only), peripheral from different site, or from device/port/PICC mt4 etc. if present complete. 11:54 Metoprolol (Tartrate) 25 mg PO once ordered. sd1 11:55 BLOOD CULTURES Ordered. EDMS 12:00 MAGNESIUM LEVEL Ordered. EDMS 12:00 THYROID PROFILE Ordered. EDMS 12:06 Financial registration complete. lg 12:09 Ondansetron 4 mg IVP once ordered. sd1 12:20 [facility] Payment Agreement was scanned into [employer] and attached to record. lg 12:35 BMP Reviewed. sd1 12:35 CBC with Diff Reviewed. sd1 12:35 BNP Reviewed. sd1 12:35 Troponin Reviewed. sd1 12:35 MAGNESIUM LEVEL Reviewed. sd1 12:35 Chest, 1 View Reviewed. sd1 12:36 cefTRIAXone 1 grams IVPB once over 30 mins; dilute in 50mL of NS or D5W ordered. sd1 12:48 BMP Reviewed. sd1 12:48 Lactic Acid (Hooper tube on ice) Reviewed. sd1 12:48 CIP Reviewed. sd1 12:48 Troponin Reviewed. sd1 12:48 MAGNESIUM LEVEL Reviewed. sd1 12:48 THYROID PROFILE Reviewed. sd1 12:48 NS 0.9% 1000 ml IV at 150 mL/hr continuous ordered. sd1 13:56 Admission Orders was scanned into [employer] and attached to record. mt4 14:12 Admission / Observation Status ordered. EDMS 14:12 ECHOCARD,DOPPLER/COLOR FLOW ordered. EDMS 14:12 REGULAR DIET ordered. EDMS 14:12 CARDIAC INJURY PROFILE Ordered. EDMS 14:12 TROPONIN Ordered. EDMS 14:13 VENOUS BLOOD GAS Ordered. EDMS 14:20 Admission / Observation Status ordered. EDMS 15:31 URINE STREP PNEUMONIAE ANTIGEN Ordered. EDMS 15:31 LEGIONELLA ANTIGEN URINE Ordered. EDMS 15:31 SPUTUM CULTURE AND GRAM STAIN Ordered. EDMS 15:46 T-Sheet-- Draft Copy was scanned into [employer] and attached to record. gb 17:40 Diltiazem 10 mg IVP once; administer over 2 minutes ordered. jmk 17:42 NS 0.9% 500 ml IV at bolus once ordered. jmk 17:42 NS 0.9% 500 ml IV at bolus once ordered. [facility] Administered Medications: 12:00 Drug: Metoprolol 5 mg [metoprolol 5 mg/5 mL intravenous solution (5 mL)] Route: IVP; [facility] Site: left antecubital; 12:02 Drug: Metoprolol 5 mg [metoprolol 5 mg/5 mL intravenous solution (5 mL)] Route: IVP; [facility] Site: left antecubital; 12:11 Drug: Ondansetron 4 mg Route: IVP; Site: left antecubital; [facility] 12:17 Drug: Metoprolol 5 mg [metoprolol 5 mg/5 mL intravenous solution (5 mL)] Route: IVP; [facility] Site: left antecubital; 12:40 Drug: Metoprolol (Tartrate) 25 mg Route: PO; [facility] 12:56 Drug: cefTRIAXone 1 grams Route: IVPB; Infused Over: 30 mins; Site: left antecubital; [facility] 13:00 Drug: NS 0.9% 1000 ml Route: IV; Rate: 150 mL/hr; Site: left antecubital; [facility] 14:22 Drug: NS 0.9% 500 ml Route: IV; Rate: bolus; Site: left antecubital; [facility] 17:40 Drug: Diltiazem 10 mg [diltiazem 5 mg/mL intravenous solution (2 mL)] Route: IVP; Site: [facility] left antecubital; 17:42 Drug: NS 0.9% 500 ml Route: IV; Rate: bolus; Site: left antecubital; [facility] Signatures: Dispatcher [employer] EDWV Janice Garcia MD MD sd1 Brian Hooker,RN RN k Reena Moise, Reg Reg gb Marvel, Willie, Reg Reg lg Moi, Cami mt4 Anibal Heredia, RN RN ml6 Derek Duque RN RN mts The chart was reviewed and I authenticate all verbal orders and agree with the evaluation and treatment provided.Corrections: (The following items were deleted from the chart) 12:00 11:39 MAGNESIUM LEVEL+LAB ordered. EDWV EDMS 12:00 11:39 THYROID PROFILE+LAB ordered. EDWV EDMS 12:46 12:20 Misc Loss Prevention Analyst Order ordered. sd1 mt4 16:28 14:12 LACTIC ACID LEVEL, LACTATE ordered. EDMS EDMS Attachments: 12:20 [facility] Payment Agreement lg 13:56 Admission Orders mt4 15:46 T-Sheet-- Draft Copy gb Chart Complete MTDD
[2016-05-28] MEDS: LORazepam 2 MG/ML VIAL (J2060) IV PRN (20:05)
[2016-05-28] MEDS: zolPIDEM TARTRATE 5 MG TAB PO SCH (20:06)
[2016-05-29] VITALS (8 sets, daily range): BP systolic 112–151; BP diastolic 53–78
[2016-05-29] MEDS: PIPERACILLIN/TAZOBACTAM SOD 3.375 GM in D5W MINI-BAG PLUS 50 ML IV SCH ×4 (00:51→18:38)
--- NOTE | 2016-05-29 02:16 | IPN ---
DATE OF SERVICE: 05/28/2016 Mrs. Kasia Sandoval was seen yesterday because of atrial fibrillation/flutter with a rapid ventricular rate. Medications were readjusted in order to better control her ventricular rate. Her calcium channel sebastian was increased and she has received a couple doses of intravenous (IV) amiodarone and this morning, her heart rate is under better control. Her blood pressure also has improved. She stated this morning when I saw her that she feels much better. She denies any chest pain or shortness of breath, palpitations, dizziness. She has not been walking yet when I saw her. There is no report of bleeding. There is no focal manifestation. There is no nausea, vomiting, diarrhea, melena or hematemesis. PHYSICAL EXAMINATION: Patient is alert and oriented, in no acute distress at rest. Her vital signs when I saw her revealed a blood pressure of 131/66 with a pulse reported to be 58, respirations 20, and her maximum temperature was 98.1 degrees Fahrenheit with an oxygen saturation of 94% on room air. Examination of the head, ears, eyes, nose and throat: Atraumatic. Neck is supple. No jugular venous distention (JVD). The lungs revealed crackles of the right middle lung, as well as right base. No wheezing. The heart examination revealed irregular, irregular heart sounds without gallops. The point of maximal impulse (PMI) is not displaced. There is no rub. There is a systolic murmur grade 1-2 over 6 at the lower left sternal border without any significant radiation. Abdomen is unremarkable. Extremities reveal no pedal edema. Neurological examination is negative for focal deficit. LABORATORIES: CBC revealed a WBC of 11.5, hemoglobin 11.2, hematocrit 32.6, and platelets 442,000. BMP revealed a sodium of 134, potassium 3.2, chloride 100, CO2 25, BUN 22, creatinine 0.6, GFR more than 60, fasting glucose 138, and calcium 8.5. Serum magnesium is 1.9. Liver enzymes reveal a total bilirubin of 0.6, AST 16, ALT 13, alkaline phosphatase 75, total protein 5.9, albumin 2.7. Echocardiogram done on 05/26/2016, and reviewed on 05/27/2016, revealed a normal global left ventricular systolic function with just a small pericardial effusion, trace aortic regurgitation, mild mitral regurgitation, and moderate tricuspid regurgitation with mild to moderate hypertension. IMPRESSION: 1. Atrial flutter/fibrillation, newly diagnosed and now under control with current medications and she will continue the Cardizem at the same dose. In view of her overall cardiovascular risk factors and other comorbid condition, if there is no contraindication, she will benefit from chronic anticoagulation therapy and this will be discussed again with her. 2. Hypertension, under control. 3. Right lung mass and possible postobstructive pneumonia, being addressed. 4. History of smoking. 5. History of hypothyroidism, being addressed. It was a pleasure to participate in the care of Mrs. Kasia Sandoval for her underlying cardiac condition. I will continue to monitor along with you.
[2016-05-29] MEDS: VANCOMYCIN HCL 1,000 MG, VIAL MATE ADAPTER 1 EACH in D5W 250 ML IV SCH ×2 (04:04→16:40)
[2016-05-29] MEDS: HEPARIN SOD (PORCINE) 5000 UNITS/ML VIAL SQ SCH (04:04)
[2016-05-29 05:41] LABS: BASO % 0.2 % (0.0-1.0); EOS # 0.2 K/mm3 (0.0-0.50); EOS % 1.9 % (0.0-3.0); LARGE UNSTAINED CELL # 0.1 K/mm3 (0.0-0.4); LARGE UNSTAINED CELL % 0.5 % (0.0-4.0); LYMPH # 0.6 K/mm3 (1.5-4.5); LYMPH % 5.9 % (24.0-44.0); MEAN CORPUSCULAR HEMOGLOBIN 30.8 pg (27.0-33.0); MEAN CORPUSCULAR VOLUME 90.6 fl (80.0-96.0); MONO # 0.5 K/mm3 (0.0-0.8); MONO % 4.8 % (0.0-5.0); NEUTROPHILS # 8.5 K/mm3 (1.8-7.7); NEUTROPHILS % 86.6 % (36.0-66.0); PLATELET COUNT, AUTOMATED 401 k/mm3 (150-450); RED CELL DISTRIBUTION WIDTH 12.6 % (11.5-14.5); WHITE BLOOD COUNT 9.8 K/mm3 (4.0-10.0)
[2016-05-29 06:06] LABS: ALBUMIN 2.5 GM/DL (3.2-5.2); ALBUMIN/GLOBULIN RATIO 0.76 (1.00-1.93); ALKALINE PHOSPHATASE 79 U/L (45-117); ALT/SGPT 19 U/L (12-78); ANION GAP 11 MEQ/L (8-16); AST/SGOT 22 U/L (15-37); BLOOD UREA NITROGEN 20 MG/DL (7-18); CALCIUM LEVEL 8.5 MG/DL (8.8-10.2); CARBON DIOXIDE LEVEL 24 MEQ/L (21-32); CHLORIDE LEVEL 98 MEQ/L (98-107); CREATININE FOR GFR 0.68 MG/DL (0.55-1.02); GLOMERULAR FILTRATION RATE > 60.0 (>32); GLUCOSE, FASTING 151 MG/DL (83-110); MAGNESIUM LEVEL 1.9 MG/DL (1.8-2.4); POTASSIUM SERUM 3.4 MEQ/L (3.5-5.1); SODIUM LEVEL 133 MEQ/L (136-145); TOTAL PROTEIN 5.8 GM/DL (6.4-8.2)
[2016-05-29] MEDS: LEVOTHYROXINE 0.075 MG TAB (75 MCG) PO SCH (06:26)
[2016-05-29] MEDS: SLF 3 ML SYR IV SCH ×3 (06:26→20:53)
[2016-05-29] MEDS ORDERED: POTASSIUM CHLORIDE 10 MEQ SR TABLET PO ONE (07:45)
--- NOTE | 2016-05-29 08:46 | IPNPDOC ---
Subjective Date Seen The patient was seen on 05/29/16. Subjective Chief Complaint/HPI The patient is a 81-year-old female admitted with a reason for visit of Atrial Flutter With Rapid Ventricular Resp. Events since last encounter Seen this AM in the PCU. She feels much better today. Her HRs have been controlled in the 60s-70s. She's eager to go home and to investigate the etiology of her lung masses. She's been eating well. No cough. No fevers. General: Reports: Normal Appetite, Denies: Chills, Fatigue, Malaise, Night Sweats Constitutional: Denies: Chills, Fever, Night Sweats Skin: Denies: Breakdown, Lesions, Rash Pulmonary: Denies: Cough, Dyspnea Cardiovascular: Denies: Chest Pain, Lt Headedness, Orthopnea, Palpitations, Paroxysmal Noc. Dyspnea Gastrointestinal: Denies: Abdominal Pain, Constipation, Diarrhea, Nausea, Vomiting Hematologic: Denies: Bleeding Excessively, Bruising Neurological: Denies: Change in speech, Confusion, Numbness, Weakness Psych: Reports: Anxiety, Denies: Depression Objective Physical Examination General Exam: Positive: Alert, No Acute Distress Eye Exam: Positive: Conjunctiva & lids normal, EOMI, PERRLA, Negative: Sclera icteric ENT Exam: Positive: Atraumatic, Mucous membr. moist/pink, Pharynx Normal Neck Exam: Positive: Supple, Negative: JVD Chest Exam: Positive: Clear to auscultation, Normal air movement Heart Exam: Positive: Rate Normal, Regular Rhythm, Negative: Murmurs Telemetry: Positive: Atrial fibrillation Abdomen Exam: Positive: Normal bowel sounds, Soft, Negative: Hepatospenomegaly, Tenderness Extremity Exam: Positive: Normal pulses, Negative: Clubbing, Cyanosis, Edema Skin Exam: Positive: Nl turgor and temperature, Negative: Breakdown, Rash Assessment /Plan Problems (1) Atrial flutter with rapid ventricular response Status: Acute Discussed With: Other Discussed With: (Dr. Roa) Problem Specific Plan: Consult Specialist Problem Text: -Dr. Roa following, adjusting cardiac meds; appreciate his assistance. Cardizem has been increased. HRs have been in the 60s-70s. She's ambulating well. -Cardiac enzymes cycled, neg -Echo ordered -Oral diltiazem q6 c IV PRN HR>120 -TSH WNL -On subq heparin for anticoagulation, as she'll be getting lung bx today. 1mg/ kg bid lovenox after bx today. I've sent a script for Xarelto to her pharmacy and PFS has confirmed that the script did not require prior auth and will be available for her upon dc. Risk and benefits of chronic anticoagulation were discussed with the pt and family today. Her CHADS-Vasc2 score = 2, moderately high risk of thromboembolic phenomena. (2) Postobstructive pneumonia Status: Acute Problem Text: Improving, WBC normal. Bcx neg x 48h 2/2 recently dx lung masses. RVP neg On D4 Zosyn/Vanco, can probably be dc c augmentin/doxy Not requiring O2. Afebrile (3) Mass of lung Status: Acute Problem Text: Two masses noted in right lower lobe: one in the lateral basal segment 5.5 cm subpleural; other in medial basal segment also posteriorly lower of 5.5 x 4 cm These will both need to be bx; she has 58 yr h/o smoking. [address] guided bx ordered for today. Heparin on hold. Resume anticoagulation s/p bx (4) Hypothyroid Status: Acute Problem Text: Thyroid studies WNL upon admission. Continue synthroid (5) Anxiety Status: Acute Problem Text: Controlled at home on Wellbutrin. Lorazepam was added as needed, but she has not required any PRN doses. Plan/VTE VTE Prophylaxis Ordered?: Yes (heparin) Plan Diet: Continue Current Activity: Encourage Ambulation VS, I&O, 24H, Fishbone Vital Signs/I&O Vital Signs Date Time Temp Pulse Resp B/P Pulse Ox O2 Delivery O2 Flow Rate FiO2 05/29/16 08:39 Room Air 05/29/16 08:00 97.0 67 20 124/78 92 05/27/16 08:00 2.0 I&O- Last 24 Hours up to 6 AM 05/29/16 06:00 Intake Total 1200 ml Output Total 950 ml Balance 250 ml Laboratory Data 24H LABS Laboratory Tests 2 05/28/16 14:56: Vancomycin Level Trough 12.0 05/29/16 05:29: Blood Urea Nitrogen 20H, Creatinine 0.68, Sodium Level 133L, Potassium Level 3.4L, Chloride Level 98, Carbon Dioxide Level 24, Calcium Level 8.5L, Aspartate Amino Transf (AST/SGOT) 22, Alanine Aminotransferase (ALT/SGPT) 19, Alkaline Phosphatase 79, Total Bilirubin 1.0#, Total Protein 5.8L, Albumin 2.5L, Albumin/ Globulin Ratio 0.76L, Anion Gap 11, Glomerular Filtration Rate > 60.0, Magnesium Level 1.9 05/29/16 05:30: White Blood Count 9.8, Red Blood Count 3.53L, Hemoglobin 10.9L, Hematocrit 31.9L , Mean Corpuscular Volume 90.6, Mean Corpuscular Hemoglobin 30.8, Mean Corpuscular Hemoglobin Concent 34.0, Red Cell Distribution Width 12.6, Platelet Count 401, Neutrophils (%) (Auto) 86.6H, Lymphocytes (%) (Auto) 5.9L, Monocytes (%) (Auto) 4.8, Eosinophils (%) (Auto) 1.9, Basophils (%) (Auto) 0.2, Neutrophils # (Auto) 8.5H, Lymphocytes # (Auto) 0.6L, Monocytes # (Auto) 0.5, Eosinophils # (Auto) 0.2, Basophils # (Auto) 0.0, Large Unclassified Cells # 0.1 , Large Unclassified Cells % 0.5 CBC/BMP Laboratory Tests 05/29/16 05:29 Calcium Level 8.5 L, Aspartate Amino Transf (AST/SGOT) 22, Alanine Aminotransferase (ALT/SGPT) 19, Alkaline Phosphatase 79, Total Bilirubin 1.0 #, Total Protein 5.8 L, Albumin 2.5 L 05/29/16 05:30 Red Blood Count 3.53 L, Mean Corpuscular Volume 90.6, Mean Corpuscular Hemoglobin 30.8, Mean Corpuscular Hemoglobin Concent 34.0, Red Cell Distribution Width 12.6, Neutrophils (%) (Auto) 86.6 H, Lymphocytes (%) (Auto) 5.9 L, Monocytes (%) (Auto) 4.8, Eosinophils (%) (Auto) 1.9, Basophils (%) (Auto ) 0.2, Neutrophils # (Auto) 8.5 H, Lymphocytes # (Auto) 0.6 L, Monocytes # (Auto ) 0.5, Eosinophils # (Auto) 0.2, Basophils # (Auto) 0.0 Microbiology Microbiology 05/26/16 Blood Culture - Preliminary, Resulted No Growth after 48 hours. All Specime... 05/26/16 Blood Culture - Preliminary, Resulted No Growth after 48 hours. All Specime... 05/26/16 Respiratory Virus Panel (PCR) (ISELA) - Final, Complete THEA SWAN DO May 29, 2016 08:46
[2016-05-29] MEDS: buPROPion (WELLBUTRIN SR) 100 MG SR TAB PO SCH (08:50)
[2016-05-29] MEDS ORDERED: XARE20TA PO (09:22)
[2016-05-29] MEDS ORDERED: LIDOCAINE 1% MDV 20ML VIAL As Ordered ONE ×2 (11:30→14:47)
--- NOTE | 2016-05-29 16:48 | REP ---
CT GUIDED RIGHT LOWER LOBE LUNG BIOPSY: The procedure was performed under the direct supervision of Dr. Willson. The patient has a history of a multinodular right lower lobe lung mass seen on a previous CT scan dated 05/24/2016. The risks and benefits of the procedure were explained to the patient and informed consent was obtained. The right lower lobe lung mass was localized using CT guidance. The skin was prepped and draped in a sterile fashion. 1% Xylocaine was used as a local anesthetic. Using CT guidance a 19/20-gauge coaxial needle biopsy system was inserted and advanced into the mass. Five core biopsy samples were obtained and sent to the lab. The patient tolerated the procedure well and there were no immediate complications. Reviewed by ALEKSANDER Hawkins 05/29/2016 04:49 PEdited and Signed by Shalom Willson MD 05/29/2016 05:19 P
--- NOTE | 2016-05-29 18:13 | REP ---
Clinical: Post biopsy evaluation for pneumothorax. Comparison: 05/26/2016. Findings: Diffuse chronic interstitial changes and fibrosis noted with superimposed infiltrate and right lower lobe mass similar to prior examinations. No pneumothorax. Mediastinum and cardiac silhouette stable. Impression: No pneumothorax. Chronic changes with superimposed right-sided infiltrate and mass. Signed by Bhavesh Dillard MD 05/29/2016 06:05 P
[2016-05-29] MEDS: ENOXAPARIN 80 MG/0.8 ML SYRINGE (J1650) SC SCH (20:52)
[2016-05-29] MEDS: zolPIDEM TARTRATE 5 MG TAB PO SCH (20:53)
[2016-05-30 00:07] LABS: ORGANISM ID Not indicated. (.); SPECIMEN SOURCE Urine (.)
[2016-05-30] MEDS: PIPERACILLIN/TAZOBACTAM SOD 3.375 GM in D5W MINI-BAG PLUS 50 ML IV SCH ×4 (00:40→18:14)
[2016-05-30 03:33] VITALS: BP 134/64
[2016-05-30] MEDS: VANCOMYCIN HCL 1,000 MG, VIAL MATE ADAPTER 1 EACH in D5W 250 ML IV SCH ×2 (04:07→15:59)
[2016-05-30 05:58] LABS: BASO % 0.1 % (0.0-1.0); EOS # 0.1 K/mm3 (0.0-0.50); EOS % 0.8 % (0.0-3.0); LARGE UNSTAINED CELL # 0.1 K/mm3 (0.0-0.4); LARGE UNSTAINED CELL % 0.7 % (0.0-4.0); LYMPH # 0.7 K/mm3 (1.5-4.5); LYMPH % 6.4 % (24.0-44.0); MEAN CORPUSCULAR HEMOGLOBIN 30.4 pg (27.0-33.0); MEAN CORPUSCULAR HGB CONC 34.1 g/dl (32.0-36.5); MEAN CORPUSCULAR VOLUME 89.3 fl (80.0-96.0); MONO # 0.6 K/mm3 (0.0-0.8); MONO % 6.4 % (0.0-5.0); NEUTROPHILS # 8.2 K/mm3 (1.8-7.7); NEUTROPHILS % 85.6 % (36.0-66.0); PLATELET COUNT, AUTOMATED 405 k/mm3 (150-450); RED CELL DISTRIBUTION WIDTH 12.9 % (11.5-14.5); WHITE BLOOD COUNT 9.6 K/mm3 (4.0-10.0)
[2016-05-30 06:13] LABS: ALBUMIN 2.6 GM/DL (3.2-5.2); ALBUMIN/GLOBULIN RATIO 0.74 (1.00-1.93); ALKALINE PHOSPHATASE 88 U/L (45-117); ALT/SGPT 21 U/L (12-78); ANION GAP 8 MEQ/L (8-16); AST/SGOT 18 U/L (15-37); BILIRUBIN,TOTAL 0.9 MG/DL (0.2-1.0); BLOOD UREA NITROGEN 17 MG/DL (7-18); CALCIUM LEVEL 8.7 MG/DL (8.8-10.2); CARBON DIOXIDE LEVEL 27 MEQ/L (21-32); CHLORIDE LEVEL 97 MEQ/L (98-107); CREATININE FOR GFR 0.69 MG/DL (0.55-1.02); GLOMERULAR FILTRATION RATE > 60.0 (>32); GLUCOSE, FASTING 144 MG/DL (83-110); MAGNESIUM LEVEL 1.7 MG/DL (1.8-2.4); POTASSIUM SERUM 3.3 MEQ/L (3.5-5.1); SODIUM LEVEL 132 MEQ/L (136-145); TOTAL PROTEIN 6.1 GM/DL (6.4-8.2)
[2016-05-30] MEDS: LEVOTHYROXINE 0.075 MG TAB (75 MCG) PO SCH (06:26)
[2016-05-30] MEDS: SLF 3 ML SYR IV SCH ×3 (06:27→21:02)
[2016-05-30] MEDS ORDERED: POTASSIUM CHLORIDE 10 MEQ SR TABLET PO ONE ×2 (07:00→11:00)
[2016-05-30 08:00] VITALS: BP 158/88
[2016-05-30] MEDS: ENOXAPARIN 80 MG/0.8 ML SYRINGE (J1650) SC SCH (08:41)
[2016-05-30] MEDS: SPIRONOLACTONE 25 MG TAB PO SCH (08:41)
[2016-05-30] MEDS: MAGNESIUM OXIDE 400 MG TAB (MAG-OX) PO SCH ×2 (08:42→21:02)
[2016-05-30] MEDS: buPROPion (WELLBUTRIN SR) 100 MG SR TAB PO SCH (08:42)
--- NOTE | 2016-05-30 10:29 | IPNPDOC ---
Subjective Date Seen The patient was seen on 05/30/16. Subjective Chief Complaint/HPI Pt is feeling better, she does c/o some nausea though. Denies vomiting. General: Reports: Fatigue Constitutional: Denies: Chills, Fever Pulmonary: Reports: Cough, Denies: Dyspnea Cardiovascular: Denies: Chest Pain, Orthopnea, Palpitations Gastrointestinal: Reports: Nausea, Denies: Diarrhea, Vomiting Neurological: Reports: Weakness Psych: Reports: Mood Normal Objective Physical Examination General Exam: Positive: Alert, No Acute Distress Eye Exam: Negative: Sclera icteric ENT Exam: Positive: Mucous membr. moist/pink, Pharynx Normal Neck Exam: Positive: Supple, Negative: JVD Chest Exam: Positive: Clear to auscultation, Normal air movement Heart Exam: Positive: Irregular Rhythm, Tachycardic (rate 110 at exam), Negative: Murmurs Telemetry: Positive: Atrial fibrillation Abdomen Exam: Positive: Normal bowel sounds, Soft, Negative: Hepatospenomegaly, Tenderness Extremity Exam: Positive: Normal pulses, Negative: Clubbing, Cyanosis, Edema Skin Exam: Positive: Nl turgor and temperature, Negative: Breakdown, Rash Assessment /Plan Problems (1) Atrial flutter with rapid ventricular response Status: Acute Discussed With: Other Discussed With: (Dr. Roa) Problem Specific Plan: Consult Specialist Problem Text: 05/30 - Dr Roa did not see pt this morning, no notes from Cardio available from yesterday either. her rates really are not ideally controlled, Xarelto sent to pharm, and is covered, will change to Xarelto today. I have reached out to Dr Roa to see what he wants to do about her rate control. 05/29 -Dr. Roa following, adjusting cardiac meds; appreciate his assistance. Cardizem has been increased. HRs have been in the 60s-70s. She's ambulating well. -Cardiac enzymes cycled, neg -Echo ordered -Oral diltiazem q6 c IV PRN HR>120 -TSH WNL -On subq heparin for anticoagulation, as she'll be getting lung bx today. 1mg/ kg bid lovenox after bx today. I've sent a script for Xarelto to her pharmacy and PFS has confirmed that the script did not require prior auth and will be available for her upon dc. Risk and benefits of chronic anticoagulation were discussed with the pt and family today. Her CHADS-Vasc2 score = 2, moderately high risk of thromboembolic phenomena. (2) Postobstructive pneumonia Status: Acute Problem Text: Improving, WBC normal. Bcx neg x 48h 2/2 recently dx lung masses. RVP neg On D5 Zosyn/Vanco, can probably be dc c augmentin/doxy Not requiring O2. Afebrile (3) Mass of lung Status: Acute Problem Text: Two masses noted in right lower lobe: one in the lateral basal segment 5.5 cm subpleural; other in medial basal segment also posteriorly lower of 5.5 x 4 cm, bx obtained, results pending. (4) Hypothyroid Status: Acute Problem Text: Thyroid studies WNL upon admission. Continue synthroid (5) Anxiety Status: Acute Problem Text: Controlled at home on Wellbutrin. Lorazepam was added as needed, but she has not required any PRN doses. Plan/VTE VTE Prophylaxis Ordered?: Yes (heparin) Plan Diet: Continue Current Activity: Encourage Ambulation Attending note: I saw and evaluated the patient, and agree with the plan of care as discussed and document a by Melvi Oropeza. From a cardiac standpoint, the patient is not yet stable with rate control. From an infection standpoint, she is responded well to IV antibiotics, and will be on day 5 tomorrow. She could potentially be transition to oral antibiotics over the weekend. She is eager to go home, so I indicated that she would need to be stable on her heart medications, and be on oral antibiotics before she would be ready to be discharged. She will also need to be discharged on Xarelto or another long-term anticoagulated for her arrhythmia. Celia Mandujano MD VS, I&O, 24H, [facility] Vital Signs/I&O Vital Signs Date Time Temp Pulse Resp B/P Pulse Ox O2 Delivery O2 Flow Rate FiO2 05/30/16 08:42 Room Air 05/30/16 08:00 97.5 80 18 158/88 80 05/27/16 08:00 2.0 I&O- Last 24 Hours up to 6 AM 05/30/16 06:00 Intake Total 480 ml Output Total 745 ml Balance -265 ml Laboratory Data 24H LABS Laboratory Tests 2 05/30/16 05:36: Blood Urea Nitrogen 17, Creatinine 0.69, Sodium Level 132L, Potassium Level 3.3L , Chloride Level 97L, Carbon Dioxide Level 27, Calcium Level 8.7L, Aspartate Amino Transf (AST/SGOT) 18, Alanine Aminotransferase (ALT/SGPT) 21, Alkaline Phosphatase 88, Total Bilirubin 0.9, Total Protein 6.1L, Albumin 2.6L, Albumin/ Globulin Ratio 0.74L, Anion Gap 8, White Blood Count 9.6, Red Blood Count 3.64L , Hemoglobin 11.1L, Hematocrit 32.5L, Mean Corpuscular Volume 89.3, Mean Corpuscular Hemoglobin 30.4, Mean Corpuscular Hemoglobin Concent 34.1, Red Cell Distribution Width 12.9, Platelet Count 405, Neutrophils (%) (Auto) 85.6H, Lymphocytes (%) (Auto) 6.4L, Monocytes (%) (Auto) 6.4H, Eosinophils (%) (Auto) 0.8, Basophils (%) (Auto) 0.1, Neutrophils # (Auto) 8.2H, Lymphocytes # (Auto) 0.7L, Monocytes # (Auto) 0.6, Eosinophils # (Auto) 0.1, Basophils # (Auto) 0.0, Glomerular Filtration Rate > 60.0, Large Unclassified Cells # 0.1, Large Unclassified Cells % 0.7, Magnesium Level 1.7L CBC/BMP Laboratory Tests 05/30/16 05:36 Calcium Level 8.7 L, Aspartate Amino Transf (AST/SGOT) 18, Alanine Aminotransferase (ALT/SGPT) 21, Alkaline Phosphatase 88, Total Bilirubin 0.9, Total Protein 6.1 L, Albumin 2.6 L, Red Blood Count 3.64 L, Mean Corpuscular Volume 89.3, Mean Corpuscular Hemoglobin 30.4, Mean Corpuscular Hemoglobin Concent 34.1, Red Cell Distribution Width 12.9, Neutrophils (%) (Auto) 85.6 H, Lymphocytes (%) (Auto) 6.4 L, Monocytes (%) (Auto) 6.4 H, Eosinophils (%) (Auto ) 0.8, Basophils (%) (Auto) 0.1, Neutrophils # (Auto) 8.2 H, Lymphocytes # (Auto ) 0.7 L, Monocytes # (Auto) 0.6, Eosinophils # (Auto) 0.1, Basophils # (Auto) 0.0 Microbiology Microbiology 2/20/17 Blood Culture - Preliminary, Resulted No Growth after 72 hours. All specime... 05/26/16 Blood Culture - Preliminary, Resulted No Growth after 72 hours. All specime... 05/26/16 Respiratory Virus Panel (PCR) ([facility]) - Final, Complete MELVI OROPEZA PA-C May 30, 2016 10:29 CELIA MANDUJANO MD May 30, 2016 16:28
[2016-05-30] MEDS ORDERED: AMIODARONE 150MG/3ML INJ (J0282) IV STA (10:48)
[2016-05-30 12:00] VITALS: BP 147/85
[2016-05-30 16:00] VITALS: BP 148/73
[2016-05-30] MEDS: RIVAROXABAN 20 MG TAB (XARELTO) PO SCH (18:14)
[2016-05-30 19:46] VITALS: BP 132/72
[2016-05-30] MEDS ORDERED: AMIODARONE HCL 150 MG in APPROPRIATE DILUENT 1 EA IV ONE (20:00)
[2016-05-30] MEDS ORDERED: FUROSEMIDE 20 MG/2 ML VIAL (J1940) IV ONE (20:00)
[2016-05-30] MEDS: METOPROLOL TART 25 MG TABLET PO SCH (21:02)
[2016-05-30] MEDS: zolPIDEM TARTRATE 5 MG TAB PO SCH (21:02)
--- NOTE | 2016-05-30 21:09 | IPN ---
DATE: 05/30/2016 Mrs. Kasia Sandoval was initially seen on 05/27/2016 with atrial flutter with a controlled ventricular rate. Her Cardizem was increased and then her rate was under control. Yesterday, she underwent lung biopsy, result is pending. She was recently found to have a lung mass and she is being treated for postobstructive pneumonia. Today, I was informed by her physician's assistant case manager that her heart rate was going fast. She was given one dose of amiodarone IV 150 mg late this morning. Upon reviewing the strip, it seems that her heart rate varies between 100 and 130 beats per minute. When I saw Mrs. Kasia Sandoval this evening, she was lying supine in bed in no acute distress at rest. He denies any chest pain, palpitations, shortness of breath. She did ambulate today with her daughter. The result of the lung biopsy is pending. She is now on anticoagulation therapy with Xarelto. She denies any bleeding. It seems that she has not been having any fever for the last 48 hours. She denies any pedal edema. She has no focal manifestation. PHYSICAL EXAMINATION: The patient is alert and oriented, in no acute distress at rest and very pleasant. Her last blood pressure today was 148/69 with a pulse of 116, respirations 18, and temperature is 97.1 degrees Fahrenheit with an oxygen saturation of 97% on room air. HEAD: Normocephalic, atraumatic. NECK: Supple. No jugular venous distention (JVD). LUNGS: Revealed bilateral crackles. No wheezing. HEART: Examination revealed irregularly irregular heart sounds without gallops. The PMI is not displaced. There is no rub. There is a systolic murmur grade 1-2/6 at the lower left sternal border without any significant radiation. ABDOMEN: Unremarkable. EXTREMITIES: No pedal edema. NEUROLOGIC: Examination is negative for focal deficit. LABORATORY DATA: Complete blood count (CBC) revealed a WBC of 9.6, hemoglobin 11.1, hematocrit 32.5 and platelets 405,000. Basic metabolic panel (BMP) revealed a sodium of 132, potassium 3.3, and chloride 97, CO2 of 27, BUN 17, creatinine 0.69, GFR more than 60, fasting glucose 144, calcium 8.7. Serum magnesium is 1.7. Liver enzymes revealed a total bilirubin of 0.9, AST 18, ALT 21, alkaline phosphatase 88, total protein 6.1, albumin 2.6. Chest x-ray done after her lung biopsy was negative for pneumothorax. There is right sided infiltrate versus mass. IMPRESSION: 1. Atrial flutter with uncontrolled ventricular rate, asymptomatic. The patient has a normal left ventricular ejection fraction. She is now on Xarelto, and I will continue the same. On physical examination, she appears to be having crackles now on the left side in addition to the right side and she will be given a dose of IV Lasix and I will reassess her serum BMP. I am suspecting that she may be having some heart failure. I will continue the amiodarone, and she will be monitored. I am also considering adding a small dose of a short acting beta sebastian with metoprolol tartrate. 2. Right lower lung mass, being evaluated. The patient had biopsy done today, result/pathology is pending. 3. Possible postobstructive pneumonia, being addressed. On antibiotics. 4. Electrolyte abnormalities. The patient is on magnesium and earlier today, she had received a 40 mEq dose of Micro-KK. She is being monitored. 5. History of hypertension. Under fair control. It was a pleasure to participate in the care of Mrs. Kasia Sandoval for her underlying cardiac condition. I will continue to monitor along with you while in the hospital. Please do not hesitate to call if you have any questions.
[2016-05-30 23:36] VITALS: BP 130/68
[2016-05-31] MEDS: PIPERACILLIN/TAZOBACTAM SOD 3.375 GM in D5W MINI-BAG PLUS 50 ML IV SCH ×4 (00:06→20:55)
[2016-05-31] MEDS: VANCOMYCIN HCL 1,000 MG, VIAL MATE ADAPTER 1 EACH in D5W 250 ML IV SCH ×2 (03:18→17:52)
[2016-05-31 04:24] VITALS: BP 140/62
[2016-05-31 05:15] LABS: BASO % 0.1 % (0.0-1.0); EOS % 0.2 % (0.0-3.0); LARGE UNSTAINED CELL # 0.1 K/mm3 (0.0-0.4); LARGE UNSTAINED CELL % 0.8 % (0.0-4.0); LYMPH # 0.7 K/mm3 (1.5-4.5); MEAN CORPUSCULAR HEMOGLOBIN 29.9 pg (27.0-33.0); MEAN CORPUSCULAR HGB CONC 34.1 g/dl (32.0-36.5); MEAN CORPUSCULAR VOLUME 87.5 fl (80.0-96.0); MONO # 0.6 K/mm3 (0.0-0.8); MONO % 5.1 % (0.0-5.0); NEUTROPHILS # 9.9 K/mm3 (1.8-7.7); NEUTROPHILS % 87.8 % (36.0-66.0); PLATELET COUNT, AUTOMATED 394 k/mm3 (150-450); RED CELL DISTRIBUTION WIDTH 12.6 % (11.5-14.5); WHITE BLOOD COUNT 11.3 K/mm3 (4.0-10.0)
[2016-05-31] MEDS: LEVOTHYROXINE 0.075 MG TAB (75 MCG) PO SCH (05:24)
[2016-05-31] MEDS: SLF 3 ML SYR IV SCH ×3 (05:24→20:55)
[2016-05-31 05:35] LABS: ALBUMIN 2.6 GM/DL (3.2-5.2); ALBUMIN/GLOBULIN RATIO 0.74 (1.00-1.93); ALKALINE PHOSPHATASE 84 U/L (45-117); ALT/SGPT 19 U/L (12-78); ANION GAP 10 MEQ/L (8-16); AST/SGOT 20 U/L (15-37); BILIRUBIN,TOTAL 0.8 MG/DL (0.2-1.0); BLOOD UREA NITROGEN 15 MG/DL (7-18); CALCIUM LEVEL 8.4 MG/DL (8.8-10.2); CARBON DIOXIDE LEVEL 27 MEQ/L (21-32); CHLORIDE LEVEL 93 MEQ/L (98-107); CREATININE FOR GFR 0.73 MG/DL (0.55-1.02); GLOMERULAR FILTRATION RATE > 60.0 (>32); GLUCOSE, FASTING 167 MG/DL (83-110); MAGNESIUM LEVEL 1.8 MG/DL (1.8-2.4); POTASSIUM SERUM 3.2 MEQ/L (3.5-5.1); SODIUM LEVEL 130 MEQ/L (136-145); TOTAL PROTEIN 6.1 GM/DL (6.4-8.2)
[2016-05-31 07:48] VITALS: BP 156/70
[2016-05-31] MEDS ORDERED: POTASSIUM CHLORIDE 10 MEQ SR TABLET PO ONE ×2 (08:30→12:00)
--- NOTE | 2016-05-31 08:36 | IPNPDOC ---
Subjective Date Seen The patient was seen on 05/31/16. Subjective Chief Complaint/HPI The patient is a 81-year-old female admitted with a reason for visit of Atrial Flutter With Rapid Ventricular Resp. Events since last encounter Seen and evaluated in the PCU this morning. Dr. Roa saw her again yesterday evening and added Lopressor to CCB for rates in the 130s. Since then, rates have been slightly improved but remain tachy in the 100s. She remains asymptomatic and is anxious to go home. He also gave her a small dose of IV lasix for what he suspected to be some heart failure based on RLL crackles on exam (per his documentation). BNP was checked and was actually less than it was on admission (178 vs 431). General: Reports: Normal Appetite, Denies: Chills, Fatigue, Malaise, Night Sweats Pulmonary: Denies: Cough, Dyspnea Cardiovascular: Denies: Chest Pain, Lt Headedness, Orthopnea, Palpitations, Paroxysmal Noc. Dyspnea Gastrointestinal: Denies: Abdominal Pain, Constipation, Diarrhea, Nausea, Vomiting Neurological: Denies: Change in speech, Confusion, Numbness, Weakness Objective Physical Examination General Exam: Positive: Alert, No Acute Distress Eye Exam: Negative: Sclera icteric ENT Exam: Positive: Mucous membr. moist/pink, Pharynx Normal Neck Exam: Positive: Supple, Negative: JVD Chest Exam: Positive: Normal air movement, Rhonchi (right base, intermittent) Heart Exam: Positive: Irregular Rhythm, Tachycardic (rate 105 on exam), Negative: Murmurs Telemetry: Positive: Atrial fibrillation, Tachycardia Abdomen Exam: Positive: Normal bowel sounds, Soft, Negative: Hepatospenomegaly, Tenderness Extremity Exam: Positive: Normal pulses, Negative: Clubbing, Cyanosis, Edema, Swelling Skin Exam: Positive: Nl turgor and temperature, Negative: Breakdown, Rash Assessment /Plan Assessment Family Medicine Attending Note: I was present on site to supervise Dr. Thea Swan ([facility]-3). We discussed the history and exam. I confirmed the castillo elements during my [id number] encounter with the patient. We conferred on the assessment and plan; I agree with the note as documented. Mrs. Sandoval remained relatively stable throughout the day. She did have several episodes where her heart rate went into the 150s. She was ordered a dose of amiodarone by cardiology. She remains clinically stable. I'll defer to cardiology on further management of her rapid ventricular response. Her is concerned about her anxiety, however, when the patient is asked whether she wants a when necessary anxiolytic (which is already ordered) she declines it. 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 Roa) Problem Specific Plan: Consult Specialist Problem Text: Dr. Roa added lopressor to her regimen yesterday evening, and her rates have been significantly improved, but she does remain intermittently tachycardic in the low 100s. We've confirmed that her insurance will cover Xarelto, so this has been instituted here as well. Overall, slowly improving. Optimistic for dc in the next day or so. 05/29 -Dr. Roa following, adjusting cardiac meds; appreciate his assistance. Cardizem has been increased. She's ambulating well. -Cardiac enzymes cycled, neg -Echo ordered -TSH WNL (2) Postobstructive pneumonia Status: Acute Problem Text: Improving, WBC normal. Bcx neg x 72h 05/08 recently dx lung masses. RVP neg Ag for strep/legionella neg On D6 Zosyn/Vanco, can probably be dc c augmentin/doxy Not requiring O2. Afebrile (3) Hypokalemia Status: Acute Problem Text: And hyponatremia. May be related to Zosyn. Repleted, started on aldactone Continue to monitor closely (4) Mass of lung Status: Acute Problem Text: Two masses noted in right lower lobe: one in the lateral basal segment 5.5 cm subpleural; other in medial basal segment also posteriorly lower of 5.5 x 4 cm, bx obtained, results pending. (5) Hypothyroid Status: Chronic Problem Text: Thyroid studies WNL upon admission. Continue synthroid (6) Anxiety Status: Chronic Problem Text: Controlled at home on Wellbutrin. Lorazepam was added as needed, but she has not required any PRN doses. Plan/VTE VTE Prophylaxis Ordered?: Yes (Xarelto) Plan Diet: Continue Current Activity: Encourage Ambulation VS, I&O, 24H, Fishbone Vital Signs/I&O Vital Signs Date Time Temp Pulse Resp B/P Pulse Ox O2 Delivery O2 Flow Rate FiO2 2/25/17 08:03 Room Air 05/31/16 07:48 97.8 110 18 156/70 94 05/27/16 08:00 2.0 I&O- Last 24 Hours up to 6 AM 05/31/16 06:00 Intake Total 1060 ml Output Total 1625 ml Balance -565 ml Laboratory Data 24H LABS Laboratory Tests 2 05/31/16 04:25: Blood Urea Nitrogen 15, Creatinine 0.73, Sodium Level 130L, Potassium Level 3.2L , Chloride Level 93L, Carbon Dioxide Level 27, Calcium Level 8.4L, Aspartate Amino Transf (AST/SGOT) 20, Alanine Aminotransferase (ALT/SGPT) 19, Alkaline Phosphatase 84, Total Bilirubin 0.8, Total Protein 6.1L, Albumin 2.6L, Albumin/ Globulin Ratio 0.74L, Anion Gap 10, B-Type Natriuretic Peptide 178H, White Blood Count 11.3H, Red Blood Count 3.65L, Hemoglobin 10.9L, Hematocrit 31.9L, Mean Corpuscular Volume 87.5, Mean Corpuscular Hemoglobin 29.9, Mean Corpuscular Hemoglobin Concent 34.1, Red Cell Distribution Width 12.6, Platelet Count 394, Neutrophils (%) (Auto) 87.8H, Lymphocytes (%) (Auto) 6.0L, Monocytes (%) (Auto) 5.1H, Eosinophils (%) (Auto) 0.2, Basophils (%) (Auto) 0.1, Neutrophils # (Auto) 9.9H, Lymphocytes # (Auto) 0.7L, Monocytes # (Auto) 0.6, Eosinophils # (Auto) 0.0, Basophils # (Auto) 0.0, Glomerular Filtration Rate > 60.0, Large Unclassified Cells # 0.1, Large Unclassified Cells % 0.8, Magnesium Level 1.8 CBC/BMP Laboratory Tests 05/31/16 04:25 Calcium Level 8.4 L, Aspartate Amino Transf (AST/SGOT) 20, Alanine Aminotransferase (ALT/SGPT) 19, Alkaline Phosphatase 84, Total Bilirubin 0.8, Total Protein 6.1 L, Albumin 2.6 L, Red Blood Count 3.65 L, Mean Corpuscular Volume 87.5, Mean Corpuscular Hemoglobin 29.9, Mean Corpuscular Hemoglobin Concent 34.1, Red Cell Distribution Width 12.6, Neutrophils (%) (Auto) 87.8 H, Lymphocytes (%) (Auto) 6.0 L, Monocytes (%) (Auto) 5.1 H, Eosinophils (%) (Auto ) 0.2, Basophils (%) (Auto) 0.1, Neutrophils # (Auto) 9.9 H, Lymphocytes # (Auto ) 0.7 L, Monocytes # (Auto) 0.6, Eosinophils # (Auto) 0.0, Basophils # (Auto) 0.0 Microbiology Microbiology 05/26/16 Blood Culture - Preliminary, Resulted No Growth after 72 hours. All specime... 05/26/16 Blood Culture - Preliminary, Resulted No Growth after 72 hours. All specime... 05/26/16 Respiratory Virus Panel (PCR) ([facility]) - Final, Complete THEA SWAN DO May 31, 2016 08:36 Antwan Beckett MD May 31, 2016 19:55
[2016-05-31] MEDS: buPROPion (WELLBUTRIN SR) 100 MG SR TAB PO SCH (09:03)
[2016-05-31] MEDS: SPIRONOLACTONE 25 MG TAB PO SCH (09:03)
[2016-05-31] MEDS: MAGNESIUM OXIDE 400 MG TAB (MAG-OX) PO SCH ×2 (09:03→20:54)
[2016-05-31] MEDS: METOPROLOL TART 25 MG TABLET PO SCH (09:03)
[2016-05-31] MEDS: ONDANSETRON 4 MG TAB (S0181) PO PRN (11:31)
[2016-05-31 12:00] VITALS: BP 172/82
[2016-05-31] MEDS ORDERED: ONDANSETRON 4MG/2ML VIAL (J2405) IV ONE (12:15)
[2016-05-31] MEDS: KCL 10MEQ IN 100ML SWI (KRUN) 10 MEQ in APPROPRIATE DILUENT 1 EA IV SCH ×8 (12:25→19:38)
[2016-05-31] MEDS: LORazepam 2 MG/ML VIAL (J2060) IV PRN ×2 (12:53→21:11)
[2016-05-31] MEDS ORDERED: AMIODARONE HCL 150 MG in APPROPRIATE DILUENT 1 EA IV ONE (14:15)
[2016-05-31] MEDS ORDERED: METOPROLOL TART 25 MG TABLET PO ONE (14:15)
[2016-05-31 16:00] VITALS: BP 126/80
[2016-05-31] MEDS ORDERED: AMIODARONE HCL 150 MG in APPROPRIATE DILUENT 1 EA IV STA (17:32)
[2016-05-31] MEDS: RIVAROXABAN 20 MG TAB (XARELTO) PO SCH (17:58)
[2016-05-31 20:00] VITALS: BP 110/72
[2016-05-31] MEDS: METOPROLOL TART 50 MG TAB PO SCH (20:55)
[2016-05-31] MEDS: zolPIDEM TARTRATE 5 MG TAB PO SCH (21:00)
[2016-06-01] VITALS (8 sets, daily range): BP systolic 98–132; BP diastolic 58–76
[2016-06-01] MEDS: VANCOMYCIN HCL 1,000 MG, VIAL MATE ADAPTER 1 EACH in D5W 250 ML IV SCH (03:49)
[2016-06-01 05:31] LABS: BASO % 0.1 % (0.0-1.0); EOS % 0.3 % (0.0-3.0); LARGE UNSTAINED CELL # 0.1 K/mm3 (0.0-0.4); LARGE UNSTAINED CELL % 0.9 % (0.0-4.0); LYMPH # 0.7 K/mm3 (1.5-4.5); LYMPH % 5.3 % (24.0-44.0); MEAN CORPUSCULAR HEMOGLOBIN 29.9 pg (27.0-33.0); MEAN CORPUSCULAR HGB CONC 33.7 g/dl (32.0-36.5); MEAN CORPUSCULAR VOLUME 88.7 fl (80.0-96.0); MONO # 0.6 K/mm3 (0.0-0.8); MONO % 4.3 % (0.0-5.0); NEUTROPHILS # 11.4 K/mm3 (1.8-7.7); NEUTROPHILS % 89.1 % (36.0-66.0); PLATELET COUNT, AUTOMATED 408 k/mm3 (150-450); RED CELL DISTRIBUTION WIDTH 12.7 % (11.5-14.5); WHITE BLOOD COUNT 12.8 K/mm3 (4.0-10.0)
[2016-06-01 05:45] LABS: ALBUMIN 2.5 GM/DL (3.2-5.2); ALBUMIN/GLOBULIN RATIO 0.71 (1.00-1.93); ALKALINE PHOSPHATASE 81 U/L (45-117); ALT/SGPT 24 U/L (12-78); ANION GAP 10 MEQ/L (8-16); AST/SGOT 21 U/L (15-37); BILIRUBIN,TOTAL 0.8 MG/DL (0.2-1.0); BLOOD UREA NITROGEN 20 MG/DL (7-18); CALCIUM LEVEL 8.4 MG/DL (8.8-10.2); CARBON DIOXIDE LEVEL 26 MEQ/L (21-32); CHLORIDE LEVEL 93 MEQ/L (98-107); CREATININE FOR GFR 0.85 MG/DL (0.55-1.02); GLOMERULAR FILTRATION RATE > 60.0 (>32); GLUCOSE, FASTING 190 MG/DL (83-110); MAGNESIUM LEVEL 1.8 MG/DL (1.8-2.4); POTASSIUM SERUM 3.9 MEQ/L (3.5-5.1); SODIUM LEVEL 129 MEQ/L (136-145)
[2016-06-01] MEDS: LEVOTHYROXINE 0.075 MG TAB (75 MCG) PO SCH (05:53)
[2016-06-01] MEDS: SLF 3 ML SYR IV SCH ×3 (05:53→21:04)
[2016-06-01] MEDS: PIPERACILLIN/TAZOBACTAM SOD 3.375 GM in D5W MINI-BAG PLUS 50 ML IV SCH ×3 (05:57)
[2016-06-01] MEDS: LORazepam 2 MG/ML VIAL (J2060) IV PRN (07:35)
[2016-06-01] MEDS: buPROPion (WELLBUTRIN SR) 100 MG SR TAB PO SCH (08:41)
[2016-06-01] MEDS: SPIRONOLACTONE 25 MG TAB PO SCH (08:41)
[2016-06-01] MEDS: MAGNESIUM OXIDE 400 MG TAB (MAG-OX) PO SCH ×2 (08:41→21:03)
[2016-06-01] MEDS: METOPROLOL TART 50 MG TAB PO SCH ×2 (08:42→21:04)
--- NOTE | 2016-06-01 11:26 | IPN ---
DATE: 06/01/2016 Mrs. Kasia Sandoval was seen early this morning. Her was at bedside. She was supine in no acute distress at rest. She denies any nausea or vomiting today. Her heart rate is under control, and she denies any fluttering in her chest. She has no chest pain, orthopnea or paroxysmal nocturnal dyspnea (PND). She denies any bleeding. On physical examination, the patient is alert and oriented, in no acute distress at rest and her vital signs this morning revealed a blood pressure of 130/60 with a pulse of about 90 on telemetry, respirations 18-20 and her temperature is 97.4 degrees Fahrenheit with an oxygen saturation of 93% on room air. Examination of the head, ears, eyes, nose and throat: Atraumatic. Neck is supple. No jugular venous distention (JVD). The lungs revealed minimal dry crackles, more on the right lung than on the left. The heart examination revealed irregularly irregular heart sounds without gallops. The point of maximum impulse (PMI) is not displaced. There is no rub. Abdomen is soft. Extremities revealed no pedal edema. Neurologic examination is negative for focal deficit. LABORATORY: BMP done today revealed a sodium of 139, potassium 3.9, chloride 93, CO2 26, BUN 20, creatinine 0.85, GFR more than 60, fasting glucose 190, calcium 8.4. Magnesium is 1.8. Liver enzymes revealed a total bilirubin of 0.8, AST 21, ALT 24, alkaline phosphatase 81, total protein 6.0, albumin 2.5. CBC revealed a WBC of 12.8, hemoglobin 10.9, hematocrit 32.4 and platelets 408,000. Telemetry revealed atrial flutter and last one revealed a ventricular rate of about 75 beats per minute. Yesterday in the evening, she was as high as 155 beats per minute. IMPRESSION: 1. Atrial flutter, newly diagnosed, with now a better controlled ventricular rate on a combination of beta sebastian and calcium channel sebastian. She is also on Xarelto for prevention of thromboembolic event. There is no report of bleeding. She will be monitored on current medications. 2. Right lung mass and status post biopsy. Pathology is pending. She is also being treated for postobstructive pneumonia, on IV antibiotics. It seems that she has not been febrile. 3. Hypertension, now under control. She will continue current medications, on calcium channel sebastian with Cardizem, beta sebastian, metoprolol tartrate and she is also on spironolactone. 4. Electrolyte abnormalities. Now her magnesium and her potassium are under control. She has persistent hyponatremia. She might benefit from a regular salt intake and/or normal saline but will leave that for you. 5. History of anxiety, being addressed. It was a pleasure to participate in the care of Mrs. Kasia Sandoval for her underlying cardiac condition. She appears to be stable from a cardiac point of view, and she will be monitored on current medications. Tomorrow, Dr. Morales will be seeing her. Please do not hesitate to call if you have any questions.
--- NOTE | 2016-06-01 12:14 | IPNPDOC ---
Subjective Date Seen The patient was seen on 06/01/16. Subjective Chief Complaint/HPI Family at [facility], her dgt is concerned bc the pt has not been getting up out of bed much. Pt without new concerns. General: Reports: Fatigue Constitutional: Denies: Chills, Fever Pulmonary: Reports: Cough, Dyspnea Cardiovascular: Denies: Chest Pain, Palpitations Gastrointestinal: Denies: Diarrhea, Nausea, Vomiting Musculoskeletal: Denies: Neck Pain Neurological: Reports: Weakness Psych: Reports: Mood Normal Objective Physical Examination General Exam: Positive: Alert, No Acute Distress Eye Exam: Positive: Conjunctiva & lids normal, EOMI, PERRLA, Negative: Sclera icteric ENT Exam: Positive: Atraumatic, Mucous membr. moist/pink, Pharynx Normal Neck Exam: Positive: Supple, Negative: JVD Chest Exam: Positive: Clear to auscultation, Diminished Heart Exam: Positive: Irregular Rhythm, Tachycardic, Negative: Murmurs Telemetry: Positive: Atrial fibrillation Abdomen Exam: Positive: Normal bowel sounds, Soft, Negative: Hepatospenomegaly, Tenderness Extremity Exam: Positive: Normal pulses, Negative: Clubbing, Cyanosis, Edema Skin Exam: Positive: Nl turgor and temperature, Negative: Breakdown, Rash Assessment /Plan Assessment Family Medicine Attending Note: I saw and examined Ms. Sandoval, discussed with FIORELLA Gonzalez. Agree with their note as documented. I spoke to Dr. Roa regarding her rapid ventricular response. Ms. Sandoval is doing much better with her heart rate. He wondered if we should do further investigation of her hyponatremia, and since it is still trending down, I think this is very reasonable. She was able to get up and walk around a little bit with therapy later this morning. The biopsy results are pending. 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 Roa) Problem Specific Plan: Consult Specialist Problem Text: 06/01 - Lopressor increased last night d/t elevated HR, when rate controlled, anticipate d/c home, possibly Thursday morning. 05/31 Dr. Roa added lopressor to her regimen yesterday evening, and her rates have been significantly improved, but she does remain intermittently tachycardic in the low 100s. We've confirmed that her insurance will cover Xarelto, so this has been instituted here as well. Overall, slowly improving. Optimistic for dc in the next day or so. 05/29 -Dr. Roa following, adjusting cardiac meds; appreciate his assistance. Cardizem has been increased. She's ambulating well. -Cardiac enzymes cycled, neg -Echo ordered -TSH WNL (2) Postobstructive pneumonia Status: Acute Problem Text: 06/01 - Clinically improving, change abx to Augmentin and Doxy, Abx D 7. 05/31 Improving, WBC normal. Bcx neg x 72h 05/08 recently dx lung masses. RVP neg Ag for strep/legionella neg On D6 Zosyn/Vanco, can probably be dc c augmentin/doxy Not requiring O2. Afebrile (3) Hypokalemia Status: Acute Problem Text: May be related to Zosyn. 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 I ordered serum and urine osmolarity as well as urine sodium and chloride. 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 (6) Hypothyroid Status: Chronic Problem Text: Thyroid studies WNL upon admission. Continue synthroid (7) Anxiety Status: Chronic Problem Text: Controlled at home on Wellbutrin. Lorazepam was added as needed, but she has not required any PRN doses. Plan/VTE VTE Prophylaxis Ordered?: Yes (Xarelto) Plan Diet: Continue Current Activity: Encourage Ambulation VS, I&O, 24H, [place] Vital Signs/I&O Vital Signs Date Time Temp Pulse Resp B/P Pulse Ox O2 Delivery O2 Flow Rate FiO2 06/01/16 12:10 96.4 99 18 125/71 94 Room Air 05/27/16 08:00 2.0 I&O- Last 24 Hours up to 6 AM 06/01/16 06:00 Intake Total 1410 ml Output Total 700 ml Balance 710 ml Laboratory Data 24H LABS Laboratory Tests 2 05/31/16 14:50: Vancomycin Level Trough 14.6 06/01/16 04:42: Blood Urea Nitrogen 20H, Creatinine 0.85, Sodium Level 129L, Potassium Level 3.9 #, Chloride Level 93L, Carbon Dioxide Level 26, Calcium Level 8.4L, Aspartate Amino Transf (AST/SGOT) 21, Alanine Aminotransferase (ALT/SGPT) 24, Alkaline Phosphatase 81, Total Bilirubin 0.8, Total Protein 6.0L, Albumin 2.5L, Albumin/ Globulin Ratio 0.71L, Anion Gap 10, White Blood Count 12.8H, Red Blood Count 3.65L, Hemoglobin 10.9L, Hematocrit 32.4L, Mean Corpuscular Volume 88.7, Mean Corpuscular Hemoglobin 29.9, Mean Corpuscular Hemoglobin Concent 33.7, Red Cell Distribution Width 12.7, Platelet Count 408, Neutrophils (%) (Auto) 89.1H, Lymphocytes (%) (Auto) 5.3L, Monocytes (%) (Auto) 4.3, Eosinophils (%) (Auto) 0.3, Basophils (%) (Auto) 0.1, Neutrophils # (Auto) 11.4H, Lymphocytes # (Auto) 0.7L, Monocytes # (Auto) 0.6, Eosinophils # (Auto) 0.0, Basophils # (Auto) 0.0, Glomerular Filtration Rate > 60.0, Large Unclassified Cells # 0.1, Large Unclassified Cells % 0.9, Magnesium Level 1.8 CBC/BMP Laboratory Tests 06/01/16 04:42 Calcium Level 8.4 L, Aspartate Amino Transf (AST/SGOT) 21, Alanine Aminotransferase (ALT/SGPT) 24, Alkaline Phosphatase 81, Total Bilirubin 0.8, Total Protein 6.0 L, Albumin 2.5 L, Red Blood Count 3.65 L, Mean Corpuscular Volume 88.7, Mean Corpuscular Hemoglobin 29.9, Mean Corpuscular Hemoglobin Concent 33.7, Red Cell Distribution Width 12.7, Neutrophils (%) (Auto) 89.1 H, Lymphocytes (%) (Auto) 5.3 L, Monocytes (%) (Auto) 4.3, Eosinophils (%) (Auto) 0.3, Basophils (%) (Auto) 0.1, Neutrophils # (Auto) 11.4 H, Lymphocytes # (Auto ) 0.7 L, Monocytes # (Auto) 0.6, Eosinophils # (Auto) 0.0, Basophils # (Auto) 0.0 Microbiology Microbiology 05/26/16 Blood Culture - Final, Complete NO GROWTH AFTER 5 DAYS 05/26/16 Blood Culture - Final, Complete NO GROWTH AFTER 5 DAYS 05/26/16 Respiratory Virus Panel (PCR) (ISELA) - Final, Complete MELVI OROPEZA PA-C Jun 01, 2016 12:14 Antwan Beckett MD Jun 01, 2016 20:15
[2016-06-01] MEDS ORDERED: LORazepam 0.5 MG TAB PO PRN (12:15)
[2016-06-01] MEDS: AUGMENTIN 875 MG TAB PO SCH ×2 (12:28→21:02)
[2016-06-01] MEDS: DOXYCYCLINE HYCLATE 100 MG TAB PO SCH ×2 (12:29→21:03)
[2016-06-01] MEDS: LORazepam 0.5 MG TAB PO PRN (16:09)
[2016-06-01] MEDS: RIVAROXABAN 20 MG TAB (XARELTO) PO SCH (17:19)
[2016-06-01 20:06] LABS: OSMOLALITY URINE 413 MOSM/KG (500-800)
[2016-06-01] MEDS: zolPIDEM TARTRATE 5 MG TAB PO SCH (21:02)
[2016-06-02 04:59] VITALS: BP 106/62
[2016-06-02] MEDS: LEVOTHYROXINE 0.075 MG TAB (75 MCG) PO SCH (05:03)
[2016-06-02] MEDS: SLF 3 ML SYR IV SCH ×3 (05:03→21:17)
[2016-06-02] MEDS: LORazepam 0.5 MG TAB PO PRN (05:09)
[2016-06-02 05:37] LABS: BASO % 0.1 % (0.0-1.0); EOS % 0.2 % (0.0-3.0); LARGE UNSTAINED CELL # 0.2 K/mm3 (0.0-0.4); LYMPH # 0.6 K/mm3 (1.5-4.5); LYMPH % 4.1 % (24.0-44.0); MEAN CORPUSCULAR HEMOGLOBIN 29.7 pg (27.0-33.0); MEAN CORPUSCULAR HGB CONC 33.8 g/dl (32.0-36.5); MEAN CORPUSCULAR VOLUME 87.7 fl (80.0-96.0); MONO # 0.8 K/mm3 (0.0-0.8); NEUTROPHILS # 13.3 K/mm3 (1.8-7.7); NEUTROPHILS % 89.5 % (36.0-66.0); PLATELET COUNT, AUTOMATED 437 k/mm3 (150-450); RED CELL DISTRIBUTION WIDTH 12.8 % (11.5-14.5); WHITE BLOOD COUNT 14.9 K/mm3 (4.0-10.0)
[2016-06-02 06:00] LABS: ALBUMIN 2.6 GM/DL (3.2-5.2); ALKALINE PHOSPHATASE 90 U/L (45-117); ALT/SGPT 44 U/L (12-78); ANION GAP 12 MEQ/L (8-16); AST/SGOT 38 U/L (15-37); BILIRUBIN,TOTAL 0.8 MG/DL (0.2-1.0); BLOOD UREA NITROGEN 21 MG/DL (7-18); CALCIUM LEVEL 8.7 MG/DL (8.8-10.2); CARBON DIOXIDE LEVEL 25 MEQ/L (21-32); CHLORIDE LEVEL 94 MEQ/L (98-107); CREATININE FOR GFR 0.73 MG/DL (0.55-1.02); GLOMERULAR FILTRATION RATE > 60.0 (>32); GLUCOSE, FASTING 108 MG/DL (83-110); MAGNESIUM LEVEL 1.9 MG/DL (1.8-2.4); POTASSIUM SERUM 3.9 MEQ/L (3.5-5.1); SODIUM LEVEL 131 MEQ/L (136-145); TOTAL PROTEIN 6.3 GM/DL (6.4-8.2)
--- NOTE | 2016-06-02 07:42 | IPN ---
DATE: 06/02/2016 Mrs. Sandoval tells me that she had a relatively good night. She was able to sleep even though she slept mostly in the chair. She says that she feels exhausted, but otherwise denies any shortness of breath or sensation of palpitations or chest discomfort. Vital signs: Blood pressure 106/62, heart rate is in 70s, mostly when she sleeps , but when she is upright or with minimal activity speeds up into 230 range. She remains in atrial flutter. She is afebrile. Saturation is 93% on room air. Weight is documented at 65 kg. She is alert and oriented and appropriate even though she does appear chronically ill. Her JVP is not elevated. Lungs are relatively clear to auscultation. I do not appreciate any wheezing, crackles, or rhonchi. Heart: Exam is irregularly irregular controlled during the time of my exam. I do not appreciate any gallop or murmur. Abdomen is soft. There is no peripheral edema. Neurologically: She appears intact. LABORATORY: WBC count is 14.9, hemoglobin 11.6, hematocrit 34.2 and platelet count 437,000. Basic metabolic panel: Sodium 131, BUN 21, creatinine 0.74. Calculated GFR over 60 and glucose 108. Normal liver function tests and albumin is low at 2.6. BNP was 178 two days ago and it was 430 on admission. ASSESSMENT AND PLAN: Mrs. Sandoval is a very pleasant 81-year-old female who presented with atrial flutter and rapid ventricular response. She was anticoagulated with Xarelto and rate control with combination of metoprolol 50 twice a day and Cardizem 30 mg every six hours with holding parameters. At this point, she seems to be reasonably well-controlled especially at rest even though she is still mildly tachycardic with activity. Because I do not foresee that she will be physically very active, I think this is quite acceptable. At this point from cardiac perspective, I believe she can go home on current regimen (I will change her immediate release Cardizem to slow release Cardizem) and I will await long-term approach to atrial flutter depending on results of her lung biopsy. It is expected that she has underlying malignancy, under which circumstances I would probably continue with rate control and anticoagulation, but ultimately this will be left to Dr. Roa who will remain her primary managing supervisor. FLAVIO
[2016-06-02 08:00] VITALS: BP 105/62
[2016-06-02] MEDS: SPIRONOLACTONE 25 MG TAB PO SCH (09:05)
[2016-06-02] MEDS: MAGNESIUM OXIDE 400 MG TAB (MAG-OX) PO SCH ×2 (09:05→21:17)
[2016-06-02] MEDS: DOXYCYCLINE HYCLATE 100 MG TAB PO SCH ×2 (09:05→21:16)
[2016-06-02] MEDS: buPROPion (WELLBUTRIN SR) 100 MG SR TAB PO SCH (09:05)
[2016-06-02] MEDS: AUGMENTIN 875 MG TAB PO SCH ×2 (09:05→21:15)
[2016-06-02] MEDS: METOPROLOL TART 50 MG TAB PO SCH ×2 (09:06→21:16)
--- NOTE | 2016-06-02 09:45 | IPNPDOC ---
Subjective Date Seen The patient was seen on 06/02/16. Subjective Chief Complaint/HPI The patient is a 81-year-old female admitted with a reason for visit of Atrial Flutter With Rapid Ventricular Resp. Events since last encounter Pt states she is about the same. She denies CP, SOB. Constitutional: Denies: Chills, Fever Pulmonary: Denies: Dyspnea Cardiovascular: Denies: Chest Pain Gastrointestinal: Denies: Abdominal Pain, Nausea, Vomiting Objective Physical Examination General Exam: Positive: Alert, No Acute Distress Eye Exam: Positive: Conjunctiva & lids normal, EOMI, PERRLA, Negative: Sclera icteric ENT Exam: Positive: Atraumatic, Mucous membr. moist/pink, Pharynx Normal Neck Exam: Positive: Supple, Negative: JVD Chest Exam: Positive: Clear to auscultation, Diminished Heart Exam: Positive: Irregular Rhythm, Tachycardic, Negative: Murmurs Telemetry: Positive: Atrial fibrillation Abdomen Exam: Positive: Normal bowel sounds, Soft, Negative: Hepatospenomegaly, Tenderness Extremity Exam: Positive: Normal pulses, Negative: Clubbing, Cyanosis, Edema Skin Exam: Positive: Nl turgor and temperature, Negative: Breakdown, Rash Assessment /Plan Problems (1) Atrial flutter with rapid ventricular response Status: Acute Discussed With: Other Discussed With: (Dr. Roa) Problem Specific Plan: Consult Specialist Problem Text: 06/02 - Cardiology following and adjusting Cardizem. On Lopressor. 06/01 - Lopressor increased last night d/t elevated HR, when rate controlled, anticipate d/c home, possibly Thursday morning. 05/31 Dr. Roa added lopressor to her regimen yesterday evening, and her rates have been significantly improved, but she does remain intermittently tachycardic in the low 100s. We've confirmed that her insurance will cover Xarelto, so this has been instituted here as well. Overall, slowly improving. Optimistic for dc in the next day or so. 05/29 -Dr. Roa following, adjusting cardiac meds; appreciate his assistance. Cardizem has been increased. She's ambulating well. -Cardiac enzymes cycled, neg -Echo ordered -TSH WNL (2) Postobstructive pneumonia Status: Acute Problem Text: 06/02 - WBC up today to 14.9. On Augmentin and Doxy (changed yesterday), Abx D 8. 06/01 - Clinically improving, change abx to Augmentin and Doxy, Abx D 7. 05/31 Improving, WBC normal. Bcx neg x 72h / recently dx lung masses. RVP neg Ag for strep/legionella neg On D6 Zosyn/Vanco, can probably be dc c augmentin/doxy Not requiring O2. Afebrile (3) Hypokalemia Status: Acute Problem Text: May be related to Zosyn. 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 I ordered serum and urine osmolarity as well as urine sodium and chloride. 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 (6) Hypothyroid Status: Chronic Problem Text: Thyroid studies WNL upon admission. Continue synthroid (7) Anxiety Status: Chronic Problem Text: Controlled at home on Wellbutrin. Lorazepam was added as needed, but she has not required any PRN doses. Plan/VTE VTE Prophylaxis Ordered?: Yes (Xarelto) Plan Diet: Continue Current Activity: Encourage Ambulation Attending attestation: I saw and evaluated the patient, and I agree with the plan of care as discussed and documented by Adolfo Hooker. Cardiology has cleared the patient for discharge. Patient feels well, denies fevers, and is breathing easily. From an infectious standpoint, she may be ready for discharge as well. However, her white count is rising. She has not been started on any prednisone. Patient denies any current symptoms of dysuria, cough, fevers, chills, or malaise. Ordered urinalysis to ensure patient is not developing a urinary tract infection. If patient is still asymptomatic tomorrow, this may be an inflammatory reaction from her lung mass. Potentially she could be discharged home if her white count remains stable, and she does not develop a fever. Initiate discharge planning. Benny Mandujano MD VS, I&O, 24H, [facility] Vital Signs/I&O Vital Signs Date Time Temp Pulse Resp B/P Pulse Ox O2 Delivery O2 Flow Rate FiO2 06/02/16 09:06 92 110/68 06/02/16 08:00 96.3 20 94 06/02/16 05:05 Room Air 05/27/16 08:00 2.0 I&O- Last 24 Hours up to 6 AM 06/02/16 06:00 Intake Total 600 ml Output Total 325 ml Balance 275 ml Laboratory Data 24H LABS Laboratory Tests 2 06/01/16 13:51: Osmolality 272L 06/01/16 19:53: Urine Random Chloride 17, Urine Random Osmolality 413L, Urine Random Sodium 28 06/02/16 04:56: Blood Urea Nitrogen 21H, Creatinine 0.73, Sodium Level 131L, Potassium Level 3.9 , Chloride Level 94L, Carbon Dioxide Level 25, Calcium Level 8.7L, Aspartate Amino Transf (AST/SGOT) 38H, Alanine Aminotransferase (ALT/SGPT) 44, Alkaline Phosphatase 90, Total Bilirubin 0.8, Total Protein 6.3L, Albumin 2.6L, Albumin/ Globulin Ratio 0.70L, Anion Gap 12, White Blood Count 14.9H, Red Blood Count 3.90L, Hemoglobin 11.6L, Hematocrit 34.2L, Mean Corpuscular Volume 87.7, Mean Corpuscular Hemoglobin 29.7, Mean Corpuscular Hemoglobin Concent 33.8, Red Cell Distribution Width 12.8, Platelet Count 437, Neutrophils (%) (Auto) 89.5H, Lymphocytes (%) (Auto) 4.1L, Monocytes (%) (Auto) 5.0, Eosinophils (%) (Auto) 0.2, Basophils (%) (Auto) 0.1, Neutrophils # (Auto) 13.3H, Lymphocytes # (Auto) 0.6L, Monocytes # (Auto) 0.8, Eosinophils # (Auto) 0.0, Basophils # (Auto) 0.0, Glomerular Filtration Rate > 60.0, Large Unclassified Cells # 0.2, Large Unclassified Cells % 1.0, Magnesium Level 1.9 CBC/BMP Laboratory Tests 06/02/16 04:56 Calcium Level 8.7 L, Aspartate Amino Transf (AST/SGOT) 38 H, Alanine Aminotransferase (ALT/SGPT) 44, Alkaline Phosphatase 90, Total Bilirubin 0.8, Total Protein 6.3 L, Albumin 2.6 L, Red Blood Count 3.90 L, Mean Corpuscular Volume 87.7, Mean Corpuscular Hemoglobin 29.7, Mean Corpuscular Hemoglobin Concent 33.8, Red Cell Distribution Width 12.8, Neutrophils (%) (Auto) 89.5 H, Lymphocytes (%) (Auto) 4.1 L, Monocytes (%) (Auto) 5.0, Eosinophils (%) (Auto) 0.2, Basophils (%) (Auto) 0.1, Neutrophils # (Auto) 13.3 H, Lymphocytes # (Auto ) 0.6 L, Monocytes # (Auto) 0.8, Eosinophils # (Auto) 0.0, Basophils # (Auto) 0.0 Microbiology Microbiology 05/26/16 Blood Culture - Final, Complete NO GROWTH AFTER 5 DAYS 05/26/16 Blood Culture - Final, Complete NO GROWTH AFTER 5 DAYS 05/26/16 Respiratory Virus Panel (PCR) (ISELA) - Final, Complete Adolfo HookerC Jun 02, 2016 09:45 BENNY MANDUJANO MD Jun 02, 2016 19:25
[2016-06-02 12:00] VITALS: BP 127/69
[2016-06-02 16:00] VITALS: BP 129/59
[2016-06-02] MEDS: RIVAROXABAN 20 MG TAB (XARELTO) PO SCH (18:12)
[2016-06-02 20:00] VITALS: BP 120/68
[2016-06-02] MEDS: zolPIDEM TARTRATE 5 MG TAB PO SCH (21:16)
[2016-06-02] MEDS: MIRTAZAPINE 15 MG TAB PO SCH (21:17)
[2016-06-03] VITALS (7 sets, daily range): BP systolic 129–171; BP diastolic 58–80
[2016-06-03] MEDS: SLF 3 ML SYR IV SCH ×3 (05:16→21:32)
[2016-06-03] MEDS: LEVOTHYROXINE 0.075 MG TAB (75 MCG) PO SCH (05:16)
[2016-06-03 06:15] LABS: BASO % 0.1 % (0.0-1.0); EOS % 0.2 % (0.0-3.0); LARGE UNSTAINED CELL # 0.2 K/mm3 (0.0-0.4); LARGE UNSTAINED CELL % 1.2 % (0.0-4.0); LYMPH # 0.6 K/mm3 (1.5-4.5); LYMPH % 3.8 % (24.0-44.0); MEAN CORPUSCULAR HEMOGLOBIN 29.6 pg (27.0-33.0); MEAN CORPUSCULAR HGB CONC 33.6 g/dl (32.0-36.5); MONO # 0.7 K/mm3 (0.0-0.8); MONO % 4.7 % (0.0-5.0); NEUTROPHILS # 14.3 K/mm3 (1.8-7.7); PLATELET COUNT, AUTOMATED 426 k/mm3 (150-450); RED CELL DISTRIBUTION WIDTH 12.9 % (11.5-14.5); WHITE BLOOD COUNT 15.8 K/mm3 (4.0-10.0)
[2016-06-03 06:41] LABS: ALBUMIN 2.5 GM/DL (3.2-5.2); ALBUMIN/GLOBULIN RATIO 0.69 (1.00-1.93); ALKALINE PHOSPHATASE 89 U/L (45-117); ALT/SGPT 82 U/L (12-78); ANION GAP 11 MEQ/L (8-16); AST/SGOT 55 U/L (15-37); BILIRUBIN,TOTAL 0.8 MG/DL (0.2-1.0); BLOOD UREA NITROGEN 24 MG/DL (7-18); CALCIUM LEVEL 9.4 MG/DL (8.8-10.2); CARBON DIOXIDE LEVEL 26 MEQ/L (21-32); CHLORIDE LEVEL 94 MEQ/L (98-107); GLOMERULAR FILTRATION RATE > 60.0 (>32); GLUCOSE, FASTING 118 MG/DL (83-110); POTASSIUM SERUM 4.1 MEQ/L (3.5-5.1); SODIUM LEVEL 131 MEQ/L (136-145); TOTAL PROTEIN 6.1 GM/DL (6.4-8.2)
[2016-06-03] MEDS: buPROPion (WELLBUTRIN SR) 100 MG SR TAB PO SCH (09:36)
[2016-06-03] MEDS: AUGMENTIN 875 MG TAB PO SCH (09:36)
[2016-06-03] MEDS: DOXYCYCLINE HYCLATE 100 MG TAB PO SCH (09:36)
[2016-06-03] MEDS: SPIRONOLACTONE 25 MG TAB PO SCH (09:36)
[2016-06-03] MEDS: MAGNESIUM OXIDE 400 MG TAB (MAG-OX) PO SCH ×2 (09:36→21:31)
[2016-06-03] MEDS: METOPROLOL TART 50 MG TAB PO SCH ×2 (09:37→21:32)
--- NOTE | 2016-06-03 09:42 | IPNPDOC ---
Subjective Date Seen The patient was seen on 06/03/16. Subjective Chief Complaint/HPI The patient is a 81-year-old female admitted with a reason for visit of Atrial Flutter With Rapid Ventricular Resp. Events since last encounter Seen this morning at the bedside in PCU. She's continuing to report poor appetite. She tripped and feel last evening trying to go to the bathroom. No reported residual pain. She, overall, feels week but is denies any chest pain, sob, n/v/d. She is reporting a mild, non-productive cough. WBC continues to increase again today. General: Reports: Normal Appetite, Denies: Chills, Fatigue, Malaise, Night Sweats Constitutional: Denies: Chills, Fever, Night Sweats Cardiovascular: Denies: Chest Pain, Orthopnea, Palpitations Gastrointestinal: Denies: Abdominal Pain, Nausea, Vomiting Musculoskeletal: Denies: Back Pain, Joint Pain, Muscle Pain, Neck Pain, Spasms Objective Physical Examination General Exam: Positive: Alert, No Acute Distress Eye Exam: Positive: Conjunctiva & lids normal, EOMI, PERRLA, Negative: Sclera icteric ENT Exam: Positive: Atraumatic, Mucous membr. moist/pink, Pharynx Normal Neck Exam: Positive: Supple, Negative: JVD Chest Exam: Positive: Clear to auscultation, Diminished, Other (+ SC adenopathy R>L) Heart Exam: Positive: Irregular Rhythm, Tachycardic, Negative: Murmurs Telemetry: Positive: Atrial fibrillation Abdomen Exam: Positive: Normal bowel sounds, Soft, Negative: Hepatospenomegaly, Tenderness Extremity Exam: Positive: Normal pulses, Negative: Clubbing, Cyanosis, Edema Skin Exam: Positive: Nl turgor and temperature, Negative: Breakdown, Rash Assessment /Plan Problems (1) Postobstructive pneumonia Status: Acute Problem Text: WBC up today again. No O2 req. On Augmentin and Doxy (changed ), Abx D 9 (received 7d zosyn/vanco). Slightly decreased today on R compared to L. Will repeat CXR. 05/08 recently dx lung masses. RVP neg Ag for strep/legionella neg Afebrile (2) Physical deconditioning Status: Acute Problem Text: Oral intake is poor. Mirtazapine started to help c appetite. Added ensure shakes BID. PT ordered. (3) Atrial flutter with rapid ventricular response Status: Acute Discussed With: Other Discussed With: (Dr. Roa) Problem Specific Plan: Consult Specialist Problem Text: 06/03- Stable from a cardiac standpoint and ready for dc on current regimen. Does continue to have intermittent episodes of tachycardia, but overall she's well-controlled. Lopressor/cardizem. 05/31 Dr. Roa added lopressor to her regimen yesterday evening, and her rates have been significantly improved, but she does remain intermittently tachycardic in the low 100s. We've confirmed that her insurance will cover Xarelto, so this has been instituted here as well. Overall, slowly improving. Optimistic for dc in the next day or so. 05/29 -Dr. Roa following, adjusting cardiac meds; appreciate his assistance. Cardizem has been increased. She's ambulating well. -Cardiac enzymes cycled, neg -Echo ordered -TSH WNL (4) Hypokalemia Status: Acute Problem Text: May be related to Zosyn. 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 Urine and serum osmols both decreased. 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 (7) Hypothyroid Status: Chronic Problem Text: Thyroid studies WNL upon admission. Continue synthroid (8) Anxiety Status: Chronic Problem Text: Controlled at home on Wellbutrin. Lorazepam was added as needed, but she has not required any PRN doses. Plan/VTE VTE Prophylaxis Ordered?: Yes (Xarelto) Plan Diet: Continue Current Activity: Encourage Ambulation VS, I&O, 24H, [place] Vital Signs/I&O Vital Signs Date Time Temp Pulse Resp B/P Pulse Ox O2 Delivery O2 Flow Rate FiO2 06/03/16 08:00 97.5 107 22 134/65 92 Room Air I&O- Last 24 Hours up to 6 AM 06/03/16 06:00 Intake Total 600 ml Output Total 900 ml Balance -300 ml Laboratory Data 24H LABS Laboratory Tests 2 06/03/16 05:50: Blood Urea Nitrogen 24H, Creatinine 0.80, Sodium Level 131L, Potassium Level 4.1 , Chloride Level 94L, Carbon Dioxide Level 26, Calcium Level 9.4, Aspartate Amino Transf (AST/SGOT) 55H, Alanine Aminotransferase (ALT/SGPT) 82H, Alkaline Phosphatase 89, Total Bilirubin 0.8, Total Protein 6.1L, Albumin 2.5L, Albumin/ Globulin Ratio 0.69L, Anion Gap 11, White Blood Count 15.8H, Red Blood Count 3.89L, Hemoglobin 11.5L, Hematocrit 34.2L, Mean Corpuscular Volume 88.0, Mean Corpuscular Hemoglobin 29.6, Mean Corpuscular Hemoglobin Concent 33.6, Red Cell Distribution Width 12.9, Platelet Count 426, Neutrophils (%) (Auto) 90.0H, Lymphocytes (%) (Auto) 3.8L, Monocytes (%) (Auto) 4.7, Eosinophils (%) (Auto) 0.2, Basophils (%) (Auto) 0.1, Neutrophils # (Auto) 14.3H, Lymphocytes # (Auto) 0.6L, Monocytes # (Auto) 0.7, Eosinophils # (Auto) 0.0, Basophils # (Auto) 0.0, Glomerular Filtration Rate > 60.0, Large Unclassified Cells # 0.2, Large Unclassified Cells % 1.2 06/03/16 09:08: Urine Amorphous Sediment , Urine Appearance CLEAR, Urine Color YELLOW, Urine pH 6.0, Urine Specific Angelica 1.019, Urine Protein NEGATIVE, Urine Glucose (UA) NEGATIVE, Urine Ketones 1+H, Urine Urobilinogen 2.0H, Urine Bilirubin NEGATIVE, Urine Leukocyte Esterase NEGATIVE, Urine Bacteria (Auto) NEGATIVE, Urine Blood NEGATIVE, Urine Calcium Carbonate Cryst(Auto) , Urine Calcium Oxalate Cryst ( Auto) , Urine Calcium Phosphate Dana (Auto) , Urine Cellular Casts , Urine Cystine Crystals , Urine Granular Casts (Auto) , Urine Hyaline Casts (Auto) 0, Urine Leucine Crystals , Urine Mucus (Auto) SMALL, Urine Nitrite NEGATIVE, Urine Oval Fat Bodies (Auto) , Urine RBC (Auto) 3, Urine Renal Epithelial Cells , Urine Sperm (Auto) , Urine Squamous Epithelial Cells 2, Urine Transitional Epithelial Cells , Urine Trichomonas (Auto) , Urine Triple Phosphate Cryst (Auto ) , Urine Tyrosine Crystals , Urine Uric Acid Crystals (Auto) , Urine WBC (Auto ) 3, Urine Waxy Casts (Auto) , Urine Yeast-Like Cells (Auto) CBC/BMP Laboratory Tests 06/03/16 05:50 Calcium Level 9.4, Aspartate Amino Transf (AST/SGOT) 55 H, Alanine Aminotransferase (ALT/SGPT) 82 H, Alkaline Phosphatase 89, Total Bilirubin 0.8, Total Protein 6.1 L, Albumin 2.5 L, Red Blood Count 3.89 L, Mean Corpuscular Volume 88.0, Mean Corpuscular Hemoglobin 29.6, Mean Corpuscular Hemoglobin Concent 33.6, Red Cell Distribution Width 12.9, Neutrophils (%) (Auto) 90.0 H, Lymphocytes (%) (Auto) 3.8 L, Monocytes (%) (Auto) 4.7, Eosinophils (%) (Auto) 0.2, Basophils (%) (Auto) 0.1, Neutrophils # (Auto) 14.3 H, Lymphocytes # (Auto ) 0.6 L, Monocytes # (Auto) 0.7, Eosinophils # (Auto) 0.0, Basophils # (Auto) 0.0 Microbiology Microbiology 05/26/16 Blood Culture - Final, Complete NO GROWTH AFTER 5 DAYS 05/26/16 Blood Culture - Final, Complete NO GROWTH AFTER 5 DAYS 05/26/16 Respiratory Virus Panel (PCR) (ISELA) - Final, Complete 06/03/16 Urine Culture, Received Pending THEA SWAN DO Jun 03, 2016 09:42
--- NOTE | 2016-06-03 10:51 | REP ---
CHEST, TWO VIEWS: Two views of the chest are performed. Comparison made with a prior study of 05/29/2016. There is increased parenchymal and pleural opacity in the right lung base. The cardiomediastinal silhouette is unchanged. No new infiltrate is seen in the left lung. IMPRESSION: Increased right basilar and pleural and parenchymal opacity. Signed by Brandon Hooper MD 06/03/2016 04:55 P
[2016-06-03 12:06] LABS: BILIRUBIN,DIRECT 0.3 MG/DL (0.0-0.2)
--- NOTE | 2016-06-03 15:55 | IPN ---
DATE: 06/03/2016 I met with Kasia, her Timoteo, and other family members. We discussed the results of her lung biopsy. 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 She has supraclavicular adenopathy which was perhaps present last office visit a few weeks ago but is quite prominent now. She say she notes that the area is becoming more swollen by the day. She has a postobstructive pneumonia. Her white count is up today and her chest x-ray suggests the possibility of a pleural effusion. I spoke with the patient and her family at length about the biopsy. I gave them the information from the [employer] [place] on nonsmall-cell lung cancer. They are requesting an oncology consultation during this hospitalization and I will put in an oncology consultation. We are getting a stat CT scan of the chest to look for a pleural effusion. If that is present, we will discuss the case with appropriate specialty care.
--- NOTE | 2016-06-03 16:26 | REP ---
CT CHEST WITHOUT IV CONTRAST: CT chest is performed without IV contrast. Sagittal and coronal reconstruction images are performed. Comparison is made with prior study of 05/24/2016. New moderate right pleural effusion is present as well as a new small left pleural effusion. There is mild new left lower lobe atelectasis/infiltrate. There is also again identified soft tissue mass like opacity in the right lower lobe with some adjacent atelectasis/infiltrate. There is again evidence of extensive mediastinal adenopathy and right hilar adenopathy. There is a mild amount of posterior pericardial fluid. There are multiple cysts in the liver. There is diffuse thickening of the left adrenal gland There are underlying chronic fibrotic changes and emphysematous changes in the lungs with mild central bronchiectasis. IMPRESSION: New small left pleural effusion and moderate right effusion. New mild bibasilar atelectasis/infiltrate. New mild posterior pericardial fluid. No significant change in extensive mediastinal and right hilar adenopathy. Signed by Brandon Hooper MD 06/03/2016 05:07 P
--- NOTE | 2016-06-03 16:50 | IPN ---
DATE: I spoke with Kasia's family as well as Kasia about her biopsy diagnosis and possible prognosis. This was discussed at length. I discussed the case with Dr. Marin from oncology who will see the patient in consultation. CT scan of the chest confirmed the parapneumonic effusion, raising the possibility of empyema (or bleeding secondary to anticoagulant). I reviewed the case with Dr. Félix Delgado who will see the patient in consultation. He has discussed the case with interventional radiology, making arrangements for pigtail catheter drainage of the pleural effusion versus empyema tomorrow. We will hold the patient's Xarelto tonight and can restart this after the procedure. She is on it for thromboembolic prophylaxis for atrial fibrillation and interrupting this briefly should not significantly increase her risk of embolism. We are putting her back on IV antibiotics in the face of the worsening clinical course on oral antibiotics.
[2016-06-03] MEDS: PIPERACILLIN/TAZOBACTAM SOD 3.375 GM in D5W MINI-BAG PLUS 50 ML IV SCH ×2 (17:39→23:43)
[2016-06-03] MEDS: DOXYCYCLINE HYCLATE 100 MG in D5W MINI-BAG PLUS 100 ML IV SCH (17:39)
[2016-06-03] MEDS: NYSTATIN 500,000 U/5 ML SUSP UDC SS SCH ×2 (17:40→21:32)
--- NOTE | 2016-06-03 19:37 | CR ---
DATE OF CONSULTATION: 06/03/2016 REQUESTING PHYSICIAN: Dr. Marx REASON FOR CONSULTATION: Increasing pleural effusion and known right lower lobe lung mass, which is now biopsy proven carcinoma. Mrs. Sandoval is an 81-year-old white female whose story starts about 1-1/2 weeks ago when she developed cough with green sputum production. The cough was quite persistent. Her had developed an upper respiratory tract infection just prior to that and she felt that this was also a upper respiratory infection. However, the cough persisted. She felt hot but did not have any chills. She does not complain of shortness of breath and was able to do all the daily activities of living. She denies having lost any weight. There is no chest pain except which is brought on by long periods of coughing. She does not have any pain with inspiration. There is no dysphagia. She was admitted to the emergency room this past Thursday with tachycardia, which was found to be atrial fibrillation with a rapid ventricular response. She was then placed on Xarelto and has been maintained on diltiazem and Lopressor. Her only other past medical illness is hypothyroidism, for which she takes Synthroid. When she presented about 1-1/2 weeks ago to an urgent care in [place], a chest x-ray was taken where she was found to have a right lower lobe lung mass. Since then, CT scan has confirmed a large left lower lobe lung mass, along with mediastinal lymphadenopathy, both paratracheally and inferiorly behind the left atrium. She has also noted lumps and bumps in her neck over the last couple of days. PAST MEDICAL HISTORY: 1. Hypothyroidism. 2. Diverticulitis. PAST SURGICAL HISTORY: Tubal ligation. MEDICATIONS: At home: - Synthroid 75 mcg daily - ranitidine 150 mg twice a day - Drisdol 50,000 units every two weeks - bupropion SR 1000 mg daily TRAVEL HISTORY: They have been to [place] and to the [facility]. They have also been to [facility] but no travel outside the [facility] other than [facility]. OCCUPATIONAL HISTORY: Used to work for [employer] There is no asbestos exposure. OTHER EXPOSURES: No dogs, cats, or birds at home. Both her mother and father had tuberculosis with one of her parents dying of tuberculosis. HABITS: Smoked one pack per day of reservation cigarettes. Drinks occasionally but socially. FAMILY HISTORY: See above. REVIEW OF SYSTEMS: CONSTITUTIONAL: See history of present illness. Also, additionally complains of increasing fatigue and tiredness. EYES: Without diplopia. Without amaurosis fugax. Without prior jaundice. NOSE: Without epistaxis. MOUTH: Has her own teeth. PULMONARY: See history of present illness. CARDIAC: See history of present illness. Denies prior myocardial infarctions or intermittent claudication. GASTROINTESTINAL: Without nausea, vomiting, diarrhea, constipation, melena, hematochezia, abdominal pain or hematemesis. GENITOURINARY: Without dysuria or hematuria. Without prior history of renal stones. NEUROLOGIC: Without paresthesias, paralyses or seizures. ENDOCRINE: Without diabetes. With hypothyroidism. PSYCHIATRIC: Without pathological anxiety, depressions, although she is on bupropion. PHYSICAL EXAMINATION: VITAL SIGNS: Show a temperature of 97.5 with a heart rate of 105 in atrial fibrillation with a respiratory rate of 24. She is 94% saturated on room air and her blood pressure is 132/79. She has never been febrile in the hospital. HEAD: Normocephalic. EYES: Pupils are equal, round and reactive to light. Extraocular motors are intact. Sclerae nonicteric. NOSE: Without deformity. MOUTH: Shows mucous membranes to be pink and moist. Lips and commissures without lesions. It looks as though she has significant thrush. NECK: Supple. There is no jugular venous distention (JVD). No subcutaneous emphysema. Trachea is midline. She has bilateral supraclavicular lymphadenopathy. There is no cervical lymphadenopathy. There are no carotid bruits. She has 2+ carotid upstrokes. There is no thyromegaly. LUNGS: Show transmitted breath sounds in the right lower hemithorax with a dull percussion note in the right lower hemithorax. I hear no other wheezing, rhonchi or rales. CARDIAC: Shows distant heart sounds. I cannot feel her PMI. S1, S2 are normal. I hear no murmurs, clicks, gallops or rubs. ABDOMEN: Soft, nontender. Bowel sounds positive. There is no hepatosplenomegaly. No costovertebral angle tenderness. There are no aortic or renal bruits. EXTREMITIES: Show trace pretibial edema. No calf tenderness. No differential swelling of the upper extremities. SKIN: Warm, dry and perfuse without cyanosis or mottling, including that of the nail beds and the knees. NEUROLOGIC: Shows II through XII intact with gross motor and gross sensation intact. Gait is not tested. PSYCHIATRIC: Shows her to be awake, alert, and oriented times three with appropriate mood and affect and conversational. Her white count is now 15.8, up from 9.6 on 05/30/2016. Hemoglobin and hematocrit are 11.5 and 34.2, essentially unchanged from admission with a platelet count of 426. Differential shows 90% neutrophils, 30% lymphocytes, 4% monocytes. There are no immature forms and no toxic granulations. Electrolytes show a sodium of 131 with a BUN and creatinine of 24 and 0.8, glucose of 118 and a calcium of 9.4 with a corresponding albumin of 2.5. Magnesium was 1.9 yesterday. Her chest x-ray today, when compared to her admission chest x-ray of 05/29/2016 shows a right pleural effusion with an increasing infiltrative process in the right lower lobe. Lateral chest x-ray also shows additional fluid today. A chest CT done today without contrast shows a large right lower lobe lesion. This was seen on a chest CT on 05/24/2016. It is a bilobed tumor, which continues superiorly. She has massive amounts of paratracheal and retrocardiac lymphadenopathy. Additionally, she has a large amount of hilar lymphadenopathy, which looks as though it is now compressing the right lower lobe bronchi. That is also combined with what looks to be lung consolidation. She is presently on Zosyn as an antibiotic. She was on vancomycin up until 05/31/2016 when her trough was 14.6, within the therapeutic window. Pathology shows her to have a poorly differentiated non-small cell carcinoma. All markers are negative. Pathology is still thinking that this is going to be a poorly differentiated adenocarcinoma. IMPRESSION: 1. 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 This is therefore a stage IV lesion with metastases outside the chest. 2. Hypothyroidism. 3. Thrush. 4. Postobstructive right lower lobe pneumonia. 5. Pleural effusion, possible empyema. PLAN/DISCUSSION: I will have her pleural fluid drained with a pigtail catheter tomorrow. We will take her off the Brendan dyer. I will treat her for thrush.
[2016-06-03] MEDS: MIRTAZAPINE 15 MG TAB PO SCH (21:31)
[2016-06-04] VITALS: BP 117/61
[2016-06-04 04:00] VITALS: BP 140/62
[2016-06-04] MEDS: LEVOTHYROXINE 0.075 MG TAB (75 MCG) PO SCH (05:00)
[2016-06-04] MEDS: SLF 3 ML SYR IV SCH ×3 (05:00→21:18)
[2016-06-04] MEDS: DOXYCYCLINE HYCLATE 100 MG in D5W MINI-BAG PLUS 100 ML IV SCH ×2 (05:00→17:49)
[2016-06-04 05:49] LABS: BASO % 0.1 % (0.0-1.0); EOS # 0.1 K/mm3 (0.0-0.50); EOS % 0.6 % (0.0-3.0); LARGE UNSTAINED CELL # 0.1 K/mm3 (0.0-0.4); LARGE UNSTAINED CELL % 0.9 % (0.0-4.0); LYMPH # 0.6 K/mm3 (1.5-4.5); LYMPH % 3.9 % (24.0-44.0); MEAN CORPUSCULAR HEMOGLOBIN 29.6 pg (27.0-33.0); MEAN CORPUSCULAR HGB CONC 33.6 g/dl (32.0-36.5); MEAN CORPUSCULAR VOLUME 88.3 fl (80.0-96.0); MONO # 0.7 K/mm3 (0.0-0.8); MONO % 4.9 % (0.0-5.0); NEUTROPHILS # 13.5 K/mm3 (1.8-7.7); NEUTROPHILS % 89.6 % (36.0-66.0); PLATELET COUNT, AUTOMATED 418 k/mm3 (150-450); RED CELL DISTRIBUTION WIDTH 13.1 % (11.5-14.5); WHITE BLOOD COUNT 15.1 K/mm3 (4.0-10.0)
[2016-06-04 06:06] LABS: ANION GAP 11 MEQ/L (8-16); BLOOD UREA NITROGEN 23 MG/DL (7-18); CALCIUM LEVEL 9.3 MG/DL (8.8-10.2); CARBON DIOXIDE LEVEL 27 MEQ/L (21-32); CHLORIDE LEVEL 94 MEQ/L (98-107); CREATININE FOR GFR 0.77 MG/DL (0.55-1.02); GLOMERULAR FILTRATION RATE > 60.0 (>32); GLUCOSE, FASTING 120 MG/DL (83-110); POTASSIUM SERUM 3.7 MEQ/L (3.5-5.1); SODIUM LEVEL 132 MEQ/L (136-145)
--- NOTE | 2016-06-04 07:43 | IPNPDOC ---
Subjective Date Seen The patient was seen on 06/04/16. Subjective Chief Complaint/HPI The patient is a 81-year-old female admitted with a reason for visit of Atrial Flutter With Rapid Ventricular Resp. Events since last encounter No acute overnight events General: Reports: Normal Appetite, Denies: Chills, Fatigue, Malaise, Night Sweats Constitutional: Denies: Chills, Fever, Night Sweats Pulmonary: Denies: Cough, Dyspnea Cardiovascular: Denies: Chest Pain, Lt Headedness, Orthopnea, Palpitations, Paroxysmal Noc. Dyspnea Gastrointestinal: Reports: Other Symptoms (depressed appetite), Denies: Abdominal Pain, Constipation, Diarrhea, Nausea, Vomiting Musculoskeletal: Denies: Back Pain, Joint Pain, Muscle Pain, Neck Pain, Spasms Neurological: Reports: Weakness, Denies: Incoordination, Numbness Objective Physical Examination General Exam: Positive: Alert, No Acute Distress Eye Exam: Positive: Conjunctiva & lids normal, EOMI, PERRLA, Negative: Sclera icteric ENT Exam: Positive: Atraumatic, Mucous membr. moist/pink, Pharynx Normal Neck Exam: Positive: Supple, Negative: JVD Chest Exam: Positive: Clear to auscultation, Diminished, Other (+ SC adenopathy R>L) Heart Exam: Positive: Irregular Rhythm, Tachycardic, Negative: Murmurs Telemetry: Positive: Atrial fibrillation Abdomen Exam: Positive: Normal bowel sounds, Soft, Negative: Hepatospenomegaly, Tenderness Extremity Exam: Positive: Normal pulses, Negative: Clubbing, Cyanosis, Edema Skin Exam: Positive: Nl turgor and temperature, Negative: Breakdown, Rash Assessment /Plan Problems (1) Non-small cell cancer of right lung Status: Acute Problem Specific Plan: Consult Specialist Problem Text: + mediastinal nodes / SCL adenopathy. Oncology consulted for further workup re: staging, tx, prognosis. 06/04 JFW--case d/w Dr Marin 06/03, 06/04--- note still pending (2) Pleural effusion Status: Acute Problem Specific Plan: Consult Specialist (Dr. Delgado) Problem Text: Parapneumonic vs malignant. Undergoing pigtail catheter drainage today. Xarelto held last evening. JFW: xarelto restarted today (3) Postobstructive pneumonia Status: Acute Problem Text: D10 ABX, switched back to Zosyn for worsening infiltrates on CXR. WBC improving. Remains asymptomatic/Afebrile. (4) Physical deconditioning Status: Acute Problem Text: Oral intake is poor. Mirtazapine started to help c appetite. Added ensure shakes BID. PT ordered. (5) Atrial flutter with rapid ventricular response Status: Acute Discussed With: Other Discussed With: (Dr. Roa) Problem Specific Plan: Consult Specialist Problem Text: 06/04 Xarelto held yesterday evening for procedure today. Resume tonight. JFW: HR 130-140s. at flutter/fib on TM. I don't think the diltiazem is doing much. Will dc diltia, inc metop dose to 50 mg q 6 hrs 06/03- Stable from a cardiac standpoint and ready for dc on current regimen. Does continue to have intermittent episodes of tachycardia, but overall she's well-controlled. Lopressor/cardizem. 05/31 Dr. Roa added lopressor to her regimen yesterday evening, and her rates have been significantly improved, but she does remain intermittently tachycardic in the low 100s. We've confirmed that her insurance will cover Xarelto, so this has been instituted here as well. Overall, slowly improving. Optimistic for dc in the next day or so. 05/29 -Cardiac enzymes cycled, neg -Echo ordered -TSH WNL (6) Hypokalemia Status: Acute Problem Text: May be related to Zosyn. Repleted, started on aldactone Continue to monitor closely (7) Hyponatremia Status: Acute Response to Treatment: Worse Problem Text: Likely SIADH based on serum/urine osmols (8) Hypothyroid Status: Chronic Problem Text: Thyroid studies WNL upon admission. Continue synthroid (9) Anxiety Status: Chronic Problem Text: Controlled at home on Wellbutrin. Lorazepam was added as needed, but she has not required any PRN doses. Plan/VTE VTE Prophylaxis Ordered?: Yes (Xarelto) Plan Diet: Continue Current Activity: Encourage Ambulation Disposition 06/04-- met with pt/family at length 06/03, 06/04. requests walker and tub bench--sent to [facility] from [facility] VS, I&O, 24H, [facility] Vital Signs/I&O Vital Signs Date Time Temp Pulse Resp B/P Pulse Ox O2 Delivery O2 Flow Rate FiO2 06/04/16 04:00 96.7 114 18 140/62 95 Room Air I&O- Last 24 Hours up to 6 AM 06/04/16 06:00 Intake Total 180 ml Output Total 1075 ml Balance -895 ml Laboratory Data 24H LABS Laboratory Tests 2 06/03/16 09:08: Urine Amorphous Sediment , Urine Appearance CLEAR, Urine Color YELLOW, Urine pH 6.0, Urine Specific [place] 1.019, Urine Protein NEGATIVE, Urine Glucose (UA) NEGATIVE, Urine Ketones 1+H, Urine Urobilinogen 2.0H, Urine Bilirubin NEGATIVE, Urine Leukocyte Esterase NEGATIVE, Urine Bacteria (Auto) NEGATIVE, Urine Blood NEGATIVE, Urine Calcium Carbonate Cryst(Auto) , Urine Calcium Oxalate Cryst ( Auto) , Urine Calcium Phosphate Dana (Auto) , Urine Cellular Casts , Urine Cystine Crystals , Urine Granular Casts (Auto) , Urine Hyaline Casts (Auto) 0, Urine Leucine Crystals , Urine Mucus (Auto) SMALL, Urine Nitrite NEGATIVE, Urine Oval Fat Bodies (Auto) , Urine RBC (Auto) 3, Urine Renal Epithelial Cells , Urine Sperm (Auto) , Urine Squamous Epithelial Cells 2, Urine Transitional Epithelial Cells , Urine Trichomonas (Auto) , Urine Triple Phosphate Cryst (Auto ) , Urine Tyrosine Crystals , Urine Uric Acid Crystals (Auto) , Urine WBC (Auto ) 3, Urine Waxy Casts (Auto) , Urine Yeast-Like Cells (Auto) 06/04/16 05:21: Anion Gap 11, White Blood Count 15.1H, Red Blood Count 4.07, Hemoglobin 12.1, Hematocrit 35.9L, Mean Corpuscular Volume 88.3, Mean Corpuscular Hemoglobin 29.6 , Mean Corpuscular Hemoglobin Concent 33.6, Red Cell Distribution Width 13.1, Platelet Count 418, Neutrophils (%) (Auto) 89.6H, Lymphocytes (%) (Auto) 3.9L, Monocytes (%) (Auto) 4.9, Eosinophils (%) (Auto) 0.6, Basophils (%) (Auto) 0.1, Neutrophils # (Auto) 13.5H, Lymphocytes # (Auto) 0.6L, Monocytes # (Auto) 0.7, Eosinophils # (Auto) 0.1, Basophils # (Auto) 0.0, Blood Urea Nitrogen 23H, Creatinine 0.77, Sodium Level 132L, Potassium Level 3.7, Chloride Level 94L, Carbon Dioxide Level 27, Calcium Level 9.3, Glomerular Filtration Rate > 60.0, Large Unclassified Cells # 0.1, Large Unclassified Cells % 0.9 CBC/BMP Laboratory Tests 06/04/16 05:21 Calcium Level 9.3, Red Blood Count 4.07, Mean Corpuscular Volume 88.3, Mean Corpuscular Hemoglobin 29.6, Mean Corpuscular Hemoglobin Concent 33.6, Red Cell Distribution Width 13.1, Neutrophils (%) (Auto) 89.6 H, Lymphocytes (%) (Auto) 3.9 L, Monocytes (%) (Auto) 4.9, Eosinophils (%) (Auto) 0.6, Basophils (%) (Auto ) 0.1, Neutrophils # (Auto) 13.5 H, Lymphocytes # (Auto) 0.6 L, Monocytes # ( Auto) 0.7, Eosinophils # (Auto) 0.1, Basophils # (Auto) 0.0 Microbiology Microbiology 05/26/16 Blood Culture - Final, Complete NO GROWTH AFTER 5 DAYS 05/26/16 Blood Culture - Final, Complete NO GROWTH AFTER 5 DAYS 05/26/16 Respiratory Virus Panel (PCR) (ISELA) - Final, Complete 06/03/16 Urine Culture, Received Pending THEA SWAN DO Jun 04, 2016 07:43 Warren Marx MD Jun 04, 2016 15:01
[2016-06-04 08:00] VITALS: BP 124/57
[2016-06-04] MEDS: SPIRONOLACTONE 25 MG TAB PO SCH (09:50)
[2016-06-04] MEDS: NYSTATIN 500,000 U/5 ML SUSP UDC SS SCH ×4 (09:50→21:17)
[2016-06-04] MEDS: MAGNESIUM OXIDE 400 MG TAB (MAG-OX) PO SCH ×2 (09:50→21:17)
[2016-06-04] MEDS: buPROPion (WELLBUTRIN SR) 100 MG SR TAB PO SCH (09:50)
[2016-06-04] MEDS: PIPERACILLIN/TAZOBACTAM SOD 3.375 GM in D5W MINI-BAG PLUS 50 ML IV SCH ×2 (09:50→17:00)
[2016-06-04] MEDS: METOPROLOL TART 50 MG TAB PO SCH ×3 (09:51→17:50)
[2016-06-04 13:09] LABS: LDH, BODY FLUID 847 U/L (NOT ESTABLISHED); TOTAL PROTEIN, BODY FLUID 2.6 G/DL (NOT ESTABLISHED)
--- NOTE | 2016-06-04 13:37 | REP ---
TWO VIEW CHEST: Two view of the chest are performed. There is placement of a pigtail drainage catheter inferiorly in the right hemithorax. The amount of right pleural fluid has diminished. There is no pneumothorax. Stable adjacent parenchymal opacity is seen. There is mild residual pleural fluid remaining on the right. There is a small left effusion. The remainder of the study is unchanged. IMPRESSION: Placement of right hemithorax pigtail drainage catheter with decreased right pleural fluid. No pneumothorax. Signed by Brandon Hooper MD 06/04/2016 05:23 P
[2016-06-04] MEDS: PERCOCET 5MG/325MG TAB PO PRN ×2 (13:44→21:17)
[2016-06-04] MEDS ORDERED: NORCO, ANEXSIA 5/325MG TABLET (HYDROcodone/ACETAMINOPHEN) PO PRN (13:45)
--- NOTE | 2016-06-04 14:20 | IPN ---
DATE: 06/04/2016 Mrs. Sandoval has just gotten back from her pigtail catheter placement. By reports, 200 mL was removed. Limited information is back right now, but the fluid LDH is 847, making it look as if it is exudative. She is feeling fairly well and her pain is being well controlled with oral pain medications. She is not complaining of shortness of breath. Her vital signs show a T-max of 97.5 with a heart rate that is ranging between 133 and 114 in atrial fibrillation with a respiratory rate of 18 to 24 without the use of accessory muscles who is 94% saturated on room air and whose blood pressure is ranging between 140/62 to 117/61. Her intake and output the past 24 hours has been recorded as 180 in and 1000 out for a negativity of 820 mL. All of her output has been from urine. Weight today is 63.3 kg compared to 63.4 kg yesterday. On physical examination, she has equal breath sounds on either side. I hear some occasional crackles in the right lower hemithorax. They are scattered. Percussion notes are full to the diaphragm. Cardiac Exam: Without murmurs, clicks, gallops, or rubs. I cannot feel her PMI. S1, S2 are normal. Abdomen: Soft. Nontender. Bowel sounds are positive. There is no hepatomegaly and no costovertebral angle (CVA) tenderness. Extremities: Without pretibial edema. Without calf tenderness. Without differential swelling of the upper extremities. Skin: Warm, dry and perfused. Without cyanosis or mottling, including that of the nail beds and knees. Neck: Supple. There is no jugular venous distention. No subcutaneous emphysema. Trachea is midline. Mouth: Shows her mucous membranes to be pink and moist. Lips and commissures are without lesions. There is no thrush. Eyes: Show her pupils to be equal and reactive. Extraocular movements intact. Sclerae nonicteric. Neurologic: Shows II-XII intact along with gross motor and gross sensation intact. Gait is not tested. Psychiatric shows her to be awake, alert, and oriented times three with appropriate mood and affect and conversational. INVESTIGATIONS: Her white count is down to 15.1 and continues to fall. Hemoglobin and hematocrit are 12.1 and 35.9, which is somewhat increased from 11.5 yesterday. Platelet count is 418 and differential shows 89% neutrophils, 3% lymphocytes and 4% monocytes. There are no immature forms and no toxic granulations. Electrolytes show a marginally low sodium of 132 with the remainder of electrolytes normal with a BUN and creatinine of 11 and 23. Glucose is 120 with a calcium of 9.3. Urine culture has been reported back as no growth. The pleural fluid cultures of course are still pending as they were just drawn. Her chest x-ray after her drainage shows the pigtail catheter in good place. The right lower lobe mass is present. There is minor blunting now of the costophrenic angle. Compared with the chest x-ray done yesterday the costophrenic angle is indeed sharp and almost all the fluid has been drained out from it. IMPRESSION: 1. Right pleural effusion, probably parapneumonic. 2. Metastatic non small cell carcinoma, probably adenocarcinoma to the mediastinum inferiorly and superiorly and spread to the supraclavicular nodes. Stage IV disease. 3. Hypothyroidism. 4. Thrush. 5. Post obstructive right lower lobe pneumonia. PLAN AND DISCUSSION: We will await further pathology testing. I do think this is going to returner to be a parapneumonic effusion. She is on an antibiotic for her post obstructive pneumonia which now consists of Zosyn. Her thrush is resolving with the Nystatin.
[2016-06-04 14:38] LABS: RBC PLEURAL FLUID 13 (<10mm3 cells/uL); TNC PLEURAL FLUID 633 cells/uL (0-20)
[2016-06-04 14:51] LABS: BF DIFF IF INDICATED? YES (NO)
[2016-06-04 16:00] VITALS: BP 129/92
[2016-06-04] MEDS: RIVAROXABAN 20 MG TAB (XARELTO) PO SCH (17:44)
--- NOTE | 2016-06-04 18:22 | REP ---
ULTRASOUND GUIDED RIGHT THORACENTESIS WITH CATHETER PLACEMENT: The procedure was performed under the direct supervision of Dr. Vera. The risks and benefits of the procedure were explained to the patient and informed consent was obtained. The right pleural effusion was localized using ultrasound guidance. The skin was prepped and draped in a sterile fashion. 1% Lidocaine was used as a local anesthetic. Using ultrasound guidance a 10-Uzbek Skater APDL catheter was inserted using trocar technique. 200 mL of low viscosity red colored fluid was withdrawn and sent to the lab. The catheter was affixed to the skin and a sterile dressing was applied. The catheter was connected to a Pleur-evac. The patient tolerated the procedure well and there were no immediate complications. Reviewed by ALEKSANDER Hawkins 06/05/2016 04:02 PEdited and Signed by Parish Vera MD 06/05/2016 05:02 [place]
[2016-06-04 20:00] VITALS: BP 102/50
[2016-06-04 21:09] LABS: CC BF DIFF EXAM CYTOCENTRIFUGE
[2016-06-04] MEDS: MIRTAZAPINE 15 MG TAB PO SCH (21:17)
[2016-06-04 23:59] VITALS: BP 141/63
[2016-06-05] MEDS: PIPERACILLIN/TAZOBACTAM SOD 3.375 GM in D5W MINI-BAG PLUS 50 ML IV SCH ×4 (00:47→23:54)
[2016-06-05] MEDS: METOPROLOL TART 50 MG TAB PO SCH ×5 (00:47→23:54)
[2016-06-05 04:00] VITALS: BP 114/56
[2016-06-05] MEDS: DOXYCYCLINE HYCLATE 100 MG in D5W MINI-BAG PLUS 100 ML IV SCH ×2 (05:02→16:50)
[2016-06-05] MEDS: SLF 3 ML SYR IV SCH ×3 (05:03→20:16)
[2016-06-05] MEDS: LEVOTHYROXINE 0.075 MG TAB (75 MCG) PO SCH (05:03)
[2016-06-05 06:02] LABS: BASO % 0.1 % (0.0-1.0); EOS # 0.1 K/mm3 (0.0-0.50); EOS % 0.6 % (0.0-3.0); LARGE UNSTAINED CELL # 0.2 K/mm3 (0.0-0.4); LARGE UNSTAINED CELL % 1.1 % (0.0-4.0); LYMPH # 0.7 K/mm3 (1.5-4.5); LYMPH % 5.1 % (24.0-44.0); MEAN CORPUSCULAR HEMOGLOBIN 29.7 pg (27.0-33.0); MEAN CORPUSCULAR HGB CONC 33.9 g/dl (32.0-36.5); MEAN CORPUSCULAR VOLUME 87.4 fl (80.0-96.0); MONO # 0.7 K/mm3 (0.0-0.8); MONO % 5.3 % (0.0-5.0); NEUTROPHILS % 87.7 % (36.0-66.0); PLATELET COUNT, AUTOMATED 418 k/mm3 (150-450); RED CELL DISTRIBUTION WIDTH 13.2 % (11.5-14.5); WHITE BLOOD COUNT 13.7 K/mm3 (4.0-10.0)
[2016-06-05 06:08] LABS: CALCIUM LEVEL 9.1 MG/DL (8.8-10.2); CREATININE FOR GFR 0.99 MG/DL (0.55-1.02); POTASSIUM SERUM 3.7 MEQ/L (3.5-5.1)
[2016-06-05 07:30] VITALS: BP 119/61
--- NOTE | 2016-06-05 07:57 | IPNPDOC ---
Subjective Date Seen The patient was seen on 06/05/16. Subjective Chief Complaint/HPI The patient is a 81-year-old female admitted with a reason for visit of Atrial Flutter With Rapid Ventricular Resp. Events since last encounter Seen this morning in PCU. Pigtail catheter placed yesterday; fluid analysis looks to be exudative. She remains weak and appetite poor, however, she's been making an effort to drink her ensure shakes c meals. General: Reports: Normal Appetite, Denies: Chills, Fatigue, Malaise, Night Sweats Constitutional: Reports: Malaise, Weakness, Denies: Chills, Fever, Night Sweats Eyes: Denies: Pain, Vision change ENT: Denies: Dysphagia, Ear Pain, Head Aches Pulmonary: Denies: Cough, Dyspnea Cardiovascular: Denies: Chest Pain, Lt Headedness, Orthopnea, Palpitations, Paroxysmal Noc. Dyspnea Gastrointestinal: Denies: Abdominal Pain, Constipation, Diarrhea, Nausea, Vomiting Hematologic: Denies: Bleeding Excessively, Bruising Objective Physical Examination General Exam: Positive: Alert, No Acute Distress Eye Exam: Positive: Conjunctiva & lids normal, EOMI, PERRLA, Negative: Sclera icteric ENT Exam: Positive: Atraumatic, Mucous membr. moist/pink, Pharynx Normal Neck Exam: Positive: Supple, Negative: JVD Chest Exam: Positive: Clear to auscultation, Diminished, Other (+ SC adenopathy R>L. right sided pigtail catheter in place, draining bloody fluid) Heart Exam: Positive: Irregular Rhythm, Tachycardic, Negative: Murmurs Telemetry: Positive: Atrial fibrillation Abdomen Exam: Positive: Normal bowel sounds, Soft, Negative: Hepatospenomegaly, Tenderness Extremity Exam: Positive: Normal pulses, Negative: Clubbing, Cyanosis, Edema Skin Exam: Positive: Nl turgor and temperature, Negative: Breakdown, Rash Assessment /Plan Problems (1) Non-small cell cancer of right lung Status: Acute Discussed With: Contact Center Engineer Problem Specific Plan: Consult Specialist Problem Text: Likely stage IV based on likely spread to mediastinal nodes ( seen on CT) and supraclavicular adenopathy bilaterally. She'll need a PET as an outpt. -Dr. Marin consulted, appreciate his input. -Final pathology pending. -A considerable amount of time has been dedicated to providing counselling, anticipatory guidance, and education to the patient and her . (2) Pleural effusion Status: Acute Problem Specific Plan: Consult Specialist (Dr. Delgado) Problem Text: S/P pigtail catheter drainage. Exudative effusion based on Light' s criteria of pleural fluid analysis. Cx pending. Underlying postobstructive pneumonia is being tx c zosyn. -cytology is pending. Catheter remains in place until definitive dx has been made. Appreciate assistance from Dr. Delgado (3) Postobstructive pneumonia Status: Acute Problem Text: D11 ABX, Zosyn. Afebrile. WBC improving. Remains asymptomatic. (4) Atrial flutter with rapid ventricular response Status: Acute Discussed With: Other Discussed With: (Dr. Roa) Problem Specific Plan: Consult Specialist Problem Text: Anticoagulated- Xarelto. 3/- Cardizem was dc 2/2 HR 130-140; toprol increased to 50 q6. HRs improved to 110s. BPs low normal but acceptable (110s) Cardiac enzymes cycled, neg on admission -TSH WNL -Echo s evidence of thrombus: 1. Probably normal global left ventricular systolic function. There was mild concentric left ventricular hypertrophy. 2. Aortic valve sclerosis with trace aortic regurgitation, but no aortic stenosis. 3. Mildly enlarged left atrium with mitral annulus calcification and mild mitral regurgitation. 4. Moderate tricuspid regurgitation with mild pulmonary hypertension. 5. There were findings consistent with elevated central venous pressure. (5) Physical deconditioning Status: Acute Problem Text: Oral intake is poor. Mirtazapine started to help c appetite. Added ensure shakes BID. Receiving PT. (6) Hypokalemia Status: Acute Problem Text: May be related to Zosyn. 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 Remains stable/ asymptomatic low 130s (8) Hypothyroid Status: Chronic Problem Text: Thyroid studies WNL upon admission. Continue synthroid (9) Anxiety Status: Chronic Problem Text: Controlled at home on Wellbutrin. Lorazepam was added as needed, but she has not required any PRN doses. Plan/VTE VTE Prophylaxis Ordered?: Yes (Xarelto) Plan Diet: Continue Current Activity: Encourage Ambulation VS, I&O, 24H, Fishbone Vital Signs/I&O Vital Signs Date Time Temp Pulse Resp B/P Pulse Ox O2 Delivery O2 Flow Rate FiO2 06/05/16 05:03 112 114/56 06/05/16 04:00 96.9 20 Room Air 06/04/16 21:47 94 2.0 I&O- Last 24 Hours up to 6 AM 06/05/16 06:00 Intake Total 1170 ml Output Total 1310 ml Balance -140 ml Laboratory Data 24H LABS Laboratory Tests 2 06/04/16 11:50: Body Fluid Albumin 1.6, Body Fluid Amylase 14, Body Fluid Cholesterol < 50, Body Fluid Glucose 135, Body Fluid Lactate Dehydrogenase 847, Body Fluid Lymphocytes 44, Body Fluid Monocytes/Macrophages 21, Body Fluid Neutrophils 35, Body Fluid Source PLEURAL, Body Fluid Total Protein 2.6, Body Fluid Triglycerides 13, Body Fluid pH 7.611, Pleural Fluid Appearance HAZY, Pleural Fluid Color JAREN, Pleural Fluid RBC (Auto) 13, Pleural Fluid Source PLEURAL, Pleural Fluid Total Nucleated Cells 633H 06/05/16 05:21: Anion Gap 11, White Blood Count 13.7H, Red Blood Count 3.97L, Hemoglobin 11.8L, Hematocrit 34.7L, Mean Corpuscular Volume 87.4, Mean Corpuscular Hemoglobin 29.7 , Mean Corpuscular Hemoglobin Concent 33.9, Red Cell Distribution Width 13.2, Platelet Count 418, Neutrophils (%) (Auto) 87.7H, Lymphocytes (%) (Auto) 5.1L, Monocytes (%) (Auto) 5.3H, Eosinophils (%) (Auto) 0.6, Basophils (%) (Auto) 0.1 , Neutrophils # (Auto) 12.0H, Lymphocytes # (Auto) 0.7L, Monocytes # (Auto) 0.7 , Eosinophils # (Auto) 0.1, Basophils # (Auto) 0.0, Blood Urea Nitrogen 30H, Creatinine 0.99, Sodium Level 131L, Potassium Level 3.7, Chloride Level 94L, Carbon Dioxide Level 26, Calcium Level 9.1, Glomerular Filtration Rate 57.0, Large Unclassified Cells # 0.2, Large Unclassified Cells % 1.1 CBC/BMP Laboratory Tests 06/05/16 05:21 Calcium Level 9.1, Red Blood Count 3.97 L, Mean Corpuscular Volume 87.4, Mean Corpuscular Hemoglobin 29.7, Mean Corpuscular Hemoglobin Concent 33.9, Red Cell Distribution Width 13.2, Neutrophils (%) (Auto) 87.7 H, Lymphocytes (%) (Auto) 5.1 L, Monocytes (%) (Auto) 5.3 H, Eosinophils (%) (Auto) 0.6, Basophils (%) ( Auto) 0.1, Neutrophils # (Auto) 12.0 H, Lymphocytes # (Auto) 0.7 L, Monocytes # (Auto) 0.7, Eosinophils # (Auto) 0.1, Basophils # (Auto) 0.0 Microbiology Microbiology 05/26/16 Blood Culture - Final, Complete NO GROWTH AFTER 5 DAYS 05/26/16 Blood Culture - Final, Complete NO GROWTH AFTER 5 DAYS 06/04/16 Acid Fast Stain, Received Pending 06/04/16 Mycobacterial Culture, Received Pending 06/04/16 Fungal Smear, Received Pending 06/04/16 Fungal Culture, Received Pending 06/04/16 Gram Stain - Final, Resulted 06/04/16 Anaerobic Culture, Resulted Pending 06/04/16 Body Fluid Culture, Received Pending 05/26/16 Respiratory Virus Panel (PCR) (ISELA) - Final, Complete 06/03/16 Urine Culture - Final, Complete THEA SWAN DO Jun 05, 2016 07:57
[2016-06-05] MEDS: SPIRONOLACTONE 25 MG TAB PO SCH (08:53)
[2016-06-05] MEDS: NYSTATIN 500,000 U/5 ML SUSP UDC SS SCH ×4 (08:53→20:16)
[2016-06-05] MEDS: buPROPion (WELLBUTRIN SR) 100 MG SR TAB PO SCH (08:53)
[2016-06-05] MEDS: MAGNESIUM OXIDE 400 MG TAB (MAG-OX) PO SCH ×2 (08:53→20:16)
--- NOTE | 2016-06-05 09:23 | REP ---
TWO-VIEW CHEST: Two views of the chest are performed and compared to a prior study 06/04/2016 and 06/03/2016. There is placement of a right inferior pigtail drainage catheter and pleural fluid has significantly decreased on the right. Underlying parenchymal opacity is again seen in the right lower lobe. There is evidence of significant right hilar adenopathy and subcarinal adenopathy. IMPRESSION: Right inferior hemithorax pigtail drainage catheter. Right lower lobe parenchymal opacity again seen as well as mediastinal and right hilar adenopathy. No pneumothorax. Signed by Brandon Hooper MD 06/05/2016 03:52 P
[2016-06-05 12:00] VITALS: BP 129/59
--- NOTE | 2016-06-05 13:02 | CR ---
DATE OF CONSULTATION: 06/04/2016 REFERRING PHYSICIAN: Dr. 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 HISTORY OF PRESENT ILLNESS: Kasia Sandoval is an 81-year-old female who was initially seen in the emergency room for postobstructive pneumonia on 05/24/2016. She was subsequently evaluated on 05/26/2016 with a chest x-ray which revealed hilar adenopathy and a right lower lobe mass with associated right lower lobe infiltrates consistent with chest x-ray on 05/24/2016. On 05/26/2016, she was admitted with atrial flutter, rapid ventricular rate. She underwent CT guided biopsy of the right lung mass on 05/29/2016 and pathology is consistent with poorly differentiated non-small cell carcinoma consistent with adenocarcinoma. TTF-1, napsin, CK5 and p63 were all negative. Repeat CT scan on 06/03/2016 revealed evidence of extensive mediastinal adenopathy, right hilar adenopathy and posterior pericardial fluid, multiple cysts in the liver, diffuse thickening of left adrenal gland, as well as a new small left pleural effusion and moderate right pleural effusion. Hematology/oncology was consulted given a new diagnosis of metastatic carcinoma of the lung. Clinically, patient complains of fatigue and dyspnea on exertion. Rapid ventricular rate with atrial flutter is now controlled. She denies any hemoptysis but she does have a chronic cough. Dr. Delgado is at her bedside and a plan is for thoracentesis of the right moderate effusion later on tonight or tomorrow. PAST MEDICAL HISTORY: Gastroesophageal reflux disease (GERD). Hypothyroidism. Anxiety. PAST SURGICAL HISTORY: Tubal ligation. MEDICATIONS AT HOME INCLUDE: - Wellbutrin - calcium - Synthroid - multivitamins - ranitidine - vitamin D - Ambien as needed ALLERGIES: QUINOLONES. SOCIAL HISTORY: She has a greater than 60 pack year history of tobacco use. Occasional alcohol. She lives with her who is at her bedside. They have grown children and grandchildren. FAMILY HISTORY: No history of malignancy in the family. PHYSICAL EXAMINATION: VITAL SIGNS: Temperature 96.2, pulse 105, blood pressure 102/50, oxygen saturation is 94% on room air. General: Elderly female in no acute distress. She is lying in bed, comfortable. ECOG of 2. HEENT: No pallor. Anicteric sclerae. Moist mucous membranes. Oropharynx is clear. LYMPHATICS: She has multiple palpable supraclavicular lymph nodes measuring up to 4-5 cm bilaterally. No other palpable lymphadenopathy. No lymphadenopathy in the axillary, cervical, or inguinal regions. HEART: Tachycardic, consistent with atrial flutter. No appreciable murmurs. LUNGS: She has bibasilar crackles, no wheezing, rhonchi, or rales. ABDOMEN: Soft, nontender, nondistended. No hepatosplenomegaly or masses. EXTREMITIES: No edema. LABS AND STUDIES: CBC with white count of 15,000, hemoglobin 12.1, platelet count of 419,000. Lymphocyte count of 600, ANC of 13,500. Sodium 132, potassium 3.7, BUN 23, creatinine 0.77. Liver function tests with AST of 55, ALT of 82. LDH of 775. 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 RECOMMENDATION: 1. Patient should be staged fully with an MRI of the brain. 2. Upon discharge, patient will require PET scan as well. 3. If there is central nervous system metastasis, palliative radiation therapy would be recommended prior to chemotherapy. Patient is going to undergo therapeutic right thoracentesis done by Dr. Delgado with a chest tube placement on the right or pigtail catheter. Patient could likely benefit from chemotherapy even with an ECOG of 2. I discussed with the patient in detail at her bedside regarding her wishes and at this point, she is undecided on whether be treated with chemotherapy. However, I would like to see the patient as an outpatient upon discharge.
[2016-06-05 16:00] VITALS: BP 133/72
[2016-06-05] MEDS: RIVAROXABAN 20 MG TAB (XARELTO) PO SCH (18:10)
--- NOTE | 2016-06-05 19:41 | IPN ---
DATE: 06/05/2016 Mrs. Sandoval was again breathing better, having had her fluid removed. She has put out a very large amount of output through the chest tube catheter. Up until 12:00 midnight she put out 750 mL. The last 12 hours she has put out 160 mL. Her vital signs show a T-max of 97.0 with a heart rate that ranges between 81 and 112 in atrial fibrillation with a respiratory rate of 20 without the use of accessory muscles who is 97 to 95% saturated on room air. His blood pressure is ranging between 114/56 to 129/59. Her intake and output over the past 24 hours has been recorded as 620 in and 1275 out for a negativity of 655 mL which include 750 mL from the chest tube. Her weight today is 63.5 kg compared to 63.3 kg yesterday. There is no air leak. On physical examination her lungs show nearly equal breath sounds on either side. She has some find crackles in the right lower hemithorax. Cardiac exam is without murmurs, clicks, gallops or rubs. I cannot feel her point of maximal impulse (PMI). S1 and S2 are normal. Abdomen is soft and nontender. Bowel sounds are positive. There is no hepatomegaly. No costovertebral angle (CVA) tenderness. Extremities show no pretibial edema. No calf tenderness. No differential swelling of the upper extremities. Skin is warm, dry and perfused without cyanosis or mottling including that of the nail beds and the knees. Neck is supple. There is no jugular venous distention. No subcutaneous emphysema. Trachea is midline. Mouth shows her mucous membranes to be pink and moist. Lips and commissures without lesions. No thrush. Eyes show her pupils to be equal, reactive. Extraocular muscles intact. Sclera anicteric. Neuro shows II through XII intact. Gross motor and gross sensation intact. Gait is not tested. Psychiatric shows her to be awake, alert and oriented times three with appropriate mood, affect and conversational. Her white count today is 13.7, with hemoglobin and hematocrit of 11.8 and 34.7. Platelet count is 418. Differential shows 87% neutrophils, 5% lymphocytes, 5% monocytes. There are no immature forms. No toxic granulations. Her electrolytes show sodium 131 with a BUN and creatinine of 30 and 0.99, glucose of 139 and a calcium of 9.1. Her albumin is 2.5 on 06/03. This therefore makes her corrected calcium 10.3 which is slightly hypercalcemic. Her chest x-ray today shows complete clearing of the costophrenic angle. Chest tube catheter is in good place. It looks like there is a large mass in the right lower lobe. This large mass was known prior. Her pleural fluid has come back metastatic carcinoma. IMPRESSION: 1. Malignant pleural effusion. 2. Metastatic non small cell carcinoma, probably adenocarcinoma to the mediastinum inferiorly and superiorly with spread to the supraclavicular nodes, stage IV disease. 3. Hypothyroidism. 4. Thrush. Improved. 5. Postobstructive right lower lobe pneumonia. PLAN AND DISCUSSION: She has put out too much from the catheter for me to remove it. I did think that it was going to fitter and turner to be a peripneumonic effusion with a high LDH, but she subsequent determinations show her to have a normal pH with a glucose of 135, which mitigated against an infective process. Cytology and cell block is now showing it to be malignant. She has put out a lot less today than she did yesterday and hopefully that will continue to decrease. However, if it does not, I will nonetheless pull the catheter and let it reaccumulate and recommend that we approach this with a PleurX catheter. Talc pleurodesis given her functional status and age, could very well tip her over because of the severe inflammatory response needed to glue the lung. I have had a long talk with her and her family regarding that recommendation and they understand. Will see what happens over the next couple of days with the catheter.
[2016-06-05 20:00] VITALS: BP 144/68
[2016-06-05] MEDS: MIRTAZAPINE 15 MG TAB PO SCH (20:16)
[2016-06-05 23:59] VITALS: BP 188/72
[2016-06-06] VITALS (9 sets, daily range): BP systolic 78–154; BP diastolic 59–95
[2016-06-06] MEDS: METOPROLOL TART 50 MG TAB PO SCH (06:06)
[2016-06-06] MEDS: DOXYCYCLINE HYCLATE 100 MG in D5W MINI-BAG PLUS 100 ML IV SCH ×2 (06:06→16:30)
[2016-06-06] MEDS: LEVOTHYROXINE 0.075 MG TAB (75 MCG) PO SCH (06:06)
[2016-06-06] MEDS: SLF 3 ML SYR IV SCH ×3 (06:07→20:57)
[2016-06-06 06:09] LABS: ANION GAP 10 MEQ/L (8-16); BLOOD UREA NITROGEN 26 MG/DL (7-18); CALCIUM LEVEL 9.3 MG/DL (8.8-10.2); CARBON DIOXIDE LEVEL 27 MEQ/L (21-32); CHLORIDE LEVEL 93 MEQ/L (98-107); CREATININE FOR GFR 0.92 MG/DL (0.55-1.02); GLOMERULAR FILTRATION RATE > 60.0 (>32); GLUCOSE, FASTING 127 MG/DL (83-110); POTASSIUM SERUM 3.7 MEQ/L (3.5-5.1); SODIUM LEVEL 130 MEQ/L (136-145)
[2016-06-06 06:10] LABS: BASO % 0.1 % (0.0-1.0); EOS % 0.2 % (0.0-3.0); LARGE UNSTAINED CELL # 0.2 K/mm3 (0.0-0.4); LARGE UNSTAINED CELL % 1.1 % (0.0-4.0); LYMPH # 0.6 K/mm3 (1.5-4.5); LYMPH % 4.1 % (24.0-44.0); MEAN CORPUSCULAR HEMOGLOBIN 30.2 pg (27.0-33.0); MEAN CORPUSCULAR HGB CONC 34.1 g/dl (32.0-36.5); MEAN CORPUSCULAR VOLUME 88.4 fl (80.0-96.0); MONO # 0.7 K/mm3 (0.0-0.8); MONO % 4.8 % (0.0-5.0); NEUTROPHILS # 12.4 K/mm3 (1.8-7.7); NEUTROPHILS % 89.7 % (36.0-66.0); PLATELET COUNT, AUTOMATED 456 k/mm3 (150-450); RED CELL DISTRIBUTION WIDTH 13.3 % (11.5-14.5); WHITE BLOOD COUNT 13.8 K/mm3 (4.0-10.0)
[2016-06-06] MEDS: MAGNESIUM OXIDE 400 MG TAB (MAG-OX) PO SCH ×2 (09:26→20:56)
[2016-06-06] MEDS: buPROPion (WELLBUTRIN SR) 100 MG SR TAB PO SCH (09:26)
[2016-06-06] MEDS: PIPERACILLIN/TAZOBACTAM SOD 3.375 GM in D5W MINI-BAG PLUS 50 ML IV SCH ×3 (09:26→23:42)
[2016-06-06] MEDS: NYSTATIN 500,000 U/5 ML SUSP UDC SS SCH ×4 (09:26→20:56)
[2016-06-06] MEDS: SPIRONOLACTONE 25 MG TAB PO SCH (09:26)
--- NOTE | 2016-06-06 10:59 | IPNPDOC ---
Subjective Date Seen The patient was seen on 06/06/16. Subjective Chief Complaint/HPI The patient is a 81-year-old female admitted with a reason for visit of Atrial Flutter With Rapid Ventricular Resp. Events since last encounter Feels well. No SOB, CP, N/v. Ambulating well with RW. Feels strong enough to go home and perform ADLs Constitutional: Denies: Chills, Fever Pulmonary: Denies: Cough, Dyspnea Cardiovascular: Denies: Chest Pain, Palpitations Gastrointestinal: Denies: Abdominal Pain, Constipation, Diarrhea, Nausea, Vomiting Objective Physical Examination General Exam: Positive: Alert, No Acute Distress Eye Exam: Positive: Conjunctiva & lids normal, EOMI, PERRLA, Negative: Sclera icteric ENT Exam: Positive: Atraumatic, Mucous membr. moist/pink, Pharynx Normal Neck Exam: Positive: Supple, Negative: JVD Chest Exam: Positive: Diminished (Decreased BS right base. Left CTA. No W/R/R ), Other (+ SC adenopathy R>L. right sided pigtail catheter in place, draining bloody fluid) Heart Exam: Positive: Irregular Rhythm, Tachycardic, Negative: Murmurs Telemetry: Positive: Atrial fibrillation Abdomen Exam: Positive: Normal bowel sounds, Soft, Negative: Hepatospenomegaly, Tenderness Extremity Exam: Positive: Normal pulses, Negative: Clubbing, Cyanosis, Edema Skin Exam: Positive: Nl turgor and temperature, Negative: Breakdown, Rash Assessment /Plan Problems (1) Atrial flutter with rapid ventricular response Status: Acute Discussed With: Other Discussed With: (Dr. Roa) Problem Specific Plan: Consult Specialist Problem Text: Anticoagulated- Xarelto. 06/04- Cardizem was dc 2/2 HR 130-140; toprol increased to 50 q6. HRs improved to 110s. BPs low normal but acceptable (110s) Cardiac enzymes cycled, neg on admission -TSH WNL -Echo s evidence of thrombus: 1. Probably normal global left ventricular systolic function. There was mild concentric left ventricular hypertrophy. 2. Aortic valve sclerosis with trace aortic regurgitation, but no aortic stenosis. 3. Mildly enlarged left atrium with mitral annulus calcification and mild mitral regurgitation. 4. Moderate tricuspid regurgitation with mild pulmonary hypertension. 5. There were findings consistent with elevated central venous pressure. 3/ rate still suboptimal on Metoprolol 50 q 6 h. BP high Add Digoxin? - D/W attending Spoke with Dr Beard - switch Metoprolol to 100 q 12 (2) Non-small cell cancer of right lung Status: Acute Discussed With: Satin Finisher Problem Specific Plan: Consult Specialist Problem Text: Likely stage IV based on likely spread to mediastinal nodes ( seen on CT) and supraclavicular adenopathy bilaterally. She'll need a PET as an outpt. -Dr. Marin consulted, appreciate his input. -Final pathology pending. -A considerable amount of time has been dedicated to providing counselling, anticipatory guidance, and education to the patient and her . 3/ - Per Dr. Marin - get MRI brain prior ot d/c for staging. will need PET as outpatient (3) Pleural effusion Status: Acute Problem Specific Plan: Consult Specialist (Dr. Delgado) Problem Text: S/P pigtail catheter drainage. Exudative effusion based on Light' s criteria of pleural fluid analysis. Cx pending. Underlying postobstructive pneumonia is being tx c zosyn. -cytology is pending. Catheter remains in place until definitive dx has been made. Appreciate assistance from Dr. Delgado 3/ - felt to be malignant. Dr. Delgado removing chest tube today Fluid will likely reaccumulate and Pleurex placed as outpatient (4) Postobstructive pneumonia Status: Acute Problem Text: D11 ABX, Zosyn. Afebrile. WBC improving. Remains asymptomatic / - Continue IV abx until D/C, then d/c home on Augmentin (5) Physical deconditioning Status: Acute Problem Text: Oral intake is poor. Mirtazapine started to help c appetite. Added ensure shakes BID. Receiving PT. 3/ - still not safe per PT yet. will needs RW and tub chair at home - ( scripts in chart) (6) Hypokalemia Status: Acute Problem Text: May be related to Zosyn. 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 Remains stable/ asymptomatic low 130s (8) Hypothyroid Status: Chronic Problem Text: Thyroid studies WNL upon admission. Continue synthroid (9) Anxiety Status: Chronic Problem Text: Controlled at home on Wellbutrin. Lorazepam was added as needed, but she has not required any PRN doses. Plan/VTE VTE Prophylaxis Ordered?: Yes (Xarelto) Plan Diet: Continue Current Activity: Encourage Ambulation Disposition D/c Chest tube today, change to oral abx, try to improve HR control. If all improved and safe per PT, will d/c in am (was not safe per PT yesterday) VS, I&O, 24H, Fishbone Vital Signs/I&O Vital Signs Date Time Temp Pulse Resp B/P Pulse Ox O2 Delivery O2 Flow Rate FiO2 06/06/16 07:20 95.4 121 18 154/69 96 Room Air 06/04/16 21:47 2.0 I&O- Last 24 Hours up to 6 AM 06/06/16 06:00 Intake Total 1010 ml Output Total 1070 ml Balance -60 ml Laboratory Data 24H LABS Laboratory Tests 2 06/06/16 05:26: Anion Gap 10, White Blood Count 13.8H, Red Blood Count 3.99L, Hemoglobin 12.0, Hematocrit 35.3L, Mean Corpuscular Volume 88.4, Mean Corpuscular Hemoglobin 30.2 , Mean Corpuscular Hemoglobin Concent 34.1, Red Cell Distribution Width 13.3, Platelet Count 456H, Neutrophils (%) (Auto) 89.7H, Lymphocytes (%) (Auto) 4.1L, Monocytes (%) (Auto) 4.8, Eosinophils (%) (Auto) 0.2, Basophils (%) (Auto) 0.1, Neutrophils # (Auto) 12.4H, Lymphocytes # (Auto) 0.6L, Monocytes # (Auto) 0.7, Eosinophils # (Auto) 0.0, Basophils # (Auto) 0.0, Blood Urea Nitrogen 26H, Creatinine 0.92, Sodium Level 130L, Potassium Level 3.7, Chloride Level 93L, Carbon Dioxide Level 27, Calcium Level 9.3, Glomerular Filtration Rate > 60.0, Large Unclassified Cells # 0.2, Large Unclassified Cells % 1.1 CBC/BMP Laboratory Tests 06/06/16 05:26 Calcium Level 9.3, Red Blood Count 3.99 L, Mean Corpuscular Volume 88.4, Mean Corpuscular Hemoglobin 30.2, Mean Corpuscular Hemoglobin Concent 34.1, Red Cell Distribution Width 13.3, Neutrophils (%) (Auto) 89.7 H, Lymphocytes (%) (Auto) 4.1 L, Monocytes (%) (Auto) 4.8, Eosinophils (%) (Auto) 0.2, Basophils (%) (Auto ) 0.1, Neutrophils # (Auto) 12.4 H, Lymphocytes # (Auto) 0.6 L, Monocytes # ( Auto) 0.7, Eosinophils # (Auto) 0.0, Basophils # (Auto) 0.0 Microbiology Microbiology 06/04/16 Acid Fast Stain, Received Pending 06/04/16 Mycobacterial Culture, Received Pending 06/04/16 Fungal Smear, Received Pending 06/04/16 Fungal Culture, Received Pending 06/04/16 Gram Stain - Final, Complete 06/04/16 Anaerobic Culture - Final, Complete 06/04/16 Body Fluid Culture - Final, Complete 06/03/16 Urine Culture - Final, Complete ERNST BEARD PA-C Jun 06, 2016 10:59
--- NOTE | 2016-06-06 11:01 | REP ---
TWO-VIEW CHEST: Two views of the chest are performed. COMPARISON: 06/05/2016. Right pigtail drainage catheter is again noted. There is blunting of the posterior costophrenic sulcus unchanged. Right basilar parenchymal opacities are unchanged. Cardiomediastinal silhouette is unchanged. IMPRESSION: Stable exam. Signed by Brandon Hooper MD 06/06/2016 08:30 P
[2016-06-06] MEDS ORDERED: METOPROLOL TART 50 MG TAB PO ONE (11:15)
--- NOTE | 2016-06-06 15:15 | REP ---
MRI BRAIN WITHOUT AND WITH CONTRAST: HISTORY: Lung carcinoma. CONTRAST: ProHance 12.4 mL. COMPARISON: 11/09/2008 Areas of increased signal intensity on T2-weighted images are present in the periventricular and subcortical white matter and shaunna. This represents small vessel ischemic disease. There is no intraparenchymal hemorrhage, infarct, mass or midline shift. An arachnoid cyst is present in the right middle cranial fossa. The arachnoid cyst measures 4.5 cm in transverse x 3.6 cm in AP x 2.7 cm in cephalocaudal dimensions and is unchanged in size compared to the previous study. There is no abnormal enhancement. The ventricular system and cortical sulci as well as subarachnoid space in the posterior fossa are dilated consistent with mild volume loss. There is no extracerebral collection. Mucosal thickening is present in the left sphenoid sinus. IMPRESSION: 1. Small vessel ischemic disease. 2. Mild volume loss. 3. Right middle cranial fossa arachnoid cyst unchanged in size compared to the previous study. Signed by Michele Frausto MD 06/06/2016 03:20 P
[2016-06-06] MEDS: RIVAROXABAN 20 MG TAB (XARELTO) PO SCH (17:40)
[2016-06-06] MEDS ORDERED: DIGOXIN 0.25 MG TAB PO ONE (18:00)
[2016-06-06] MEDS: MIRTAZAPINE 15 MG TAB PO SCH (20:56)
[2016-06-06] MEDS: METOPROLOL TARTRATE 100 MG TAB PO SCH (20:56)
--- NOTE | 2016-06-06 21:33 | IPN ---
DATE: 06/06/2016 Mrs. Sandoval is feeling rather weak but she has been getting up at least to a chair. She is not eating much but she is in very good spirits. Her vital signs show a T-max of 97.5 with a heart rate that ranges between 107 and 137 in a sinus rhythm with a respiratory rate of 20 to 18 without the use of accessory muscles who is 96 to 93% saturated on room air and whose blood pressure is ranging between 188/72 to 148/84. Her intake and output over the past 24 hours has been recorded as 1390 in and 1105 out for a positivity of 285 mL. She has taken in a 1000 mL in by mouth intake and she has put out 180 mL from the chest catheter. There is no air leak. Her weight today is 62.9 kg compared to 63.5 kg yesterday. PHYSICAL EXAMINATION: On physical examination, her left lung shows normal vesicular sounds. Her right lung shows rales and rhonchi in the lower portion of the hemithorax. Percussion notes are full to the diaphragm. Cardiac exam is without murmurs, clicks, gallops or rubs. I cannot feel her point of maximal impulse (PMI). S1 and S2 are normal. Abdomen is soft and nontender. Bowel sounds are positive. There is no hepatomegaly. No costovertebral angle (CVA) tenderness. Extremities show no pretibial edema. No calf tenderness. No differential swelling of the upper extremities. Skin is warm, dry and perfused without cyanosis or mottling including that of the nail beds and the knees. Neck is supple. There is no jugular venous distention. No subcutaneous emphysema. Trachea is midline. She still of course has the bilateral supraclavicular adenopathy. Mouth shows her mucous membranes to be pink and moist. Lips and commissures are without lesions. There is no thrush. Eyes show her pupils to be equal, reactive. Extraocular muscles intact. Sclera anicteric. Neuro shows II through XII intact. Gross motor and gross sensation intact. Gait is not tested. Psychiatric shows her to be awake, alert and oriented times three with appropriate mood, affect and conversational. Her white count today is 13.8, unchanged from yesterday with a hemoglobin and hematocrit of 12.0 and 35.3, essentially unchanged from yesterday. Platelet count is 456 and her differential shows 89% neutrophils, 4% lymphocytes and 4% monocytes. There are no immature forms or toxic granulations. Her electrolytes show a sodium of 130 with a potassium of 3.7 and a BUN and creatinine of 26 and 0.92. Glucose is 127 with a calcium of 9.3 with the corresponding albumin of 2.5 gives a calculated calcium of 10.3, which makes her slightly hypercalcemic. Her chest x-ray today shows the lung fully expanded to the chest wall. Costophrenic angles are sharp. There is no subcutaneous emphysema. She still has the infiltrative finding in the right lower lobe but that is improved over yesterdays. She has the known right lower lobe mass. It looks as if the postobstructive pneumonia is improving. She remains on Zosyn as an antibiotic. IMPRESSION: 1. 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 2. Malignant pleural effusion. 3. Hypothyroidism. 4. Thrush, resolved. 5. Postobstructive right lower lobe pneumonia. PLAN AND DISCUSSION: She has only put out 180 mL and I am going to discontinue the chest tube catheter. I do suspect that this fluid is going to come back. She is going to be seeing Dr. Marin of oncology for consideration of chemotherapy. Nonetheless, I will see her back in the office in 1-1/2 weeks with a chest x-ray. If and when the pleural fluid accumulates, we will then place a PleurX catheter when there is a target to place the PleurX catheter.
[2016-06-07] MEDS ORDERED: METOPROLOL TART 50 MG TAB PO ONE (03:30)
[2016-06-07 04:49] VITALS: BP 119/76
[2016-06-07] MEDS: DOXYCYCLINE HYCLATE 100 MG in D5W MINI-BAG PLUS 100 ML IV SCH ×2 (05:06→17:46)
[2016-06-07 06:04] LABS: BASO % 0.1 % (0.0-1.0); EOS % 0.1 % (0.0-3.0); LARGE UNSTAINED CELL # 0.2 K/mm3 (0.0-0.4); LARGE UNSTAINED CELL % 0.9 % (0.0-4.0); LYMPH # 0.7 K/mm3 (1.5-4.5); LYMPH % 4.4 % (24.0-44.0); MEAN CORPUSCULAR HEMOGLOBIN 29.5 pg (27.0-33.0); MEAN CORPUSCULAR HGB CONC 33.6 g/dl (32.0-36.5); MEAN CORPUSCULAR VOLUME 87.8 fl (80.0-96.0); MONO # 0.7 K/mm3 (0.0-0.8); MONO % 4.3 % (0.0-5.0); NEUTROPHILS # 14.6 K/mm3 (1.8-7.7); NEUTROPHILS % 90.2 % (36.0-66.0); PLATELET COUNT, AUTOMATED 453 k/mm3 (150-450); RED CELL DISTRIBUTION WIDTH 13.5 % (11.5-14.5); WHITE BLOOD COUNT 16.2 K/mm3 (4.0-10.0)
[2016-06-07 06:12] LABS: ANION GAP 14 MEQ/L (8-16); BLOOD UREA NITROGEN 32 MG/DL (7-18); CALCIUM LEVEL 8.7 MG/DL (8.8-10.2); CARBON DIOXIDE LEVEL 23 MEQ/L (21-32); CHLORIDE LEVEL 93 MEQ/L (98-107); CREATININE FOR GFR 0.94 MG/DL (0.55-1.02); GLOMERULAR FILTRATION RATE > 60.0 (>32); GLUCOSE, FASTING 120 MG/DL (83-110); POTASSIUM SERUM 3.6 MEQ/L (3.5-5.1); SODIUM LEVEL 130 MEQ/L (136-145)
[2016-06-07] MEDS: LEVOTHYROXINE 0.075 MG TAB (75 MCG) PO SCH (06:25)
[2016-06-07] MEDS: SLF 3 ML SYR IV SCH ×3 (06:25→21:06)
[2016-06-07 08:00] VITALS: BP 131/70
--- NOTE | 2016-06-07 08:31 | IPNPDOC ---
Subjective Date Seen The patient was seen on 06/07/16. Subjective Chief Complaint/HPI The patient is a 81-year-old female admitted with a reason for visit of Atrial Flutter With Rapid Ventricular Resp. Events since last encounter Seen this morning in PCU. She still feels weak. HRs improved c increased toprol dose and dig. PT has not cleared her for safe dc yet. General: Reports: Fatigue, Normal Appetite, Denies: Chills, Malaise, Night Sweats Constitutional: Reports: Weakness, Denies: Chills, Fever, Night Sweats Skin: Denies: Breakdown, Lesions, Rash Pulmonary: Denies: Cough, Dyspnea Cardiovascular: Denies: Chest Pain, Lt Headedness, Orthopnea, Palpitations, Paroxysmal Noc. Dyspnea Musculoskeletal: Denies: Back Pain, Joint Pain, Muscle Pain, Neck Pain, Spasms Psych: Reports: Mood Normal, Denies: Depression, Memory Issues Objective Physical Examination General Exam: Positive: Alert, No Acute Distress Eye Exam: Positive: Conjunctiva & lids normal, EOMI, PERRLA, Negative: Sclera icteric ENT Exam: Positive: Atraumatic, Mucous membr. moist/pink, Pharynx Normal Neck Exam: Positive: Supple, Negative: JVD Chest Exam: Positive: Diminished (Decreased BS right base. Left CTA. No W/R/R ), Other (+ SC adenopathy R>L. right sided pigtail catheter in place, draining bloody fluid) Heart Exam: Positive: Irregular Rhythm, Tachycardic, Negative: Murmurs Telemetry: Positive: Atrial fibrillation Abdomen Exam: Positive: Normal bowel sounds, Soft, Negative: Hepatospenomegaly, Tenderness Extremity Exam: Positive: Normal pulses, Negative: Clubbing, Cyanosis, Edema Skin Exam: Positive: Nl turgor and temperature, Negative: Breakdown, Rash Assessment /Plan Problems (1) Atrial flutter with rapid ventricular response Status: Acute Discussed With: Other Discussed With: (Dr. Roa) Problem Specific Plan: Consult Specialist Problem Text: Anticoagulated- Xarelto. 06/06/16 dig 0.75 po load c improvement in rate control. Continue toprol 100q12. Appreciate cardiology's input. 06/04- Cardizem was dc 2/2 HR 130-140; toprol increased to 50 q6. HRs improved to 110s. BPs low normal but acceptable (110s) Cardiac enzymes cycled, neg on admission -TSH WNL -Echo s evidence of thrombus: 1. Probably normal global left ventricular systolic function. There was mild concentric left ventricular hypertrophy. 2. Aortic valve sclerosis with trace aortic regurgitation, but no aortic stenosis. 3. Mildly enlarged left atrium with mitral annulus calcification and mild mitral regurgitation. 4. Moderate tricuspid regurgitation with mild pulmonary hypertension. 5. There were findings consistent with elevated central venous pressure. (2) Non-small cell cancer of right lung Status: Acute Discussed With: Scuba Diver Problem Specific Plan: Consult Specialist Problem Text: Likely stage IV based on likely spread to mediastinal nodes ( seen on CT) and supraclavicular adenopathy bilaterally. She'll need a PET as an outpt. -Dr. Marin consulted, appreciate his input. -Final pathology pending. -A considerable amount of time has been dedicated to providing counselling, anticipatory guidance, and education to the patient and her . - No apparent brain mets on MRI - Will need PET as outpt (3) Pleural effusion Status: Acute Problem Specific Plan: Consult Specialist (Dr. Delgado) Problem Text: Likely malignant. Family aware that this portends worse prognosis. Dr. Delgado removed the pigtail catheter on 06/06; she will need f/u in 10d as outpt for repeat cxr and possible pleurx placement. (4) Postobstructive pneumonia Status: Acute Problem Text: D13 ABX, Zosyn. Afebrile. WBC improving. Remains asymptomatic (5) Physical deconditioning Status: Acute Problem Text: Oral intake is poor. Mirtazapine started to help c appetite. Added ensure shakes BID. Receiving PT. - still not safe per PT yet. will needs RW and tub chair at home - (scripts in chart) (6) Hypokalemia Status: Acute Problem Text: May be related to Zosyn. 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 Remains stable/asymptomatic low 130s (8) Hypothyroid Status: Chronic Problem Text: Thyroid studies WNL upon admission. Continue synthroid (9) Anxiety Status: Chronic Problem Text: Controlled at home on Wellbutrin. Lorazepam was added as needed, but she has not required any PRN doses. Plan/VTE VTE Prophylaxis Ordered?: Yes (Xarelto) Plan Diet: Continue Current Activity: Encourage Ambulation VS, I&O, 24H, Fishbone Vital Signs/I&O Vital Signs Date Time Temp Pulse Resp B/P Pulse Ox O2 Delivery O2 Flow Rate FiO2 06/07/16 08:00 96.3 74 18 131/70 94 Room Air 06/04/16 21:47 2.0 I&O- Last 24 Hours up to 6 AM 06/07/16 06:00 Intake Total 690 ml Output Total 275 ml Balance 415 ml Laboratory Data 24H LABS Laboratory Tests 2 06/07/16 05:15: Anion Gap 14, White Blood Count 16.2H, Red Blood Count 4.00, Hemoglobin 11.8L, Hematocrit 35.1L, Mean Corpuscular Volume 87.8, Mean Corpuscular Hemoglobin 29.5 , Mean Corpuscular Hemoglobin Concent 33.6, Red Cell Distribution Width 13.5, Platelet Count 453H, Neutrophils (%) (Auto) 90.2H, Lymphocytes (%) (Auto) 4.4L, Monocytes (%) (Auto) 4.3, Eosinophils (%) (Auto) 0.1, Basophils (%) (Auto) 0.1, Neutrophils # (Auto) 14.6H, Lymphocytes # (Auto) 0.7L, Monocytes # (Auto) 0.7, Eosinophils # (Auto) 0.0, Basophils # (Auto) 0.0, Blood Urea Nitrogen 32H, Creatinine 0.94, Sodium Level 130L, Potassium Level 3.6, Chloride Level 93L, Carbon Dioxide Level 23, Calcium Level 8.7L, Glomerular Filtration Rate > 60.0, Large Unclassified Cells # 0.2, Large Unclassified Cells % 0.9 CBC/BMP Laboratory Tests 06/07/16 05:15 Calcium Level 8.7 L, Red Blood Count 4.00, Mean Corpuscular Volume 87.8, Mean Corpuscular Hemoglobin 29.5, Mean Corpuscular Hemoglobin Concent 33.6, Red Cell Distribution Width 13.5, Neutrophils (%) (Auto) 90.2 H, Lymphocytes (%) (Auto) 4.4 L, Monocytes (%) (Auto) 4.3, Eosinophils (%) (Auto) 0.1, Basophils (%) (Auto ) 0.1, Neutrophils # (Auto) 14.6 H, Lymphocytes # (Auto) 0.7 L, Monocytes # ( Auto) 0.7, Eosinophils # (Auto) 0.0, Basophils # (Auto) 0.0 Microbiology Microbiology 06/04/16 Acid Fast Stain - Final, Resulted 06/04/16 Mycobacterial Culture, Resulted Pending 06/04/16 Fungal Smear - Final, Resulted 06/04/16 Fungal Culture, Resulted Pending 06/04/16 Gram Stain - Final, Complete 06/04/16 Anaerobic Culture - Final, Complete 06/04/16 Body Fluid Culture - Final, Complete 06/03/16 Urine Culture - Final, Complete THEA SWAN DO Jun 07, 2016 08:31 Broderick Esparza M.D. Jun 07, 2016 12:53
[2016-06-07] MEDS: buPROPion (WELLBUTRIN SR) 100 MG SR TAB PO SCH (08:52)
[2016-06-07] MEDS: PIPERACILLIN/TAZOBACTAM SOD 3.375 GM in D5W MINI-BAG PLUS 50 ML IV SCH ×2 (08:52→15:57)
[2016-06-07] MEDS: NYSTATIN 500,000 U/5 ML SUSP UDC SS SCH ×4 (08:52→20:32)
[2016-06-07] MEDS: SPIRONOLACTONE 25 MG TAB PO SCH (08:52)
[2016-06-07] MEDS: METOPROLOL TARTRATE 100 MG TAB PO SCH ×2 (08:53→20:33)
[2016-06-07] MEDS: MAGNESIUM OXIDE 400 MG TAB (MAG-OX) PO SCH ×2 (08:53→20:32)
[2016-06-07] MEDS ORDERED: DIGOXIN 0.25 MG TAB PO ONE ×2 (10:15)
--- NOTE | 2016-06-07 10:24 | REP ---
TWO VIEW CHEST: Two views of the chest are performed and compared with prior study of 06/06/2016. There is removal of right pigtail catheter. There is no pneumothorax. A small right effusion is seen. There is adjacent right basilar parenchymal opacity. The cardiomediastinal silhouette is unchanged. IMPRESSION: Removal of right inferior pigtail catheter. No pneumothorax. Small right effusion. Right basilar parenchymal opacity unchanged as is the remainder of the study. Signed by Brandon Hooper MD 06/07/2016 07:58 P
--- NOTE | 2016-06-07 11:00 | IPN ---
DATE: 06/07/2016 Mrs. Sandoval unfortunately remains in atrial flutter with rapid ventricular response that fluctuates between 110 and 150 beats per minute. I was called about her last night because her heart rate was even higher and I decided to give her a load of digoxin. She received so far a total 0.75 mg and it had only modest effect. Nevertheless, I am hoping that once the load is completed that she will be better. She is otherwise relatively asymptomatic. She tells me that she feels tired, but denies any dyspnea or chest pain and she has no sensation of palpitations. VITAL SIGNS: Blood pressure 131/70, heart rate as above. She is afebrile. Saturation 94% on room air. Her fluid balance was about equal. Weight is 62.7 kg. She is alert and oriented times two even though it looks like mild confusion has set in. Lungs are relatively clear to auscultation. I do not appreciate any wheezing. Heart exam irregular rhythm, tachycardic, somewhat muffled heart sounds. She has no peripheral edema. Abdomen is soft. Neurologically she is weak, but grossly intact. Laboratory knox, potassium 3.6, BUN 32, creatinine 0.9 and glucose 120. CBC hemoglobin 11.8, hematocrit 35 and platelet count 453,000, WBC count 16.2. ASSESSMENT/PLAN: Mrs. Sandoval is a delightful 81-year-old female who presents with widely metastatic stage IV adenocarcinoma of the lung. As a complicating factor, she developed atrial flutter with rapid ventricular response. At this point, we are trying to accomplish rate control before she can go home. Currently she is on metoprolol 100 twice a day plus completing digoxin load. I am certainly hopeful that on this combination she will be in satisfactory rate control for her to go home. It does not have to be perfect but I am uncomfortable with her leaving home with heart rate of 150. I explained this to the family and the patient and they are in agreement. The management of her cancer and other issues remains with primary team. FLAVIO
--- NOTE | 2016-06-07 11:10 | IPN ---
DATE OF SERVICE: 06/07/2016 Mrs. Sandoval still remains in atrial flutter, but her rate has been 150. She is, therefore, not going home today. She is breathing well and is able to walk about a bit. She is now presently sitting up in a chair. Her vital signs show a maximum temperature (Tmax) of 98.0 with a heart rate that ranges between 156 and 74 in atrial flutter with a respiratory rate that is constant at 18, who is 96% to 94% saturated on room air and whose blood pressure is ranging between 131/70 to 120/83. Her intake and output over the past 24 hours has been recorded as 770 in and 550 out for a positivity of 220 mL. She weighs 62.7 kg compared to 62.9 kg yesterday. According to the nursing staff today, she did have a very good breakfast and ate all of her polish toast. On physical examination, she has equal breath sounds on either side. Percussion note is full to the diaphragm. She has some scattered rhonchi, which clear with coughing. Cardiac examination is without murmurs, clicks, gallops, or rubs. I cannot feel her point of maximal impulse (PMI). S1 and S2 are normal. She has a rapid heart rate. Abdomen is soft and nontender. Bowel sounds are positive. There is no hepatomegaly. No costovertebral angle (CVA) tenderness. Extremities show no pretibial edema. No calf tenderness. No differential swelling of the upper extremities. Skin is warm, dry, and perfused without cyanosis or mottling, including that of the nail beds and the knees. Neck is supple. There is no jugular venous distention. No subcutaneous emphysema. Trachea is midline. Mouth shows her mucous membranes to be pink and moist. Lips and commissures without lesions. There is no thrush. Eyes show her pupils to be equal and reactive. Extraocular muscles intact. Sclerae anicteric. Neurologic shows II-XII intact, along with gross motor and gross sensation intact. Gait is not tested. Psychiatric shows her to be awake, alert, and oriented times three with appropriate mood and affect and conversational. Her white count today is up to 16.2 from 13.8 yesterday, hemoglobin and hematocrit 11.8 and 35.1, respectively, with a platelet count of 453. Differential shows 90% neutrophils, 4% lymphocytes, and 4% monocytes. There are no immature forms and no toxic granulations. Her sodium is 130 with a potassium of 3.6 and a BUN and creatinine of 32 and 0.94, glucose of 120, and a calcium of 8.7. Her chest x-ray today still shows the same medial infiltrative process, along with the lateral mass. Costophrenic angle is slightly blunted compared to yesterday's before the chest tube catheter was removed. Nonetheless, it is only minimally so. Her lateral chest x-ray does show beginnings of a posterior effusion. It is very small. IMPRESSION: 1. Stage IV non-small carcinoma, adenocarcinoma to the mediastinum inferiorly and superiorly with spread to the supraclavicular nodes. 2. Malignant pleural effusion. 3. Hypothyroidism. 4. Thrush, resolved. 5. Postobstructive right lower lobe pneumonia, improving. 6. Atrial flutter. PLAN AND DISCUSSION: We will follow her chest x-rays. I thought she was going to be discharged today; however, her atrial flutter is still a problem, and Dr. Morales is addressing that. She is already on metoprolol, and digoxin has been added.
[2016-06-07 12:00] VITALS: BP 127/66
[2016-06-07 16:00] VITALS: BP 140/66
[2016-06-07] MEDS: RIVAROXABAN 20 MG TAB (XARELTO) PO SCH (17:47)
[2016-06-07 19:45] VITALS: BP 130/74
[2016-06-07] MEDS: MIRTAZAPINE 15 MG TAB PO SCH (20:33)
[2016-06-08] VITALS: BP 138/87
[2016-06-08] MEDS: PIPERACILLIN/TAZOBACTAM SOD 3.375 GM in D5W MINI-BAG PLUS 50 ML IV SCH ×2 (00:11→08:10)
[2016-06-08 04:00] VITALS: BP 148/82
[2016-06-08] MEDS: DOXYCYCLINE HYCLATE 100 MG in D5W MINI-BAG PLUS 100 ML IV SCH (04:38)
[2016-06-08 05:24] LABS: BASO % 0.1 % (0.0-1.0); EOS % 0.2 % (0.0-3.0); LARGE UNSTAINED CELL # 0.1 K/mm3 (0.0-0.4); LARGE UNSTAINED CELL % 0.8 % (0.0-4.0); LYMPH # 0.6 K/mm3 (1.5-4.5); LYMPH % 3.6 % (24.0-44.0); MEAN CORPUSCULAR HEMOGLOBIN 30.2 pg (27.0-33.0); MEAN CORPUSCULAR HGB CONC 34.7 g/dl (32.0-36.5); MONO # 0.6 K/mm3 (0.0-0.8); NEUTROPHILS # 14.4 K/mm3 (1.8-7.7); NEUTROPHILS % 91.4 % (36.0-66.0); PLATELET COUNT, AUTOMATED 427 k/mm3 (150-450); RED CELL DISTRIBUTION WIDTH 13.6 % (11.5-14.5); WHITE BLOOD COUNT 15.7 K/mm3 (4.0-10.0)
[2016-06-08] MEDS ORDERED: DIGOXIN 0.25 MG TAB PO ONE (05:30)
[2016-06-08] MEDS: LEVOTHYROXINE 0.075 MG TAB (75 MCG) PO SCH (05:35)
[2016-06-08] MEDS: SLF 3 ML SYR IV SCH (05:37)
[2016-06-08 05:53] LABS: ANION GAP 13 MEQ/L (8-16); BLOOD UREA NITROGEN 29 MG/DL (7-18); CALCIUM LEVEL 9.2 MG/DL (8.8-10.2); CARBON DIOXIDE LEVEL 25 MEQ/L (21-32); CHLORIDE LEVEL 95 MEQ/L (98-107); CREATININE FOR GFR 0.79 MG/DL (0.55-1.02); GLOMERULAR FILTRATION RATE > 60.0 (>32); GLUCOSE, FASTING 116 MG/DL (83-110); POTASSIUM SERUM 3.8 MEQ/L (3.5-5.1); SODIUM LEVEL 133 MEQ/L (136-145)
[2016-06-08 08:00] VITALS: BP 147/92
[2016-06-08] MEDS: SPIRONOLACTONE 25 MG TAB PO SCH (08:10)
[2016-06-08] MEDS: MAGNESIUM OXIDE 400 MG TAB (MAG-OX) PO SCH (08:10)
[2016-06-08] MEDS: buPROPion (WELLBUTRIN SR) 100 MG SR TAB PO SCH (08:10)
[2016-06-08 08:11] VITALS: BP 147/92
[2016-06-08] MEDS: METOPROLOL TARTRATE 100 MG TAB PO SCH (08:11)
[2016-06-08] MEDS: NYSTATIN 500,000 U/5 ML SUSP UDC SS SCH ×2 (08:11→13:43)
--- NOTE | 2016-06-08 08:40 | IPNPDOC ---
Subjective Date Seen The patient was seen on 06/08/16. Subjective Chief Complaint/HPI The patient is a 81-year-old female admitted with a reason for visit of Atrial Flutter With Rapid Ventricular Resp. Events since last encounter Pt states she feels tired. States she is about the same. Denies CP, SOB, Abd pain. Constitutional: Denies: Chills, Fever Pulmonary: Denies: Dyspnea Cardiovascular: Denies: Chest Pain Gastrointestinal: Denies: Abdominal Pain, Nausea, Vomiting Objective Physical Examination General Exam: Positive: Alert, No Acute Distress Eye Exam: Positive: Conjunctiva & lids normal, EOMI, PERRLA, Negative: Sclera icteric ENT Exam: Positive: Atraumatic, Mucous membr. moist/pink, Pharynx Normal Neck Exam: Positive: Supple, Negative: JVD Chest Exam: Positive: Diminished (Decreased BS right base. Left CTA. No W/R/R ) Heart Exam: Positive: Irregular Rhythm, Tachycardic, Negative: Murmurs Telemetry: Positive: Atrial fibrillation Abdomen Exam: Positive: Normal bowel sounds, Soft, Negative: Hepatospenomegaly, Tenderness Extremity Exam: Positive: Normal pulses, Negative: Clubbing, Cyanosis, Edema Skin Exam: Positive: Nl turgor and temperature, Negative: Breakdown, Rash Assessment /Plan Problems (1) Atrial flutter with rapid ventricular response Status: Acute Discussed With: Other Discussed With: (Dr. Roa) Problem Specific Plan: Consult Specialist Problem Text: 06/08 - Cardiology following. Pt was given dig 0.25 yesterday and early am today. On Lopressor 100 mg BID. Anticoagulated with Xarelto. Anticoagulated- Xarelto. 06/06/16 dig 0.75 po load c improvement in rate control. Continue toprol 100q12. Appreciate cardiology's input. 06/04- Cardizem was dc 2/2 HR 130-140; toprol increased to 50 q6. HRs improved to 110s. BPs low normal but acceptable (110s) Cardiac enzymes cycled, neg on admission -TSH WNL -Echo s evidence of thrombus: 1. Probably normal global left ventricular systolic function. There was mild concentric left ventricular hypertrophy. 2. Aortic valve sclerosis with trace aortic regurgitation, but no aortic stenosis. 3. Mildly enlarged left atrium with mitral annulus calcification and mild mitral regurgitation. 4. Moderate tricuspid regurgitation with mild pulmonary hypertension. 5. There were findings consistent with elevated central venous pressure. (2) Non-small cell cancer of right lung Status: Acute Discussed With: Color Receiver Problem Specific Plan: Consult Specialist Problem Text: Likely stage IV based on likely spread to mediastinal nodes ( seen on CT) and supraclavicular adenopathy bilaterally. She'll need a PET as an outpt. -Dr. Marin consulted, appreciate his input. -Final pathology pending. -A considerable amount of time has been dedicated to providing counselling, anticipatory guidance, and education to the patient and her . - No apparent brain mets on MRI - Will need PET as outpt (3) Pleural effusion Status: Acute Problem Specific Plan: Consult Specialist (Dr. Delgado) Problem Text: Likely malignant. Family aware that this portends worse prognosis. Dr. Delgado removed the pigtail catheter on 06/06; she will need f/u in 10d as outpt for repeat cxr and possible pleurx placement. (4) Postobstructive pneumonia Status: Acute Problem Text: D14 ABX. On IV Zosyn and Doxy. Afebrile. WBC improving. Remains asymptomatic (5) Physical deconditioning Status: Acute Problem Text: Oral intake is poor. Mirtazapine started to help c appetite. Added ensure shakes BID. Receiving PT. - still not safe per PT yet. will needs RW and tub chair at home - (scripts in chart) (6) Hypokalemia Status: Acute Problem Text: May be related to Zosyn. 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 Remains stable/asymptomatic low 130s (8) Hypothyroid Status: Chronic Problem Text: Thyroid studies WNL upon admission. Continue synthroid (9) Anxiety Status: Chronic Problem Text: Controlled at home on Wellbutrin. Lorazepam was added as needed, but she has not required any PRN doses. Plan/VTE VTE Prophylaxis Ordered?: Yes (Xarelto) Plan Diet: Continue Current Activity: Encourage Ambulation VS, I&O, 24H, Fishbone Vital Signs/I&O Vital Signs Date Time Temp Pulse Resp B/P Pulse Ox O2 Delivery O2 Flow Rate FiO2 06/08/16 08:11 140 147/92 06/08/16 04:00 Room Air 06/08/16 04:00 97.4 20 94 06/04/16 21:47 2.0 I&O- Last 24 Hours up to 6 AM 06/08/16 06:00 Intake Total 1050 ml Output Total 200 ml Balance 850 ml Laboratory Data 24H LABS Laboratory Tests 2 06/08/16 04:39: Anion Gap 13, White Blood Count 15.7H, Red Blood Count 4.17, Hemoglobin 12.6, Hematocrit 36.3, Mean Corpuscular Volume 87.0, Mean Corpuscular Hemoglobin 30.2 , Mean Corpuscular Hemoglobin Concent 34.7, Red Cell Distribution Width 13.6, Platelet Count 427, Neutrophils (%) (Auto) 91.4H, Lymphocytes (%) (Auto) 3.6L, Monocytes (%) (Auto) 4.0, Eosinophils (%) (Auto) 0.2, Basophils (%) (Auto) 0.1, Neutrophils # (Auto) 14.4H, Lymphocytes # (Auto) 0.6L, Monocytes # (Auto) 0.6, Eosinophils # (Auto) 0.0, Basophils # (Auto) 0.0, Blood Urea Nitrogen 29H, Creatinine 0.79, Sodium Level 133L, Potassium Level 3.8, Chloride Level 95L, Carbon Dioxide Level 25, Calcium Level 9.2, Glomerular Filtration Rate > 60.0, Large Unclassified Cells # 0.1, Large Unclassified Cells % 0.8 CBC/BMP Laboratory Tests 06/08/16 04:39 Calcium Level 9.2, Red Blood Count 4.17, Mean Corpuscular Volume 87.0, Mean Corpuscular Hemoglobin 30.2, Mean Corpuscular Hemoglobin Concent 34.7, Red Cell Distribution Width 13.6, Neutrophils (%) (Auto) 91.4 H, Lymphocytes (%) (Auto) 3.6 L, Monocytes (%) (Auto) 4.0, Eosinophils (%) (Auto) 0.2, Basophils (%) (Auto ) 0.1, Neutrophils # (Auto) 14.4 H, Lymphocytes # (Auto) 0.6 L, Monocytes # ( Auto) 0.6, Eosinophils # (Auto) 0.0, Basophils # (Auto) 0.0 Microbiology Microbiology 06/04/16 Acid Fast Stain - Final, Resulted 06/04/16 Mycobacterial Culture, Resulted Pending 06/04/16 Fungal Smear - Final, Resulted 06/04/16 Fungal Culture, Resulted Pending 06/04/16 Gram Stain - Final, Complete 06/04/16 Anaerobic Culture - Final, Complete 06/04/16 Body Fluid Culture - Final, Resulted 06/03/16 Urine Culture - Final, Complete Adolfo Hooker Jun 08, 2016 08:40
--- NOTE | 2016-06-08 10:06 | REP ---
TWO VIEW CHEST: Two views of the chest are performed and compared to prior study of 06/07/2016. Parenchymal opacities in the right lung base are stable as is small amount of right pleural fluid. Left lung is unchanged in appearance. Cardiomediastinal silhouette is unchanged. IMPRESSION: Stable exam. Signed by Brandon Hooper MD 06/08/2016 01:56 P
[2016-06-08 12:00] VITALS: BP 127/63
[2016-06-08] MEDS ORDERED: ALDA25TA2 PO (13:12)
[2016-06-08] MEDS ORDERED: LOPR1TAB7 PO (13:12)
[2016-06-08] MEDS ORDERED: DIGO0.12 PO (13:12)
[2016-06-08] MEDS ORDERED: MIRT15TA3 PO (13:12)
[2016-06-08] MEDS: RIVAROXABAN 20 MG TAB (XARELTO) PO SCH (13:43)
--- NOTE | 2016-06-08 13:58 | DSES ---
DATE OF ADMISSION: 05/26/2016 DATE OF DISCHARGE: PRIMARY CARE PROVIDER: Warren Marx MD ATTENDING PHYSICIAN: Broderick Esparza MD CONSULTANTS: Dr. Andrew Marin HISTORY OF PRESENT ILLNESS: An 81-year-old female patient of Dr. Marx presented to the emergency department complaining of shortness of breath and weakness. The patient had previously been seen in the emergency room (ER) and found to have a lung mass and postobstructive pneumonia 2 days prior. She was given orders for a prescription for antibiotics but had not started these yet. In the ER on 05/26/2016, she was found to be in new-onset atrial flutter with rapid ventricular response (RVR) and also found to have the postobstructive pneumonia and the lung mass. She was admitted to progressive care unit (PCU) and placed on telemetry. She was started on Cardizem. Cardiology was consulted and saw the patient. She was placed on Zosyn and vancomycin for postobstructive pneumonia. She was found to have two masses of the right lower lobe approximately 5.5 cm. The patient was ultimately started on Lopressor 100 mg twice a day. She was started on digoxin, initially given loading dose and then titrated. She will be discharged home on the Lopressor and the digoxin 0.125 mg daily. The patient was also started on Xarelto. For the patient's lung mass, biopsy was obtained. It showed non-small cell lung cancer, poorly differentiated. Oncology was consulted. The patient was seen by Dr. Marin. The patient was also seen by Dr. Delgado, who ordered pleural fluid drained with pigtail catheter. She will followup with Dr. Marin for consideration of chemotherapy. Dr. Delgado plans on seeing her back in the office 10 days after discharge for chest x-ray, and his plan is if and when the pleural fluid reaccumulates, he will then place a PleurX catheter. On day of discharge, both Dr. Delgado and Dr. Morales felt the patient was stable to go home from their standpoint. The patient was seen by physical therapy and was cleared and was felt to be safe for discharge home and was cleared for discharge. As noted, the patient will need to followup with Dr. Marin, oncology. It is felt that the non-small cell lung cancer is likely stage IV with spread to the mediastinal nodes and supraclavicular adenopathy. Likely, she will need a positron emission tomography (PET) scan as an outpatient. The patient did conclude 14 days of antibiotics with IV Zosyn and doxycycline. She was started on mirtazapine to help with her appetite. She was given a prescription for a rolling walker. She will continue with her home dose of Synthroid. Continue with home dose of Wellbutrin. She will followup in [address] Marx, Dr. Morales, Dr. Marin, and followup in [address] Delgado, per his instructions. PHYSICAL EXAMINATION: Vital signs: Temperature 96.3, pulse 114, respiratory rate 18, blood pressure is 127/63, pulse oximetry 97%. General: The patient is alert, no acute distress. No respiratory distress. Chest is diminished but clear. Heart: Irregular. Abdomen: Positive bowel sounds, soft, nontender. Extremity: No edema. LABORATORIES: WBC 15.7, hemoglobin 12.6, hematocrit 36.3, platelets 427. Sodium 133, potassium 3.8, chloride 95, carbon dioxide 25, BUN 29, creatinine 0.79, glucose 116, calcium 9.2. MEDICATIONS: - digoxin 0.125 mg by mouth daily - metoprolol tartrate 100 mg by mouth twice a day - mirtazapine 15 mg by mouth nightly - Xarelto 20 mg by mouth daily - spironolactone 25 mg by mouth daily - bupropion SR 100 mg by mouth daily - calcium 600 mg by mouth daily - Synthroid 75 mcg by mouth daily - multivitamin by mouth - Drisdol 50,000 units by mouth every other week Prescription for wheeled walker given. DISCHARGE DIAGNOSES: 1. Atrial flutter with rapid ventricular response (RVR). 2. Non-small cell lung cancer with spread to mediastinal and supraclavicular nodes. 3. Pleural effusion. 4. Postobstructive pneumonia. 5. Hypokalemia. 6. Hyponatremia. 7. Hypothyroid. 8. Anxiety.
[2016-06-09] MEDS ORDERED: DIGOXIN 0.125 MG TAB PO SCH (09:00)
== END 2016-06-08 14:12 | disposition home or self-care (01) | DRG 180 ==
LOC: M ED 11:20 → M ED INP 13:59 → M PCU 18:41
PROVIDERS: ADMIT Internal Medicine; ATTEND Family Medicine
PROC: 0BBF3ZX Excision of Right Lower Lung Lobe, Percutaneous Approach, Diagnostic (ICD-10-PCS; principal; 2016-05-29)
PROC: 0W9930Z Drainage of Right Pleural Cavity with Drainage Device, Percutaneous Approach (ICD-10-PCS; 2016-06-04)
DX: C34.31 Malignant neoplasm of lower lobe, right bronchus or lung (principal); J18.9 Pneumonia, unspecified organism; I48.92 Unspecified atrial flutter; E87.1 Hypo-osmolality and hyponatremia; B37.0 Candidal stomatitis; J91.0 Malignant pleural effusion; E03.9 Hypothyroidism, unspecified; E87.6 Hypokalemia; F41.9 Anxiety disorder, unspecified; K21.9 Gastro-esophageal reflux disease without esophagitis; Z98.51 Tubal ligation status; Z87.891 Personal history of nicotine dependence; Z88.1 Allergy status to other antibiotic agents; Z79.899 Other long term (current) drug therapy